=== PATIENT | male | born 1940 | race Caucasian/White ===

== ENCOUNTER 2025-01-20 09:45 | Inpatient (IN) | payer MEDICARE, SELFPAY ==
[2025-01-20] VITALS (8 sets, daily range): BP systolic 101–124; BP diastolic 50–100; PULSE 60–149; RESP 16–25; TEMP 36.6–36.9; O2SAT 93–99; BMI 23.0; BMI 24.7
[2025-01-20] MEDS: 0.9% Normal Saline (1000mL) 1,000 ML 125 ML IV (10:18)
[2025-01-20 10:25] LABS: Hematocrit 42.6 % (40-54); Hemoglobin 14.5 g/dL (13.0-16.5); Immature Granulocytes Count 0.060 X10^3/uL (0.0-0.0); Mean Corp Hgb Conc 34.0 g/dL (32-36); Mean Corpuscular Volume 91.6 fL (80-94); Mean Platelet Vol. 9.4 fl (6.2-12.0); NRBC Flagged by Analyzer 0 % (0-5); POSITIVE DIFFERENTIAL YES; Platelet Count 153 K/mm3 (150-450); RBC Distribution Width CV 14.4 % (11.6-14.6); RBC Distribution Width SD 47.8 fl (35.1-43.9); Red Blood Count 4.65 M/mm3 (4.6-6.2); White Blood Count 13.2 K/mm3 (4.4-11.0)
--- NOTE | 2025-01-20 10:27 | ED.RN ---
THIS RN CALLED PTS TO FIND OUT IF HE WAS ON A BLOOD THINNER AND NORMAL MENTATION. PTS STATES HE IS NORMALLY INTERMITTENTLY CONFUSED AND UNSURE IF HE IS ON A BLOOD THINNER
--- NOTE | 2025-01-20 10:36 | ED.VIS.GI ---
HPI HPI - GI History of Present Illness Chief Complaint: GI Bleed Informant: patient and EMS Limited: dementia Narrative Narrative: Patient is 84-year-old male presenting from [facility] for concern of an episode of hematemesis today. Patient reportedly had 1 episode of vomiting that had coffee-ground substance in it. No caitlin blood reported. Per paperwork patient arrived with he is a full code but we did not get a medication list. Patient is not able to answer questions. SNF says he is ANO x 3 at baseline and EMS states he was ANO x 1 for them. Patient has no complaints. He does not know why he is in the emergency room. Nursing staff able to speak to the patient's who states that he fluctuates in his mentation capabilities. She does not think he is on any blood thinners. Patient tells me that he ate breakfast this morning but does not provide any other history. He states he has no complaints at this time. When asked if he has any chest pain, nausea or abdominal pain he states no and smiles. 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, stage 3b Depression, unspecified Unspecified dementia, unspecified severity, without behavioral disturbance, psychotic disturbance, mood disturbance, and anxiety Wedge compression fracture of t11-T12 vertebra, subsequent encounter for fracture with routine healing Home Medications ?Medication ?Instructions ?Recorded ?Last Taken ?Type clonazepam 0.5 mg tablet 0.5 mg PO Q12H ANXIETY 01/20/25 01/19/25 History divalproex 125 mg tablet,delayed 125 mg PO BID dementia 01/20/25 Unknown History release memantine 5 mg tablet 5 mg PO BID dementia 01/20/25 Unknown History polyethylene glycol 3350 17 17 g PO DAILY constipation 01/20/25 Unknown History gram/dose oral powder (Miralax) sertraline 100 mg tablet (Zoloft) 100 mg PO DAILY depression 01/20/25 Unknown History tamsulosin 0.4 mg capsule 0.4 mg PO QHS BPH 01/20/25 Unknown History Allergy/AdvReac Type Severity Reaction Status Date / Time meperidine Allergy Unknown PT UNSURE Verified 01/20/25 09:47 OF REACTION oxycodone Allergy Unknown PT UNSURE Verified 01/20/25 09:47 OF REACTION Social History Smoking Status: Never smoker ROS ROS ED Review of Systems ROS Unobtainable: due to mental status EXAM Physical Exam Const Vital Signs: 01/20/25 09:48 01/20/25 11:29 01/20/25 11:45 Temperature 97.9 F 98.3 F Temperature Source Oral Oral Pulse Rate 70 66 66 Respiratory Rate 25 H 24 H 21 H Blood Pressure 106/54 L 114/100 H 110/61 Blood Pressure Mean 71 104 77 Pulse Ox 96 98 98 Oxygen Delivery Method Room Air Room Air Room Air 01/20/25 12:51 Temperature 98.3 F Temperature Source Pulse Rate 65 Respiratory Rate 16 Blood Pressure 112/83 H Blood Pressure Mean 92 Pulse Ox 98 Oxygen Delivery Method Positive well nourished and well developed General Appearance ED: well developed, NAD and pallor HEENT Reports dry mucous membranes Mouth ED: Yes dry mucous membranes Mouth: dry mucous membranes Eyes PERRL and EOMs intact bilaterally General Eye ED: Negative for pale conjunctiva Neck supple Resp normal respiratory effort and clear to auscultation bilaterally Cardio regular rate and regular rhythm GI non-tender and non-distended GI Narrative: Chaperoned rectal exam performed. Brown stool noted with no significant fecal impaction in the rectal vault. Stool is Hemoccult positive. Auscultation: normoactive bowel sounds Palpation: soft; Negative for tender or guarding Extremity full ROM General Extremety ED: Negative for edema General Extremity: Negative for edema Neuro moves all extremities Sensorium / Orientation: alert and oriented to person Motor Exam: Negative for general weakness Psych mental status grossly normal Psych Narrative: Pleasantly demented Skin General Skin Exam: pallor; Negative for jaundice MDM MDM MDM Narrative Medical decision making narrative: Patient is evaluated for new report of episode of vomiting with coffee-ground emesis prior to arrival. History is limited from the patient. He has no physical complaints. Differential includes not limited to upper GI bleeding, gastric ulcer, gastritis, aspiration, pancreatitis, cholecystitis, symptomatic anemia, Depakote toxicity (patient is on Depakote at baseline), dehydration and MAYRA. Patient is asymptomatic. Initially given gentle IV fluids in the emergency room however he is found have a leukocytosis of 13.2 and an elevated lactate of 3.1. Unclear if this is infectious versus associated with dehydration versus acute blood loss. He does not have any signs of active hemorrhage in the ER and his hemoglobin is actually normal at 14.5. He does have an elevated BUN as well as creatinine (BUN is at his baseline at 42 and creatinine is at baseline at 1.81). Patient is given IV Protonix in the emergency room. He is Hemoccult positive. Remainder of workup is largely negative. CT of the chest abdomen pelvis is added on looking for source of possible infection as well as further evaluation of the GI tract given report of vomiting and to rule out obstruction. He does have retained stool throughout the colon but no fine emergency room physician assistant with acute diverticulitis. There is questionable stool impaction however this is not consistent with rectal exam. Given patient's leukocytosis and lactic acidosis as well as report of likely hematemesis prior to arrival patient will be admitted for further observation. Is given a bolus of IV fluids in the emergency room. Case discussed with admitting surgeon, Dr. Azul. Lab Data Attestation: I reviewed the patient's lab results. Labs: Laboratory Results - last 24 hr 01/20/25 01/20/25 10:15 10:35 WBC 13.2 H RBC 4.65 Hgb 14.5 Hct 42.6 MCV 91.6 MCH 31.2 MCHC 34.0 RDW Std Deviation 47.8 H RDW Coeff of Eva 14.4 Plt Count 153 MPV 9.4 Immature Gran % (Auto) 0.500 Neut % (Auto) 88.2 H Lymph % (Auto) 3.4 L [place] % (Auto) 7.7 Eos % (Auto) 0.0 Baso % (Auto) 0.2 Absolute Neuts (auto) 11.6 H Absolute Lymphs (auto) 0.45 L Nucleated RBC % 0 PT 14.7 INR 1.1 APTT 24.5 Sodium 137 Potassium 5.6 H Chloride 102 Carbon Dioxide 20.2 L Anion Gap 15 BUN 42 H Creatinine 1.81 H Estim Creat Clear Calc 35.55 L Est GFR (MDRD) Non-Af 36 L BUN/Creatinine Ratio 23.4 H Glucose 161 H Lactic Acid 3.1 H* Calcium 9.7 Phosphorus 3.0 Magnesium 1.9 Total Bilirubin 0.43 AST 26 ALT 22 Alkaline Phosphatase 101 Total Protein 7.5 Albumin 4.0 Globulin 3.5 Albumin/Globulin Ratio 1.2 Lipase 26 Valproic Acid 10 L Blood Type A POSITIVE Antibody Screen NEGATIVE Radiography Diagnostic Testing: Clinical Impression(s) from Imaging Studies Chest/Abdomen/Pelvis CT 01/20/25 11:18 IMPRESSION: No suspicious solid organ abnormality, nonobstructing renal stones. Retained stool throughout the colon with scattered diverticula, no CT evidence of acute diverticulitis, stool may be impacted No free intraperitoneal fluid, air, or suspicious adenopathy Degenerative bony changes Reading Location: [facility] Rhythm Strip Rhythm Strip: Sinus Rhythm Rate: 69 Ectopy: None EKG Initial EKG: Attestation: I personally reviewed and interpreted this EKG as follows: Interpretation: Sinus Rhythm Comments: Normal sinus rhythm rate of 69 bpm Normal axis, normal intervals Normal ST segment Management Discussion w/another healthcare provider: Hospitalist Discharge Plan Dx/Rx/DC Orders Clinical Impression: Vomiting, Upper gastrointestinal bleeding, CKD (chronic kidney disease), Leukocytosis, Elevated lactic acid level Disposition Disposition: Acute Care Hospital [facility] Discharge Date/Time: 01/20/25 13:52
[2025-01-20 10:53] LABS: AST(SGOT) 26 U/L (<=37); Alanine Aminotransfer ALT/SGPT 22 U/L (<=46); Albumin, Serum 4.0 g/dL (3.4-4.8); Alkaline Phosphatase 101 U/L (40-129); Anion Gap 15 (5-15); BUN 42 mg/dL (4-19); BUN/Creat Ratio 23.4 RATIO (10-20); Calcium,Total 9.7 mg/dL (7.6-11.0); Carbon Dioxide 20.2 mmol/L (21.0-32.0); Chloride 102 mmol/L (98-108); Estimated Creatinine Clearance 35.55 ml/min (50-250); Globulin 3.5 g/dL (2.2-4.2); Glucose 161 mg/dL (70-99); Lipase 26 U/L (13-75); Potassium 5.6 mmol/L (3.3-5.1)
[2025-01-20] MEDS: Pantoprazole Sodium 40 MG in 0.9% Normal Saline (100mL MB+) 100 ML 300 MG IV ×2 (11:00→23:07)
[2025-01-20 11:04] LABS: Valproic Acid (Depakene) Level 10 ug/mL (50-100)
[2025-01-20 11:08] LABS: Prothrombin Time (Protime)PT. 14.7 SECONDS (11.7-14.9)
--- NOTE | 2025-01-20 11:08 | EKG12_ITS ---
Test Reason : GI BLEED Blood Pressure : */* mmHG Vent. Rate : 69 BPM Atrial Rate : 69 BPM P-R Int : 200 ms QRS Dur : 86 ms QT Int : 380 ms P-R-T Axes : 2 52 51 degrees QTcB Int : 407 ms Normal sinus rhythm Normal ECG Confirmed by NAZARIO HOLCOMB, EDGAR ([id number]), graphics editor RAH CANTU ([id number]) on 01/24/2025 6:00:12 AM Referred By: Confirmed By: EDGAR LANGE MD
[2025-01-20 11:09] LABS: Partial Thromboplast Time 24.5 Seconds (24.1-36.2)
--- NOTE | 2025-01-20 11:18 | CT_ITS ---
PROCEDURE: CT CHEST, ABD, PELVIS WO CONT 01/20/2025 REASON FOR EXAM: ELEVATED LACTATE, HEMATEMESIS TECHNIQUE: Chest, abdomen and pelvis CT without intravenous contrast. Coronal and Sagittal reconstruction series were provided. One or more dose reduction techniques were used (e.g., Automated exposure control, adjustment of the mA and/or kV according to patient size, use of iterative reconstruction technique. No oral contrast. RADIATION DOSE SUMMARY: CTDlvol: 25.23 mGy DLP: 1154.55 mGycm COMPARISON: None FINDINGS: CT CHEST: Lung windows show scattered patchy airspace opacifications in both lung quinn consistent with multifocal pneumonitis along with small bilateral pleural effusions, and bibasilar atelectasis. There is nonspecific pleural thickening in both hemithoraces. Soft tissue windows show a normal-appearing thyroid gland. No suspicious axillary, mediastinal or perihilar adenopathy. Peripheral calcifications in the thoracic aorta without aneurysm. There are calcified coronary vessels. Bony structures show degenerative change. Pacer leads noted along the base of the heart CT ABDOMEN / PELVIS: Noncontrast technique limits evaluation of the abdominal and pelvic viscera. Liver: Normal size. No mass. Gallbladder: Surgically absent. Spleen: Normal size. Scattered calcified granulomata. Pancreas: Normal size without evidence of mass surrounding inflammation or ductal dilation. Adrenals: Unremarkable Kidneys: No obstructive uropathy or suspicious solid renal lesion, there are punctate nonobstructing renal stones. Bladder: Distends normally Bowel: Small bowel loops are unremarkable, no evidence of obstruction. Retained stool noted throughout the colon with extensive diverticular disease, no CT evidence of acute diverticulitis. Retained stool noted in the distended rectum suggests there may be impaction. Appendix: Not visualized Lymph nodes: No suspicious mesenteric or retroperitoneal lymphadenopathy Vasculature: Peripheral calcifications in the ectatic abdominal aorta without aneurysm Peritoneum / Retroperitoneum: No free air or fluid Bones: Degenerative bony changes, replaced right hip joint free of complication CT/CT Chest, Abd, Pelvis WO Cont IMPRESSION: No suspicious solid organ abnormality, nonobstructing renal stones. Retained stool throughout the colon with scattered diverticula, no CT evidence of acute diverticulitis, stool may be impacted No free intraperitoneal fluid, air, or suspicious adenopathy Degenerative bony changes Reading Location: [id number]
[2025-01-20] MEDS: 0.9% Normal Saline (1000mL) 1,000 ML 999 ML IV (11:35)
--- NOTE | 2025-01-20 13:04 | PCM.HP.STD ---
HPI - General General Date of Admission: 01/20/25 Date of Service: 01/20/25 Chief Complaint: History unclear. 1 episode of coffee-ground vomiting. Altered mental status. Cough unclear duration HPI Narrative SAMIA RIVERA, is a 84 M with history of dementia/anxiety/depression on multiple medications including clonazepam, divalproex and memantine was sent to ED from [facility] for 1 episode of coffee-ground emesis. Patient is also confused and disoriented to time place and person. As per senior living patient is on AO x 3 at baseline but is hard to believe. As per patient's he fluctuates on his mental capacity and cognition. Patient himself states he has cough but does not know duration but seems chronic. Patient did not have fever. In the ED, the ED physician did the rectal exam and the guaiac was positive and the stool looked brown and stool was not impacted. Patient does not any specific question regarding duration of cough, type, shortness of breath chest pain or abdominal pain nausea but he has inattention and taking out pulse oximetry from finger In ED, overall vitals are stable. CT chest and abdomen was done shows sketchy patchy airspace affecting both lower lung quinn/multifocal pneumonitis along with small bilateral pleural effusion and bibasilar atelectasis. CT abdomen shows retained stool throughout the colon with scattered diverticula but no CT evidence of acute diverticulitis. No free intraperitoneal fluid air or suspicious adenopathy. Reported stool may be impacted. I talked to patient's for history she could not give detailed history but agreeable for DNR CC arrest with no intubation [facility] Medical History Other constipation Generalized anxiety disorder Other symbolic dysfunctions Need for assistance with personal care Difficulty in walking, not elsewhere classified Displaced fracture of third metatarsal bone, right foot, subsequent encounter for fracture with routine healing Muscle weakness (generalized) Benign prostatic hyperplasia with lower urinary tract symptoms Presence of cardiac pacemaker Chronic kidney disease, stage 3b Depression, unspecified Unspecified dementia, unspecified severity, without behavioral disturbance, psychotic disturbance, mood disturbance, and anxiety Wedge compression fracture of t11-T12 vertebra, subsequent encounter for fracture with routine healing Home Medications ?Medication ?Instructions ?Recorded ?Last Taken ?Type clonazepam 0.5 mg tablet 0.5 mg PO Q12H ANXIETY 01/20/25 01/19/25 History divalproex 125 mg tablet,delayed 125 mg PO BID dementia 01/20/25 Unknown History release memantine 5 mg tablet 5 mg PO BID dementia 01/20/25 Unknown History polyethylene glycol 3350 17 17 g PO DAILY constipation 01/20/25 Unknown History gram/dose oral powder (Miralax) sertraline 100 mg tablet (Zoloft) 100 mg PO DAILY depression 01/20/25 Unknown History tamsulosin 0.4 mg capsule 0.4 mg PO QHS BPH 01/20/25 Unknown History Allergy/AdvReac Type Severity Reaction Status Date / Time meperidine Allergy Unknown PT UNSURE Verified 01/20/25 09:47 OF REACTION oxycodone Allergy Unknown PT UNSURE Verified 01/20/25 09:47 OF REACTION Social History Smoking Status: Never smoker ROS Review of Systems ROS Unobtainable: due to mental condition and due to mental status Vital Signs Vital Signs Vital Signs: 01/20/25 09:48 01/20/25 11:29 01/20/25 11:45 Temperature 97.9 F 98.3 F Temperature Source Oral Oral Pulse Rate 70 66 66 Respiratory Rate 25 H 24 H 21 H Blood Pressure 106/54 L 114/100 H 110/61 Blood Pressure Mean 71 104 77 Pulse Ox 96 98 98 Oxygen Delivery Method Room Air Room Air Room Air 01/20/25 12:51 Temperature 98.3 F Temperature Source Pulse Rate 65 Respiratory Rate 16 Blood Pressure 112/83 H Blood Pressure Mean 92 Pulse Ox 98 Oxygen Delivery Method Weight Weight: 189 lb 2.506 oz Body Mass Index (BMI) 23.0 Physical Exam Narrative General: Awake, inattention, confused disoriented to time place and person. HEENT: Atraumatic, PERRLA, EOMI, Normocephalic. Oral: Oral mucosa dry no Gingival or Mucosal Lesions/ Ulcerations Neck: Supple, No JVD, Negative Carotid Bruits Chest wall/Lungs: Air entry diminished in bilateral lung bases. Mild bilateral basilar crackle crepitations. No hypoxia or tachypnea Cardiovascular: Regular rate and rhythm, Normal S1,S2, No M/G/R Abdomen: Bowel Sounds Present, Soft, Non Tender, Non-Distended : No dysuria. No renal angle tenderness. No suprapubic tenderness. Extremities: No edema, Capillary Refill Less than 3 Seconds Skin: Small, left suprascapular region scab and cutaneous scratch. No active infected wound. Musculoskeletal: No Tenderness to Palpation of Joints or Extremities. Degenerative bony arthritis of bilateral knees Neurological: Cranial nerves II-XII grossly intact, DTR 2+/4. No acute focal neurological deficit. Psych/Mental Status: Flat affect, dementia Results Lab / Micro Data 01/20/25 10:15 01/20/25 10:15 Labs: Laboratory Results - last 24 hr 01/20/25 10:15: WBC 13.2 H, RBC 4.65, Hgb 14.5, Hct 42.6, MCV 91.6, MCH 31.2, MCHC 34.0, RDW Std Deviation 47.8 H, RDW Coeff of Eva 14.4, Plt Count 153, MPV 9.4, Immature Gran % (Auto) 0.500, Neut % (Auto) 88.2 H, Lymph % (Auto) 3.4 L, [place] % (Auto) 7.7, Eos % (Auto) 0.0, Baso % (Auto) 0.2, Absolute Neuts (auto) 11.6 H, Absolute Lymphs (auto) 0.45 L, Nucleated RBC % 0, Sodium 137, Potassium 5.6 H, Chloride 102, Carbon Dioxide 20.2 L, Anion Gap 15, BUN 42 H, Creatinine 1.81 H, Estim Creat Clear Calc 35.55 L, Est GFR (MDRD) Non-Af 36 L, BUN/Creatinine Ratio 23.4 H, Glucose 161 H, Lactic Acid 3.1 H*, Calcium 9.7, Total Bilirubin 0.43, AST 26, ALT 22, Alkaline Phosphatase 101, Total Protein 7.5, Albumin 4.0, Globulin 3.5, Albumin/Globulin Ratio 1.2, Lipase 26, Blood Type A POSITIVE, Antibody Screen NEGATIVE 01/20/25 10:35: PT 14.7, INR 1.1, APTT 24.5, Valproic Acid 10 L Micro: Microbiology 01/20/25 11:30 Stool Stool Occult Blood (MAG) - Final Occult Blood Positive Imaging Radiology Impression Chest/Abdomen/Pelvis CT 01/20/25 11:18 IMPRESSION: No suspicious solid organ abnormality, nonobstructing renal stones. Retained stool throughout the colon with scattered diverticula, no CT evidence of acute diverticulitis, stool may be impacted No free intraperitoneal fluid, air, or suspicious adenopathy Degenerative bony changes Reading Location: [facility] Assessment & Plan Assessment/Plan (1) Upper gastrointestinal bleeding: (2) Aspiration pneumonia: PLAN: Plan This 34-year-old gentleman with history of dementia was sent from senior living for 1 episode of coffee-ground emesis and possible aspiration 1. Possible aspiration pneumonitis: Patient has cough and cognitive dysfunction. CT chest shows scattered patchy airspace opacification in both lung quinn consistent with multifocal pneumonitis along with small bilateral pleural effusion and bibasilar atelectasis. Empirically patient started on IV Unasyn. Triple PCR. Lactic acid 3.1 but patient does not look septic and does not have SIRS criteria therefore does not qualify for sepsis. Lactic acid elevated probably from decreased perfusion and CKD. Speech therapy evaluation 2. Suspected upper GI bleed: Patient had coffee-ground emesis. BUN/creatinine ratio 23.4. H&H 14.5/42. Monitor H&H every 8 hourly. As per ED physician Coactin stool was positive and was brown in color. No rectal impaction of the stool. CT shows diverticulosis but no evidence of acute diverticulitis. Retained stool throughout the colon. Stool softener and Dulcolax suppository ordered. Home medication does not show antiplatelet or anticoagulant agent. IV PPI 40 mg twice daily ordered 3. CKD stage IIIb: Patient creatinine on baseline. Last BUN/creatinine 42/1.79 October 13 currently 42/1.81. Clinically patient looks dehydrated therefore IV fluid ordered 4. Dementia with history of anxiety and depression: Patient on Depakote, memantine, clonazepam and Zoloft. Twelve-lead EKG shows NSR 69 bpm, normal EKG. Continue hold oral medication as swallow function needs evaluation. 5. Chronic constipation: As mentioned above. On a stool softener and Dulcolax suppository Living will/advanced directive/end of life care: Patient does not have living will or advanced directive. The patient himself has dementia and does not have understanding of complexities of advanced directive. After discussion of benefits/risks procedures involved with full code, DNR CC arrest and DNR CC to patient's , her POA for health , she she understood and said DNR CC arrest with no intubation. She said patient did not want CPR or intubation. DNR CC arrest with no intubation. As per POA, patient does not want artificial life support including intubation, tube feed, ventilator and/chest compression, central venous catheter, vasopressor and DC shock if needed Total time spent in [id number] encounter in discussion of advanced directive 17 minutes. Microbiology Past 72 Hours 01/20/25 12:30 Mucosa - Nose SARS-CoV-2, Influenza & RSV (PCR) - Final 01/20/25 11:30 Stool Stool Occult Blood (MAG) - Final Occult Blood Positive Laboratory Results 01/20/25 10:15: WBC 13.2 H, RBC 4.65, Hgb 14.5, Hct 42.6, MCV 91.6, MCH 31.2, MCHC 34.0, RDW Std Deviation 47.8 H, RDW Coeff of Eva 14.4, Plt Count 153, MPV 9.4, Immature Gran % (Auto) 0.500, Neut % (Auto) 88.2 H, Lymph % (Auto) 3.4 L, [place] % (Auto) 7.7, Eos % (Auto) 0.0, Baso % (Auto) 0.2, Absolute Neuts (auto) 11.6 H, Absolute Lymphs (auto) 0.45 L, Nucleated RBC % 0, Sodium 137, Potassium 5.6 H, Chloride 102, Carbon Dioxide 20.2 L, Anion Gap 15, BUN 42 H, Creatinine 1.81 H, Estim Creat Clear Calc 35.55 L, Est GFR (MDRD) Non-Af 36 L, BUN/Creatinine Ratio 23.4 H, Glucose 161 H, Lactic Acid 3.1 H*, Calcium 9.7, Phosphorus 3.0, Magnesium 1.9, Total Bilirubin 0.43, AST 26, ALT 22, Alkaline Phosphatase 101, Total Protein 7.5, Albumin 4.0, Globulin 3.5, Albumin/Globulin Ratio 1.2, Lipase 26, Blood Type A POSITIVE, Antibody Screen NEGATIVE 01/20/25 10:35: PT 14.7, INR 1.1, APTT 24.5, Valproic Acid 10 L 01/20/25 14:48: Lactic Acid 2.6 H* Clinical Impression(s) from Imaging Studies Chest/Abdomen/Pelvis CT 01/20/25 11:18 IMPRESSION: No suspicious solid organ abnormality, nonobstructing renal stones. Retained stool throughout the colon with scattered diverticula, no CT evidence of acute diverticulitis, stool may be impacted No free intraperitoneal fluid, air, or suspicious adenopathy Degenerative bony changes Charges/Coding Visit Charges Inpatient E&M: 01306 Init Hosp L3 Procedures Hospitalists Procedures: 94032 Advncd Care Plan 30 Min
[2025-01-20] MEDS: Azithromycin 500 MG in 0.9% Normal Saline (250mL Bag) 250 ML 250 MG IV (13:22)
[2025-01-20 13:56] LABS: Magnesium 1.9 mg/dL (1.5-2.2)
[2025-01-20 14:19] LABS: Reflex Lactate? Y
[2025-01-20] MEDS: Ampicillin/Sulbactam 3 GM in 0.9% Normal Saline (100mL MB+) 100 ML IV ×2 (15:50→18:25)
[2025-01-20] MEDS: 0.9% Normal Saline (1000mL) 1,000 ML 100 ML IV (18:25)
--- NOTE | 2025-01-20 23:25 | NURSING ---
during rounds, nurse entered pt room, pt had an skin tear on left shoulder. skin tear cleasned, dressed w/ adaptic, guaze, tape. pt tolerated well
[2025-01-20 23:54] LABS: Mucous, Urine 0 SEEN /hpf (<or=2+); Red Blood Cells-Urine 0 SEEN /hpf (0-5); Squamous Epithelial Cells - UA 0 SEEN /hpf (0-5)
[2025-01-21] VITALS (24 sets, daily range): BP systolic 104–129; BP diastolic 49–78; PULSE 60–105; RESP 18–33; TEMP 36.6–37.1; O2SAT 6–100; BMI 24.6
[2025-01-21] MEDS: Ampicillin/Sulbactam 3 GM in 0.9% Normal Saline (100mL MB+) 100 ML IV ×5 (00:15→23:48)
--- OUTSIDE RECORDS SUMMARY | 2025-01-21 00:24 | XMS RPT_ITS | CCD ---
Author Organization [facility] Care Team Providers Care Manager Construction Name Role Phone KEREN HOLCOMB, DR JENNIFER Song Primary Care Unavailab Shan HOLCOMB, [place]ER[place] Consulting Unavailable MARK TEIXEIRA DO Admitting Unavailable ALIS HOLCOMB, [place] Attending Unavailable TERA HOLCOMB, DR MCINTOSH Attending Un available KEREN HOLCOMB, DR JENNIFER Song Primary Care Unavailab taylor BOWDEN, RICA Attending Un available KEREN HOLCOMB, DR JENNIFER Song Primary Care Unavailab Josiane HOLCOMB, DR JENNIFER Song Attending Unavailab taylor VELIZ MD, DR JENNIFER Song Primary Care Unavailab taylor BOWDEN, RICA Attending Un available KEREN HOLCOMB, DR JENNIFER Song Primary Care Unavailab taylor VELIZ MD, DR JENNIFER Song Attending Unavailab taylor VELIZ MD, DR JENNIFER Song Primary Care Unavailab JENNIFER Joshua Primary Care Unavailable RAYMOND MARTINES Admitting UnavailUMANG Pisano Attending Unavailable NICKO JARRETT III Consulting Unavailable JENNIFER VELIZ Primary Care Unavailable CURTIS ANNA Referring Unavailable JENNIFER VELIZ Primary Care Unavailable JENNIFER VELIZ Primary Care Unavailable CURTIS ANNA Attending Unavailable JENNIFER VELIZ Primary Care Unavailable Jeniffer Gaona Attending Unavailable Allergies Allergy Classification Reported Allergen(s) Allergy Type Date of Onset Reaction(s) Facility (1 source) Meperidine; Translations: [MEPERIDINE] Drug Allergy 04-28-2009 [facility] Repository (1 source) oxyCODONE; Translations: [OXYCODONE] Drug Allergy 03-31-2024 [facility] Repository Problems Active Problems Problem Classification Problem Date Documented Da te Episodic/Chronic Anxiety disorders (4 sources) Anxiety disorder, unspecified; Translations: [Anxiety disorder, unspecified] Onset: 02-26-2023 Chronic Cardiac dysrhythmias (3 sources) Sick sinus syndrome; Translations: [Sick sinus syndrome] Onset: 09-02-2022 Chronic Chronic kidney disease (1 source) Chronic kidney disease, unspecified; Translations: [Anemia of chronic renal failure, unspecified CKD stage] Onset: 03-15-2024 Chronic Chronic kidney disease (3 sources) Chronic kidney disease; Translations: [Chronic kidney disease, stage 3 unspecified] Onset: 02-17-2024 Conduction disorders (1 source) Presence of cardiac pacemaker; Translations: [Pacemaker] Onset: 04-01-2024 Chronic Deficiency and other anemia (1 source) Anemia in chronic kidney disease; Translations: [Anemia of chronic renal failure, unspecified CKD stage] Onset: 03-15-2024 Chronic Esophageal disorders (2 sources) Gastro-esophageal reflux disease without esophagitis; Translations: [Gastro-esophageal reflux disease without esophagitis] Onset: 02-17-2024 Chronic Essential hypertension (2 sources) Essential (primary) hypertension; Translations: [Essential (primary) hypertension] Onset: 02-26-2023 Chronic Malaise and fatigue (1 source) Weakness; Translations: [Generalized weakness] Onset: 08-16-2024 Episodic Other connective tissue disease (1 source) Repeated falls; Translations: [Multiple falls] Onset: 08-16-2024 Episodic Other endocrine disorders (1 source) Secondary hyperparathyroidism , not elsewhere classified; Translations: [Secondary hyperparathyroidism , non-renal (HCC)] Onset: 03-15-2024 Chronic Other nervous system disorders (1 source) Difficulty in walking, not elsewhere classified; Translations: [Impaired ambulation] Onset: 08-16-2024 Chronic Other nutritional; endocrine; and metabolic disorders (2 sources) Abnormal weight loss; Translations: [Abnormal weight loss] Onset: 02-26-2023 Episodic Other screening for suspected conditions (not mental disorders or infectious disease) (2 sources) Encounter for screening for lipoid disorders; Translations: [Encounter for screening for lipoid disorders] Onset: 02-26-2023 Episodic Residual codes; unclassified (2 sources) Other amnesia; Translations: [Other amnesia] Onset: 02-26-2023 Episodic Residual codes; unclassified (1 source) Altered mental status, unspecified; Translations: [Altered mental status, unspecified] Onset: 10-16-2024 Episodic Spondylosis; intervertebral disc disorders; other back problems (4 sources) Dorsalgia, unspecified; Translations: [Dorsalgia, unspecified] Onset: 02-26-2023 Episodic Past or Other Problems Problem Classification Problem Date Documented Da te Episodic/Chronic Fluid and electrolyte disorders (2 sources) Hyperkalemia; Translations: [Hyperkalemia] Onset: 09-06-2022 Episodic Immunizations and screening for infectious disease (2 sources) Encounter for screening for other viral diseases; Translations: [Encounter for screening for other viral diseases] Onset: 09-02-2022 Episodic Other diseases of kidney and ureters (2 sources) Disorder of kidney and ureter, unspecified; Translations: [Disorder of kidney and ureter, unspecified] Onset: 09-06-2022 Episodic Results Test Name Value Interpretation Reference Range Facility CBC panel Auto (Bld)on 08-20 Erythrocyte distribution width (RBC) [Ratio] 13.9 % Normal 11.5-15.0 [facility] Comment on above: Order Comment: Specimen Type: BLOOD SPEC IMEN Ordering Facility: [facility] Address: [address] [place] [address] Performed By: #### 3 084-1, 273-8, 81388-7 #### [facility] CLIA [id number] [address] [place] [address] [place] Hematocrit (Bld) [Volume fraction] 34.2 % Low 39.0-51.0 [facility] Comment on above: Order Comment: Specimen Type: BLOOD SPEC IMEN Ordering Facility: [facility] Address: [address] [place] [address] Performed By: #### 3 084-1, 2735-8, 60548-3 #### [facility] CLIA [id number] [address] [place] [address] [place] Hemoglobin (Bld) [Mass/Vol] 11.7 g/dL Low 13.0-17.0 [facility] Comment on above: Order Comment: Specimen Type: BLOOD SPEC IMEN Ordering Facility: [facility] Address: [address] [place] [address] Performed By: #### 3 084-1, 2730-11, #### [facility] CLIA [id number] [address] [place] [address] [place] MCH (RBC) [Entitic mass] 31.6 pg Normal 26.0-34.0 [facility] Comment on above: Order Comment: Specimen Type: BLOOD SPEC IMEN Ordering Facility: [facility] Address: [address] [place] [address] Performed By: #### 3 084-1, 2730-11, #### [facility] CLIA [id number] [address] [place] [address] [place] MCHC (RBC) [Mass/Vol] 34.2 g/dL Normal 30.5-36.0 [facility] Comment on above: Order Comment: Specimen Type: BLOOD SPEC IMEN Ordering Facility: [facility] Address: [address] [place] [address] Performed By: #### 3 084-1, 2730-11, #### [facility] CLIA [id number] [address] [place] [address] [place] MCV (RBC) [Entitic vol] 92.4 fL Normal 80.0-100.0 [facility] Comment on above: Order Comment: Specimen Type: BLOOD SPEC IMEN Ordering Facility: [facility] Address: [address] [place] [address] Performed By: #### 3 084-1, 2730-11, #### [facility] CLIA [id number] [address] [place] [address] [place] Nucleated RBC (Bld) [#/Vol] 10*3/uL Normal <0.01 [facility] Comment on above: Order Comment: Specimen Type: BLOOD SPEC IMEN Ordering Facility: [facility] Address: [address] [place] [address] Performed By: #### 3 084-1, 2730-11, #### [facility] CLIA [id number] [address] [place] [address] [place] Platelet mean volume (Bld) [Entitic vol] 9.3 fL Normal 9.0-12.7 [facility] Comment on above: Order Comment: Specimen Type: BLOOD SPEC IMEN Ordering Facility: [facility] Address: [address] [place] [address] Performed By: #### 3 084-1, 2730-11, #### [facility] CLIA [id number] [address] [place] [address] [place] Platelets (Bld) [#/Vol] 151 10*3/uL Normal 150-400 [facility] Comment on above: Order Comment: Specimen Type: BLOOD SPEC IMEN Ordering Facility: [facility] Address: [address] [place] [address] Performed By: #### 3 084-1, 2730-11, #### [facility] CLIA [id number] [address] [place] [address] [place] RBC (Bld) [#/Vol] 3.70 10*6/uL Low 4.20-6.00 [facility] Comment on above: Order Comment: Specimen Type: BLOOD SPEC IMEN Ordering Facility: [facility] Address: [address] [place] [address] Performed By: #### 3 084-1, 2730-11, #### [facility] CLIA [id number] [address] [place] [address] [place] WBC (Bld) [#/Vol] 5.70 10*3/uL Normal 3.70-11.00 [facility] Comment on above: Order Comment: Specimen Type: BLOOD SPEC IMEN Ordering Facility: [facility] Address: [address] [place] [address] Performed By: #### 3 084-1, 2730-11, 76549-7 #### [facility] CLIA [id number] [address] [place] [address] OF [facility] CNDSon 08-20-2024 CNDS HNO ID: [id number] Author: UMANG WOOD MD Service: Hospital Medicine Author Type: Physician Type: Discharge Summary Filed: 08/20/2024 11:23 Note Text: P DISCHARGE SUMMARY PATIENT NAME: Samia Rivera ADMISSION DATE: 08/16/2024 DISCHARGE DATE: 08/20/2024 Attending Physician: Umang Wood MD Code Status: Full Code Highest Readmission Risk Score: 20 The 30 day readmissions risk score is derived from an internally validated risk model which evaluates patient level characteristics, utilization history, medication orders and lab results up until the day of discharge. Patients with a score of 39 or above are considered highest risk for readmission. Specific patient level drivers will be listed at the bottom of the summary. Reason for Hospitalization: Recurrent falls 83 years old with past medical history of dementia, sick sinus syndrome status post pacemaker, CKD stage IIIb, hypertension, secondary hyperparathyroidism, BPH and depression presented on account of frequent recurrent falls with generalized weakness over the last few weeks. In the ED, vital signs are unremarkable. CMP showed creatinine 1.75 with a CO2 of 20. CBC showed hemoglobin of 12, D-dimer 69883. Viral panel unremarkable. Imaging showed deformity change. Otherwise unremarkable Hospital Course: Recurrent falls Generalized weakness Moderate T12 compression deformity Moderate to severe degenerative changes of mild and lower spine [] PT and OT recommended SNF, [] Follow-up as an outpatient Right foot pain - X-ray of the foot showed minimally impacted fracture of the 2nd through 4th metatarsal with osteopenia and diffuse soft tissue -Podiatry was consulted can weight-bear as tolerated in a surgical shoe with a walker if tolerable Elevated D-dimer -Reported some chest pain and shortness of breath on admission however patient is demented and poor historian - I did ask him hide reported no chest pain - D-dimer was obtained by admitting provider and came back [id number] - No leg swelling -Ultrasound of legs with no DVT - V/Q with low probability Chronic comorbidities PPI Dementia Depression CKD Anemia [] Continue home medications as deemed appropriate CODE STATUS is full code DVT prophylaxis heparin subcu The need for hospitalization- pending placement Consulting Teams During Hospitalization: Podiatry Treatment Team: Attending Provider: Umang Wood MD Attending: MR CHARLOTTE HAWTHORNE Consulting: Nicko Jarrett III, DPM Patient Condition @ Discharge: Stable Discharge Disposition: Residential Facility Residential Facility Discharge Checklist: Has Food And Nutrition Supervisor been notified of pending discharge today: Yes Medications reconciled: Yes Follow-up appointment orders placed: Yes Does the patient have a PICC line or central line: No Discharge medications reviewed: Yes Meds to Beds used: No General: Alert oriented x 1-2 HEENT: Normal cephalic, atraumatic, PERRLA, TM's normal, Nose clear, Mouth normal Neck: Negative hepatojugular reflux or jugular venous distention, negative carotid bruit. Lungs: Clear to auscultation, no wheezing, rales, or rhonchi. Cardiac: Regular rhythm and rate, S1-S2 within normal limits, no murmurs, gallops were appreciated, no rubs. Abdomen: Soft, nontender, nondistended, no HSM detected, bowel sounds are active. Dry skin Information Provided to Patient: Follow-up with primary care DIET: Resume pre-hospital diet ACTIVITY: Resume pre-hospital activity WOUND/SURGICAL SITE CARE: None ALLERGIES Allergen Reactions Meperidine GI Upset, Unknown Oxycodone Mental Status Change Discharge Medications: Medication List CONTINUE taking these medications sertraline 25 mg tablet Commonly known as: ZOLOFT tamsulosin 0.4 mg Commonly known as: FLOMAX Plan of Care: Plan of care discussed with Provider, RN, Patient Future Appointments: Follow Up with PCP: JENNIFER VELIZ MD Discharge Information Row Name ED to Hosp-Admission (Current) from 08/16/2024 in MR 9M TCU/MED Residential Facility Agency [facility] [address] [facility] [address] The patient's risk for 30-day readmission is determined using the following contributing factors: Predictive Model Details 15% (Low) Factor Value Calculated 08/20/2024 05:19 -20% Admissions (365d) 0 [facility] READMISSION RISK Model 13% Diagnosis Count 37 -12% Admissions (90d) 0 10% Hospital Unit MR 9M TCU/MED -9% [facility] GARNER 8% Observations (365d) 1 -8% Pieter Scale 13 -7% ED visits (365d) 0 6% Length of Stay (d) 0 6% Facility [facility] I have performed the [id number] and relevant services for a total of >30 minutes. SIGNATURE: Umang Wood MD DATE: August 20, 2024 TIME: 11:22 AM Normal [facility] Comprehensive metabolic 2000 panelon 08-20-2024 Albumin [Mass/Vol] 3.2 g/dL Normal 3.2-5.0 [facility] Comment on above: Order Comment: Specimen Type: BLOOD SPEC IMEN Ordering Facility: [facility] Address: [address] [place] [address] Performed By: #### 3 084-1, 2731-8, 79570-9 #### [facility] CLIA [id number] [address] [place] [address] [place] ALP [Catalytic activity/Vol] 83 U/L Normal 45-117 [facility] Comment on above: Order Comment: Specimen Type: BLOOD SPEC IMEN Ordering Facility: [facility] Address: [address] [place] [address] Performed By: #### 3 084-1, 273-8, 12936-7 #### [facility] CLIA [id number] [address] [place] [address] [place] ALT [Catalytic activity/Vol] 22 U/L Normal 13-61 [facility] Comment on above: Order Comment: Specimen Type: BLOOD SPEC IMEN Ordering Facility: [facility] Address: [address] [place] [address] Result Comment: Resu lts may be falsely depressed after the administration of Sulfasalazine and/or Sulfapyridine. Performed By: #### 3 084-1, 2731-8, 64850-0 #### [facility] CLIA [id number] [address] [place] [address] [place] Anion gap [Moles/Vol] 7 mmol/L Normal 5-16 [facility] Comment on above: Order Comment: Specimen Type: BLOOD SPEC IMEN Ordering Facility: [facility] Address: [address] [place] [address] Performed By: #### 3 084-1, 2730-11, #### [facility] CLIA [id number] [address] [place] [address] [place] AST [Catalytic activity/Vol] 30 U/L Normal 8-34 [facility] Comment on above: Order Comment: Specimen Type: BLOOD SPEC IMEN Ordering Facility: [facility] Address: [address] [place] [address] Result Comment: Resu lts may be falsely depressed after the administration of Sulfasalazine and/or Sulfapyridine. Performed By: #### 3 084-1, 2730-11, #### [facility] CLIA [id number] [address] [place] [address] [place] Bilirubin [Mass/Vol] 0.4 mg/dL Normal 0.2-1.0 [facility] Comment on above: Order Comment: Specimen Type: BLOOD SPEC IMEN Ordering Facility: [facility] Address: [address] [place] [address] Performed By: #### 3 084-1, 2730-11, #### [facility] CLIA [id number] [address] [place] [address] [place] Calcium [Mass/Vol] 9.5 mg/dL Normal 8.5-10.5 [facility] Comment on above: Order Comment: Specimen Type: BLOOD SPEC IMEN Ordering Facility: [facility] Address: [address] [place] [address] Performed By: #### 3 084-1, 2730-11, #### [facility] CLIA [id number] [address] [place] [address] [place] Chloride [Moles/Vol] 106 mmol/L Normal 98-107 [facility] Comment on above: Order Comment: Specimen Type: BLOOD SPEC IMEN Ordering Facility: [facility] Address: [address] [place] [address] Performed By: #### 3 084-1, 2730-11, 64537-0 #### [facility] CLIA [id number] [address] [place] [address] [place] CO2 [Moles/Vol] 24 mmol/L Normal 21-32 [facility] Comment on above: Order Comment: Specimen Type: BLOOD SPEC IMEN Ordering Facility: [facility] Address: [address] [place] [address] Performed By: #### 3 084-1, 2730-11, 46823-5 #### [facility] CLIA [id number] [address] [place] [address] [place] Creatinine [Mass/Vol] 1.43 mg/dL High 0.50-1.40 [facility] Comment on above: Order Comment: Specimen Type: BLOOD SPEC IMEN Ordering Facility: [facility] Address: [address] [place] [address] Result Comment: Cecy ents receiving either N-Acetylcysteine (NAC) or Metamizole prior to venipuncture, may have falsely depressed results. Performed By: #### 3 084-1, 2730-11, #### [facility] CLIA [id number] [address] [place] [address] Creatinine and Glomerular filtration rate.predicted panel (S/P/Bld) 48 mL/min/1.73m??? Low >=60 [facility] Comment on above: Order Comment: Specimen Type: BLOOD SPEC IMEN Ordering Facility: [facility] Address: [address] [place] [address] Result Comment: Promise mated Glomerular Filtration Rate (eGFR) is calculated using the 2020 CKD-EPI creatinine equation. This equation utilizes serum creatinine, sex, and age as parameters. The creatinine assay has traceable calibration to isotope dilution-mass spectrometry. Refer to KDIGO guidelines for clinical interpretation. In patients with unstable renal function, e.g. those with acute kidney injury, the eGFR may not accurately reflect actual GFR. Performed By: #### 3 084-1, 2730-11, 55405-1 #### [facility] CLIA [id number] [address] [place] [address] [place] Glucose [Mass/Vol] 95 mg/dL Normal 70-100 [facility] Comment on above: Order Comment: Specimen Type: BLOOD SPEC IMEN Ordering Facility: [facility] Address: [address] [place] [address] Result Comment: The [place] [employer] (ADA) provides guidance for cutoff values for fasting glucose and random glucose. The ADA defines fasting as no caloric intake for at least 8 hours. Fasting plasma glucose results between 100 to 125 mg/dL indicate increased risk for diabetes (prediabetes). Fasting plasma glucose results greater than or equal to 126 mg/dL meet the criteria for diagnosis of diabetes. In the absence of unequivocal hyperglycemia, results should be confirmed by repeat testing. In a patient with classic symptoms of hyperglycemia or hyperglycemic crisis, random plasma glucose results greater than or equal to 200 mg/dL meet the criteria for diagnosis of diabetes. Reference: Standards of Medical Care in Diabetes 2016, [place] [employer]. Diabetes Care. 2016.39(Suppl 1). Results may be falsely elevated after the administration of Sulfapyridine. Results may be falsely depressed after the administration of Sulfasalazine. Performed By: #### 3 084-1, 2731-8, 95094-7 #### [facility] CLIA [id number] [address] [place] [address] [place] Potassium [Moles/Vol] 4.5 mmol/L Normal 3.5-5.1 [facility] Comment on above: Order Comment: Specimen Type: BLOOD SPEC IMEN Ordering Facility: [facility] Address: [address] [place] [address] Performed By: #### 3 084-1, 2731-8, 70561-3 #### [facility] CLIA [id number] [address] [place] [address] [place] Protein [Mass/Vol] 6.5 g/dL Normal 6.0-8.5 [facility] Comment on above: Order Comment: Specimen Type: BLOOD SPEC IMEN Ordering Facility: [facility] Address: [address] [place] [address] Performed By: #### 3 084-1, 2731-8, 84062-1 #### [facility] CLIA [id number] [address] [place], [place] [id number] [place] Sodium [Moles/Vol] 137 mmol/L Normal 136-145 [facility] Comment on above: Order Comment: Specimen Type: BLOOD SPEC IMEN Ordering Facility: [facility] Address: [address] [place] [address] Performed By: #### 3 084-1, 27304-28, 83574-6 #### [facility] CLIA [id number] [address] [place] [address] [place] Urea nitrogen [Mass/Vol] 28 mg/dL High 7-26 [facility] Comment on above: Order Comment: Specimen Type: BLOOD SPEC IMEN Ordering Facility: [facility] Address: [address] [place] [address] Performed By: #### 3 084-1, 27304-28, 90901-8 #### [facility] CLIA [id number] [address] [place] [address] [place] Magnesium SerPl-mCncon 08-20 Magnesium [Mass/Vol] 1.5 mg/dL Low 1.6-2.6 [facility] Comment on above: Order Comment: Specimen Type: BLOOD SPEC IMENOrdering Facility: [facility] Address: [address] [place] [address] Performed By: #### 2 777-1, 32469-5, 92718-3 ####[facility] [id number] [place] [address] [place] Phosphate SerPl-mCncon 08-20 Phosphate [Mass/Vol] 3.1 mg/dL Normal 2.5-4.9 [facility] Comment on above: Order Comment: Specimen Type: BLOOD SPEC IMENOrdering Facility: [facility] Address: [facility] [place] [id number] Result Comment: Elev ated m-protein (paraprotein) levels in the serum may be exhibited in patients with monoclonal gammopathies, causing falsely elevated inorganic phosphorus results. Performed By: #### 2 777-1, 73096-7, 82344-5 ####[facility] [id number] [place] [address] [facility] [place] THERAPY NTon 08-19-2024 THERAPY NT HNO ID: [id number] Author: FEDE STAHL, OTR/L Service: ? Author Type: Occupational Therapist Type: Therapy (PT/OT/Speech/Resp) Filed: 08/19/2024 13:07 Note Text: Occupational Therapy Evaluation Summary SERVICE DATE: 08/19/2024 SERVICE TIME: 0953 to 1035 ROOM: [place] [address] OT 6 Clicks Score: 15 DISCHARGE RECOMMENDATIONS Subacute/SNF Recommended Discharge Disposition Comments: Patient requiring increased assist for ADLs and functional mobility. Pt limited by cognitive deficits, pain and balance impairments Recommended Discharge Disposition Due to: Functional deficits requiring ongoing therapy service prior to discharge home., ADL impairment, Cognitive deficits new/worsened, Functional status decline, Motor planning deficits, Requires multiple therapy disciplines Anticipated Discharge Needs: Physical Assist at Home, Supervision at Home Physical Assist at Home for: Transfers, Finances, Ambulation, Cleaning, Laundry, Meals, Medication Management, Stairs, Safety, Self Care, Shopping, Transportation Supervision at Home due to: Impaired cognition, Decreased safety awareness Recommended Discharge Equipment: To Be Determined ASSESSMENT Response to Therapy Interventions: Cognitive Deficits, Pain, Requires Additional Time to Complete Activities, Needs Frequent Redirection or Reinstruction, Good Participation in Activities Pt tolerated OT session fairly. Limited by R knee and R foot pain, mod to max balance deficits, decreased activity tolerance, poor memory and cognitive deficits. Edu/trained pt in don of R surgical shoe and need to wear when OOB for all activity. Pt requires increased time and repeated cueing to remember and carry over education/trainining. Pt would benefit from continued OT services. PRECAUTIONS Fall Risk, Weight Bearing Restrictions, Bed/Chair Alarm R surgical shoe Right Lower Extremity Weight Bearing Status: WBAT (in surgical shoe) CURRENT HOSPITAL COURSE Admitted with mulitiple falls and general weakness. T12 compression fracture of indeterminate age. Xray R foot 08/17 shows Minimally impacted fractures of the second through the fourth metatarsals. Podiatry recommended WBAT in surgical shoe. Relevant Past Medical History: Chronic anxiety HOME LIVING Patient Lives With: Spouse Assistance Available: 24-Hour, Other: See Comment Comments: reports is also not in good physcial health Entry To Home: Stairs Number Of Stairs Into Home: 2 Number Of Stairs To Bed/Bath: 0 Tub/Shower Type: reports he sponge bathes only Laundry: reports hires help to complete Equipment Owned: Walker- Wheeled PRIOR FUNCTIONAL LEVEL Required Assistance, History of Falls, Poor Historian Assistance Required With: Finances, Cleaning, Laundry, Meals, Medication Management, Shopping, Transportation Patient reports Indep w/ mobility using fww and Indep w/ ADLs, sponge bathes only. Reports multiple recent falls. Reports trouble with his memory. Reports hiring help for groceries, cleaning, laundry and transport. Baseline Cognition: Oriented to self, Oriented to place, Forgetful SUBJECTIVE pt agreeable to OT eval COGNITION Orientation Deficits: Not oriented to Time, Not oriented to Situation Responsiveness: Awake Follows Commands: 2-step Commands, With Increased Time, With Repetition, Cueing Needed Cueing to Follow Commands: Moderate Attention Deficits: Distractible, Redirected with Cues Memory Deficits: Recall of Recent Events, Recall of Precautions, Recall of Medical/Personal History, Short Term Executive Function Deficits: Safety Awareness, Motor Planning, Problem Solving, Insight to Deficits, Judgement, Sequencing THERAPY DIAGNOSIS Decreased activities of daily living (ADL), Reduced mobility-other, Muscle Weakness (generalized) TREATMENT INTERVENTIONS Evaluation, Self Chcf Management (70665), Therapeutic Activity (59052) Timed Code Treatment (minutes): 25 Skilled Treatment Time (minutes): 40 TRAINING AND EDUCATION PROVIDED Activity Adaptation/Compensatory Strategies, Assistive Device Use, Bed Mobility, Benefits of In-Hospital Mobility, Cognitive Skills, Command Following, Discharge Planning, Edema Management, Energy Conservation, Expected Functional Level, Functional Mobility Involving ADLs, Lower Extremity Dressing, Memory/Attention, Insight into Deficits, Pain Management, Positioning, Precautions/Restrictions, Role of Occupational Therapy, Safety/Judgment, Sitting Balance to Improve [place] with ADLs/Self-Care, Standing Balance to Improve [place] with ADLs/Self-Care, Transfer - Bed to Chair, Transfer - Sit to Stand THERAPEUTIC SKILLS USED Activity Dosing, Assessment of Tolerance Including Vitals Response to Activity, Cues for Sequencing/Proper Technique for Activity, Cuing Tactile, Cuing Verbal, Cuing Visual, Mirroring, Movement Facilitation, Physical Assist, Repetitive Task Learning, Task Analysis Learning FUNCTIONAL ST (more content not included)... Normal [facility] THERAPY NT HNO ID: [id number] Author: FEDE STAHL OTR/Ge Service: ? Author Type: Occupational Therapist Type: Therapy (PT/OT/Speech/Resp) Filed: 08/19/2024 09:09 Note Text: OCCUPATIONAL THERAPY MISSED VISIT SERVICE DATE: 08/19/2024 SERVICE TIME: 0859 ROOM: [place] [address] Patient not seen due to (Attempted to see pt, but pt does not yet have R surgical shoe recommended by Podiatry. OT spoke with bricklayer apprentice who plans to call central supply to have ordered and sent up. OT will reattempt as able.). SIGNATURE: AYANA Perez/Ge PATIENT NAME: Samia Rivera DATE: August 19, 2024 TIME: 9:09 AM [facility] CBC panel Auto (Bld)on 08-18 Erythrocyte distribution width (RBC) [Ratio] 13.7 % Normal 11.5-15.0 [facility] Comment on above: Order Comment: Specimen Type: BLOOD SPEC IMEN Ordering Facility: [facility] Address: [address] [place] [address] Performed By: #### 3 084-1, 5218-, 68226-9 #### [facility] CLIA [id number] [address] [place] [address] [place] Hematocrit (Bld) [Volume fraction] 33.8 % Low 39.0-51.0 [facility] Comment on above: Order Comment: Specimen Type: BLOOD SPEC IMEN Ordering Facility: [facility] Address: [address] [place] [address] Performed By: #### 3 084-1, 3125-3, 69175-8 #### [facility] CLIA [id number] [address] [place] [address] [place] Hemoglobin (Bld) [Mass/Vol] 11.3 g/dL Low 13.0-17.0 [facility] Comment on above: Order Comment: Specimen Type: BLOOD SPEC IMEN Ordering Facility: [facility] Address: [address] [place] [address] Performed By: #### 3 084-1, 2730-11, #### [facility] CLIA [id number] [address] [place] [address] [place] MCH (RBC) [Entitic mass] 32.1 pg Normal 26.0-34.0 [facility] Comment on above: Order Comment: Specimen Type: BLOOD SPEC IMEN Ordering Facility: [facility] Address: [address] [place] [address] Performed By: #### 3 084-1, 2730-11, #### [facility] CLIA [id number] [address] [place] [address] [place] MCHC (RBC) [Mass/Vol] 33.4 g/dL Normal 30.5-36.0 [facility] Comment on above: Order Comment: Specimen Type: BLOOD SPEC IMEN Ordering Facility: [facility] Address: [address] [place] [address] Performed By: #### 3 084-1, 2730-11, #### [facility] CLIA [id number] [address] [place] [address] [place] MCV (RBC) [Entitic vol] 96.0 fL Normal 80.0-100.0 [facility] Comment on above: Order Comment: Specimen Type: BLOOD SPEC IMEN Ordering Facility: [facility] Address: [address] [place] [address] Performed By: #### 3 084-1, 2730-11, #### [facility] CLIA [id number] [address] [place] [address] [place] Nucleated RBC (Bld) [#/Vol] 10*3/uL Normal <0.01 [facility] Comment on above: Order Comment: Specimen Type: BLOOD SPEC IMEN Ordering Facility: [facility] Address: [address] [place] [address] Performed By: #### 3 084-1, 27304-28, 03228-7 #### [facility] CLIA [id number] [address] [place] [address] [place] Platelet mean volume (Bld) [Entitic vol] 9.1 fL Normal 9.0-12.7 [facility] Comment on above: Order Comment: Specimen Type: BLOOD SPEC IMEN Ordering Facility: [facility] Address: [address] [place] [address] Performed By: #### 3 084-1, 27304-28, 27579-4 #### [facility] CLIA [id number] [address] [place] [address] [place] Platelets (Bld) [#/Vol] 143 10*3/uL Low 150-400 [facility] Comment on above: Order Comment: Specimen Type: BLOOD SPEC IMEN Ordering Facility: [facility] Address: [address] [place] [address] Performed By: #### 3 084-1, 27304-28, #### [facility] CLIA [id number] [address] [place] [address] [place] RBC (Bld) [#/Vol] 3.52 10*6/uL Low 4.20-6.00 [facility] Comment on above: Order Comment: Specimen Type: BLOOD SPEC IMEN Ordering Facility: [facility] Address: [address] [place] [address] Performed By: #### 3 084-1, 27304-28, #### [facility] CLIA [id number] [address] [place] [address] [place] WBC (Bld) [#/Vol] 5.15 10*3/uL Normal 3.70-11.00 [facility] Comment on above: Order Comment: Specimen Type: BLOOD SPEC IMEN Ordering Facility: [facility] Address: [address] [place] [address] Performed By: #### 3 084-1, 2731-8, 53070-5 #### [facility] CLIA [id number] [address] [place], [place] [address] [facility] [place] CONSULTon 08-18-2024 CONSULT HNO ID: [id number] Author: NICKO JARRETT III, DPM Service: Podiatry Author Type: Physician Type: Consults Filed: 08/18/2024 17:38 Note Text: PODIATRIC INITIAL CONSULT Patient Name: Samia Rivera Account #: Data Unavailable Admission Date: 08/16/2024 Date of Evaluation: 08/18/2024 Time of Evaluation: 5:34 PM HISTORY OF PRESENT ILLNESS: This is a pleasant 83 year old male with past medical history significant for anxiety, back pain, chronic renal insufficiency, GERD, hypertension, sinus sick syndrome, vertigo, pacemaker, dementia, BPH, depression who presented to the hospital 2 days ago secondary to fall and generalized weakness. Patient was found to have a right foot metatarsal fracture for which podiatry is consulted. Patient relates pain as well as localized swelling to the right foot. Denies any open wounds. PAST MEDICAL HISTORY Diagnosis Date Chronic anxiety Chronic back pain Chronic pruritus Chronic renal insufficiency, stage III (moderate) (HCC) Gait instability GERD (gastroesophageal reflux disease) HTN (hypertension) Memory loss Neurodermatitis Presence of cardiac pacemaker 11/06/2020 [place] Situational depression SSS (sick sinus syndrome) (HCC) Vertigo PAST SURGICAL HISTORY Procedure Laterality Date (NEW IMPLANT DUAL CHAMBER PPM) INSERTION OF A NEW PERMANENT PACEMAKER W/ INSERTION OF NEW TRANSVENOUS ELECTRODE(S) ATRIAL AND VENTRICULAR Right 11/06/2020 [facility] ARTHROPLASTY HEMIARTHROPLASTY Right 08/01/2019 CHOLECYSTECTOMY 1983 CYST/MOLE REMOVAL 2018 on tailbone LAPAROSCOPY, ORCHIOPEXY 1966 PERCUTANEOUS LUMBAR DISKECTOMY 1990 SEPTOPLASTY 1985 TONSILLECTOMY AND ADENOIDECTOMY AGE 10/> 1971 Current Facility-Administered Medications Medication Dose Route Frequency heparin 5,000 Units injection 5,000 Units SUBCUTANEOUS q 12 H NaCl 0.9% iv flush bag 20 mL INTRAVENOUS PRN aluminum-magnesium hydroxide-simethicone 200-200-20 mg/5 mL 30 mL 30 mL ORAL DAILY PRN ondansetron 4 mg tab(s) (ZOFRAN) 4 mg ORAL q 6 H PRN Or ondansetron (PF) 4 mg injection (ZOFRAN) 4 mg INTRAVENOUS q 6 H PRN polyethylene glycol 3350 17 g packet 17 g ORAL DAILY PRN acetaminophen 650 mg tab(s) (TYLENOL) 650 mg ORAL q 6 H PRN HYDROcodone 5 mg - acetaminophen 325 mg tablet (NORCO) 1 tablet ORAL q [address] 40 mg tab(s) (PROTONIX) 40 mg ORAL DAILY (6 AM) miconazole 2 % 1 application topical powder 1 application TOPICAL BID Allergies: ALLERGIES Allergen Reactions Meperidine GI Upset, Unknown Oxycodone Mental Status Change FAMILY HISTORY Family history unknown: Yes Social History Tobacco Use Smoking status: Never Passive exposure: Never Smokeless tobacco: Never Vaping Use Vaping status: Never Used Substance Use Topics Alcohol use: Not Currently Drug use: Never REVIEW OF SYSTEMS: Endorses right foot pain. Denies fevers chills nausea vomiting chest pain shortness of breath calf or thigh pain. RADIOGRAPHS: X-rays show isolated metatarsal neck fractures of metatarsals 2 3 and 4. Generalized osteopenia appreciated. Joint spaces are otherwise intact. Osteoarthritic changes noted. OTHER STUDIES: None LABS: CBC: WBC 5.15 08/18/2024 Hemoglobin 11.3 08/18/2024 Hematocrit 33.8 08/18/2024 Platelet Count 143 08/18/2024 CMP: Sodium 135 08/18/2024 Potassium 4.2 08/18/2024 BUN 26 08/18/2024 Creatinine 1.50 08/18/2024 Glucose 101 08/18/2024 COAGS: INR 1.05 08/12/2019 URINALYSIS: Ketones, Urine Trace 08/16/2024 Nitrites Urine Negative 08/16/2024 Specific [place], Ur 1.014 08/16/2024 Protein, Urine Negative 08/16/2024 LEUKOCYTE ESTERASE Trace 08/16/2024 WBC, Urine 6-10 /HPF 08/16/2024 Bacteria None Seen 08/16/2024 SED RATE/CRP: Sed Rate, Westergren 33 08/17/2024 PHYSICAL EXAM: BP 127/67 Pulse 60 Temp (Src) 97.6 (Oral) Resp 22 Ht 6' 4 (1.93m) Wt 186 lb 15.2 oz (84.8kg) SpO2 100% BMI 22.77 kg/(m2). O2 Therapy: Room Air General: Appears stated age, well built, in no apparent distress. Psychiatric: Mood and affect: Appropriate. Alert and oriented x THREE. DP and PT pulses are reduced, CFT within normal limits, skin temperature warm to warm proximal to distal. No dysvascular changes. Mild edema to the right foot. Muscle strength is intact though reduced for dorsiflexion plantarflexion inversion eversion of the foot and ankle. Range of motion is intact from the ankle joint distal without pain. Light touch sensation is intact. No gross motor deficits. Localized swelling noted to the dorsal aspect of the right foot. There are some tenderness with palpation to the metatarsals distally of 2 3 and 4. No fracture blisters. Skin integrity is intact. Compartments are soft and compressible. IMPRESSION: Fall Dementia Metatarsal neck fractures of the 2 3 and 4 right foot PLAN: This is a 83-year-old female who sustained metatarsal neck fractures of metatarsals 2 3 and 4 that are minimally disp (more content not included)... Normal [facility] Comprehensive metabolic 2000 panelon 08-18-2024 Albumin [Mass/Vol] 3.2 g/dL Normal 3.2-5.0 [facility] Comment on above: Order Comment: Specimen Type: BLOOD SPEC IMEN Ordering Facility: [facility] Address: [address] [place] [address] Performed By: #### 3 084-1, 9354-8, 99818-7 #### [facility] CLIA [id number] [address] [place] [address] [place] ALP [Catalytic activity/Vol] 80 U/L Normal 45-117 [facility] Comment on above: Order Comment: Specimen Type: BLOOD SPEC IMEN Ordering Facility: [facility] Address: [address] [place] [address] Performed By: #### 3 084-1, 1814-8, 91236-4 #### [facility] CLIA [id number] [address] [place] [address] [place] ALT [Catalytic activity/Vol] 19 U/L Normal 13-61 [facility] Comment on above: Order Comment: Specimen Type: BLOOD SPEC IMEN Ordering Facility: [facility] Address: [address] [place] [address] Result Comment: Resu lts may be falsely depressed after the administration of Sulfasalazine and/or Sulfapyridine. Performed By: #### 3 084-1, 2730-11, #### [facility] CLIA [id number] [address] [place] [address] [place] Anion gap [Moles/Vol] 9 mmol/L Normal 5-16 [facility] Comment on above: Order Comment: Specimen Type: BLOOD SPEC IMEN Ordering Facility: [facility] Address: [address] [place] [address] Performed By: #### 3 084-1, 2730-11, #### [facility] CLIA [id number] [address] [place] [address] [place] AST [Catalytic activity/Vol] 40 U/L High 8-34 [facility] Comment on above: Order Comment: Specimen Type: BLOOD SPEC IMEN Ordering Facility: [facility] Address: [address] [place] [address] Result Comment: Resu lts may be falsely depressed after the administration of Sulfasalazine and/or Sulfapyridine. Performed By: #### 3 084-1, 2730-11, #### [facility] CLIA [id number] [address] [place] [address] [place] Bilirubin [Mass/Vol] 0.6 mg/dL Normal 0.2-1.0 [facility] Comment on above: Order Comment: Specimen Type: BLOOD SPEC IMEN Ordering Facility: [facility] Address: [address] [place] [address] Performed By: #### 3 084-1, 2730-11, #### [facility] CLIA [id number] [address] [place] [address] [place] Calcium [Mass/Vol] 9.3 mg/dL Normal 8.5-10.5 [facility] Comment on above: Order Comment: Specimen Type: BLOOD SPEC IMEN Ordering Facility: [facility] Address: [address] [place] [address] Performed By: #### 3 084-1, 2730-11, #### [facility] CLIA [id number] [address] [place] [address] [place] Chloride [Moles/Vol] 104 mmol/L Normal 98-107 [facility] Comment on above: Order Comment: Specimen Type: BLOOD SPEC IMEN Ordering Facility: [facility] Address: [address] [place] [address] Performed By: #### 3 084-1, 2730-11, #### [facility] CLIA [id number] [address] [place] [address] [place] CO2 [Moles/Vol] 22 mmol/L Normal 21-32 [facility] Comment on above: Order Comment: Specimen Type: BLOOD SPEC IMEN Ordering Facility: [facility] Address: [address] [place] [address] Performed By: #### 3 084-1, 2730-11, #### [facility] CLIA [id number] [address] [place] [address] [place] Creatinine [Mass/Vol] 1.50 mg/dL High 0.50-1.40 [facility] Comment on above: Order Comment: Specimen Type: BLOOD SPEC IMEN Ordering Facility: [facility] Address: [address] [place] [address] Result Comment: Cecy ents receiving either N-Acetylcysteine (NAC) or Metamizole prior to venipuncture, may have falsely depressed results. Performed By: #### 3 084-1, 27304-28, #### [facility] CLIA [id number] [address] [place] [address] [place] Creatinine and Glomerular filtration rate.predicted panel (S/P/Bld) 45 mL/min/1.73m??? Low >=60 [facility] Comment on above: Order Comment: Specimen Type: BLOOD SPEC IMEN Ordering Facility: [facility] Address: [address] [place] [address] Result Comment: Promise mated Glomerular Filtration Rate (eGFR) is calculated using the 2020 CKD-EPI creatinine equation. This equation utilizes serum creatinine, sex, and age as parameters. The creatinine assay has traceable calibration to isotope dilution-mass spectrometry. Refer to KDIGO guidelines for clinical interpretation. In patients with unstable renal function, e.g. those with acute kidney injury, the eGFR may not accurately reflect actual GFR. Performed By: #### 3 084-1, 2731-8, 20333-5 #### [facility] CLIA [id number] [address] [place] [address] [place] Glucose [Mass/Vol] 101 mg/dL High 70-100 [facility] Comment on above: Order Comment: Specimen Type: BLOOD SPEC IMEN Ordering Facility: [facility] Address: [address] [place] [address] Result Comment: The [place] [employer] (ADA) provides guidance for cutoff values for fasting glucose and random glucose. The ADA defines fasting as no caloric intake for at least 8 hours. Fasting plasma glucose results between 100 to 125 mg/dL indicate increased risk for diabetes (prediabetes). Fasting plasma glucose results greater than or equal to 126 mg/dL meet the criteria for diagnosis of diabetes. In the absence of unequivocal hyperglycemia, results should be confirmed by repeat testing. In a patient with classic symptoms of hyperglycemia or hyperglycemic crisis, random plasma glucose results greater than or equal to 200 mg/dL meet the criteria for diagnosis of diabetes. Reference: Standards of Medical Care in Diabetes 2016, [place] [employer]. Diabetes Care. 2016.39(Suppl 1). Results may be falsely elevated after the administration of Sulfapyridine. Results may be falsely depressed after the administration of Sulfasalazine. Performed By: #### 3 084-1, 2731-8, 36742-3 #### [facility] CLIA [id number] [address] [place], [place] [address] [place] Potassium [Moles/Vol] 4.2 mmol/L Normal 3.5-5.1 [facility] Comment on above: Order Comment: Specimen Type: BLOOD SPEC IMEN Ordering Facility: [facility] Address: [address] [place] [address] Performed By: #### 3 084-1, 2730-11, #### [facility] CLIA [id number] [address] [place] [address] [place] Protein [Mass/Vol] 6.4 g/dL Normal 6.0-8.5 [facility] Comment on above: Order Comment: Specimen Type: BLOOD SPEC IMEN Ordering Facility: [facility] Address: [address] [place] [address] Performed By: #### 3 084-1, 2730-11, #### [facility] CLIA [id number] [address] [place] [address] [place] Sodium [Moles/Vol] 135 mmol/L Low 136-145 [facility] Comment on above: Order Comment: Specimen Type: BLOOD SPEC IMEN Ordering Facility: [facility] Address: [address] [place] [address] Performed By: #### 3 084-1, 2730-11, #### [facility] CLIA [id number] [address] [place] [address] [place] Urea nitrogen [Mass/Vol] 26 mg/dL Normal 7-26 [facility] Comment on above: Order Comment: Specimen Type: BLOOD SPEC IMEN Ordering Facility: [facility] Address: [address] [place] [address] Performed By: #### 3 084-1, 2730-11, #### [facility] CLIA [id number] [address] [place] [address] [place] Magnesium SerPl-mCncon 08-18 Magnesium [Mass/Vol] 1.7 mg/dL Normal 1.6-2.6 [facility] Comment on above: Order Comment: Specimen Type: BLOOD SPEC IMEN Ordering Facility: [facility] Address: [address] [place] [address] Performed By: #### 3 084-1, 2731-8, 76166-8 #### [facility] CLIA [id number] [address] [place], [place] [address] [facility] Phosphate SerPl-mCncon 08-18 Phosphate [Mass/Vol] 2.4 mg/dL Low 2.5-4.9 [facility] Comment on above: Order Comment: Specimen Type: BLOOD SPEC IMEN Ordering Facility: [facility] Address: [address] [place] [address] Result Comment: Elev ated m-protein (paraprotein) levels in the serum may be exhibited in patients with monoclonal gammopathies, causing falsely elevated inorganic phosphorus results. Performed By: #### 3 084-1, 2731-8, 85580-6 #### [facility] CLIA [id number] [address] [place] [address] THERAPY NTon 08-18-2024 THERAPY NT HNO ID: [id number] Author: FEDE STAHL OTR/Ge Service: ? Author Type: Occupational Therapist Type: Therapy (PT/OT/Speech/Resp) Filed: 08/18/2024 09:50 Note Text: OCCUPATIONAL THERAPY MISSED VISIT SERVICE DATE: 08/18/2024 SERVICE TIME: 939 ROOM: [place] [address] Patient not seen due to Clinical Appropriateness (OT will hold and await POC/weight bearing recommendations as new Xray of Right foot showing Minimally impacted fractures of the second through the fourth metatarsals.). SIGNATURE: AYANA Perez/Ge PATIENT NAME: Samia Rivera DATE: August 18, 2024 TIME: 9:49 AM Normal [facility] US LEG VEIN DVT [facility] LABo n 08-18-2024 US LEG VEIN DVT [facility] Non-Invasive Vascular Laboratory [facility] Lower Extremity Venous Duplex Bilateral/Complete Date of service/time: 08/18/2024 7:18:28 AM Name: SAMIA RIVERA Date of : 1940 Age: 83 years Gender: M Clinical Indication Bilateral leg swelling. TECHNIQUE -------- A venous duplex ultrasound examination was performed, including grayscale imaging with compression maneuvers and color Doppler and spectral Doppler examination with augmentation maneuvers and response to respiration of the below mentioned veins. FINDINGS -------- RIGHT SIDE Distal external iliac vein Doppler: normal flow. Compression: normal. Common femoral vein Doppler: normal flow. Compression: normal. Femoral vein Doppler: normal flow. Compression: normal. Popliteal vein Doppler: normal flow. Compression: normal. Posterior tibial veins Compression: normal. Peroneal veins Compression: normal. Great saphenous vein Compression: normal. Small saphenous vein Compression: normal. Soleal vein Compression: normal. Gastrocnemius vein Compression: normal. Profunda vein Doppler: normal flow. Compression: normal. LEFT SIDE Distal external iliac vein Doppler: normal flow. Compression: normal. Common femoral vein Doppler: normal flow. Compression: normal. Femoral vein Doppler: normal flow. Compression: normal. Popliteal vein Doppler: normal flow. Compression: normal. Posterior tibial veins Compression: normal. Peroneal veins Compression: normal. Great saphenous vein Compression: normal. Small saphenous vein Compression: abnormal. Soleal vein Compression: normal. Gastrocnemius vein Compression: normal. Profunda vein Doppler: normal flow. Compression: normal. IMPRESSION RIGHT SIDE - DEEP VEINS Negative for acute deep vein thrombosis. RIGHT SIDE - SUPERFICIAL VEINS Negative for superficial thrombophlebitis in the great saphenous vein and small saphenous vein. LEFT SIDE - DEEP VEINS Negative for acute deep vein thrombosis. LEFT SIDE - SUPERFICIAL VEINS Negative for superficial thrombophlebitis in the great saphenous vein. 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 Technologist: Curtis Salinas Ordering physician: UMANG WOOD Interpreting physician: Mark Jordan MD Final CC [employer] Image : [id number] SUID See Link below for Image Normal [facility] ALLIED HEALTHon 08-17-2024 ALLIED HEALTH HNO ID: [id number] Author: EDILSON OGLESBY RT(R) Service: Radiology Author Type: Technologist Type: Allied Health Filed: 08/17/2024 13:31 Note Text: Radiology Service Progress Note PATIENT NAME: Samia Rivera DATE OF SERVICE: August 17, 2024 TIME: 1:30 PM PATIENT IDENTITY VERIFICATION COMPLETED USING TWO (2) IDENTIFIERS: Name and Date of confirmed by identification band. FALL SCREENING: Has the patient had 2 falls in the last year or 1 fall with injury or currently using an Ambulatory Assistive Device (Walker, Cane, Wheelchair, Crutches, etc.)? Inpatient: Screened on floor PATIENT GENDER DATA: Assigned male at PATIENT RELEVANT IMPLANT DATA REVIEWED: Not Applicable PATIENT PRESENTS WITH AN IMPLANTABLE OR ATTACHED AIRPORT MAINTENANCE LABORER: No RADIOLOGY DEPARTMENT: General X-ray: Exam(s) Completed: Lower Extremity X-Ray(s): Foot, Right PERIPHERAL IV DATA: Not applicable SIGNED BY: RT Adrianne(R) August 17, 2024 1:30 PM Normal [facility] Basic metabolic 2000 panelon 08-17-2024 Anion gap [Moles/Vol] 7 mmol/L Normal 5-16 [facility] Comment on above: Order Comment: Specimen Type: BLOOD SPEC IMEN Ordering Facility: [facility] Address: [address] [place] [address] Performed By: #### 3 084-1, 2167-, 98952-8 #### [facility] CLIA [id number] [address] [place], [place] [address] [address] [place] Calcium [Mass/Vol] 9.5 mg/dL Normal 8.5-10.5 [facility] Comment on above: Order Comment: Specimen Type: BLOOD SPEC IMEN Ordering Facility: [facility] Address: [address] [place] [address] Performed By: #### 3 084-1, 7117-, 47282-1 #### [facility] CLIA [id number] [facility] [place] [address] [place] Chloride [Moles/Vol] 107 mmol/L Normal 98-107 [facility] Comment on above: Order Comment: Specimen Type: BLOOD SPEC IMEN Ordering Facility: [facility] Address: [address] [place] [address] Performed By: #### 3 084-1, 27304-28, 86491-4 #### [facility] CLIA [id number] [address] [place] [address] [place] CO2 [Moles/Vol] 23 mmol/L Normal 21-32 [facility] Comment on above: Order Comment: Specimen Type: BLOOD SPEC IMEN Ordering Facility: [facility] Address: [address] [place] [address] Performed By: #### 3 084-1, 2730-11, #### [facility] CLIA [id number] [address] [place] [address] [place] Creatinine [Mass/Vol] 1.62 mg/dL High 0.50-1.40 [facility] Comment on above: Order Comment: Specimen Type: BLOOD SPEC IMEN Ordering Facility: [facility] Address: [address] [place] [address] Result Comment: Cecy ents receiving either N-Acetylcysteine (NAC) or Metamizole prior to venipuncture, may have falsely depressed results. Performed By: #### 3 084-1, 27304-28, 12293-8 #### [facility] CLIA [id number] [address] [place] [address] [place] Creatinine and Glomerular filtration rate.predicted panel (S/P/Bld) 41 mL/min/1.73m??? Low >=60 [facility] Comment on above: Order Comment: Specimen Type: BLOOD SPEC IMEN Ordering Facility: [facility] Address: [address] [place] [address] Result Comment: Promise mated Glomerular Filtration Rate (eGFR) is calculated using the 2020 CKD-EPI creatinine equation. This equation utilizes serum creatinine, sex, and age as parameters. The creatinine assay has traceable calibration to isotope dilution-mass spectrometry. Refer to KDIGO guidelines for clinical interpretation. In patients with unstable renal function, e.g. those with acute kidney injury, the eGFR may not accurately reflect actual GFR. Performed By: #### 3 084-1, 273-8, 09578-6 #### [facility] CLIA [id number] [address] [place] [address] [place] Glucose [Mass/Vol] 91 mg/dL Normal 70-100 [facility] Comment on above: Order Comment: Specimen Type: BLOOD SPEC IMEN Ordering Facility: [facility] Address: [address] [place] [address] Result Comment: The [place] [employer] (ADA) provides guidance for cutoff values for fasting glucose and random glucose. The ADA defines fasting as no caloric intake for at least 8 hours. Fasting plasma glucose results between 100 to 125 mg/dL indicate increased risk for diabetes (prediabetes). Fasting plasma glucose results greater than or equal to 126 mg/dL meet the criteria for diagnosis of diabetes. In the absence of unequivocal hyperglycemia, results should be confirmed by repeat testing. In a patient with classic symptoms of hyperglycemia or hyperglycemic crisis, random plasma glucose results greater than or equal to 200 mg/dL meet the criteria for diagnosis of diabetes. Reference: Standards of Medical Care in Diabetes 2016, [place] [employer]. Diabetes Care. 2016.39(Suppl 1). Results may be falsely elevated after the administration of Sulfapyridine. Results may be falsely depressed after the administration of Sulfasalazine. Performed By: #### 3 084-1, 2738, 13146-4 #### [facility] CLIA [id number] [address] [place] [address] [place] Potassium [Moles/Vol] 4.3 mmol/L Normal 3.5-5.1 [facility] Comment on above: Order Comment: Specimen Type: BLOOD SPEC IMEN Ordering Facility: [facility] Address: [address] [place] [address] Performed By: #### 3 084-1, 273-8, 66831-0 #### [facility] CLIA [id number] [address] [place] [address] [place] Sodium [Moles/Vol] 137 mmol/L Normal 136-145 [facility] Comment on above: Order Comment: Specimen Type: BLOOD SPEC IMEN Ordering Facility: [facility] Address: [address] [place] [address] Performed By: #### 3 084-1, 2730-11, #### [facility] CLIA [id number] [address] [place] [address] [place] Urea nitrogen [Mass/Vol] 32 mg/dL High 11-13 [facility] Comment on above: Order Comment: Specimen Type: BLOOD SPEC IMEN Ordering Facility: [facility] Address: [address] [place] [address] Performed By: #### 3 084-1, 2730-11, #### [facility] CLIA [id number] [address] [place] [address] [place] CBC panel Auto (Bld)on 08-17 Erythrocyte distribution width (RBC) [Ratio] 13.8 % Normal 11.5-15.0 [facility] Comment on above: Order Comment: Specimen Type: BLOOD SPEC IMEN Ordering Facility: [facility] Address: [address] [place] [address] Performed By: #### 3 084-1, 2730-11, #### [facility] CLIA [id number] [address] [place] [address] [place] Hematocrit (Bld) [Volume fraction] 31.6 % Low 39.0-51.0 [facility] Comment on above: Order Comment: Specimen Type: BLOOD SPEC IMEN Ordering Facility: [facility] Address: [address] [place] [address] Performed By: #### 3 084-1, 2730-11, #### [facility] CLIA [id number] [address] [place], [place] [address] [place] Hemoglobin (Bld) [Mass/Vol] 10.6 g/dL Low 13.0-17.0 [facility] Comment on above: Order Comment: Specimen Type: BLOOD SPEC IMEN Ordering Facility: [facility] Address: [address] [place] [address] Performed By: #### 3 084-1, 2730-11, #### [facility] CLIA [id number] [address] [place] [address] [place] MCH (RBC) [Entitic mass] 32.2 pg Normal 26.0-34.0 [facility] Comment on above: Order Comment: Specimen Type: BLOOD SPEC IMEN Ordering Facility: [facility] Address: [address] [place] [address] Performed By: #### 3 084-1, 2730-11, #### [facility] CLIA [id number] [address] [place] [address] [place] MCHC (RBC) [Mass/Vol] 33.5 g/dL Normal 30.5-36.0 [facility] Comment on above: Order Comment: Specimen Type: BLOOD SPEC IMEN Ordering Facility: [facility] Address: [address] [place] [address] Performed By: #### 3 084-1, 2730-11, #### [facility] CLIA [id number] [address] [place] [address] [place] MCV (RBC) [Entitic vol] 96.0 fL Normal 80.0-100.0 [facility] Comment on above: Order Comment: Specimen Type: BLOOD SPEC IMEN Ordering Facility: [facility] Address: [address] [place] [address] Performed By: #### 3 084-1, 2730-11, #### [facility] CLIA [id number] [address] [place] [address] [place] Nucleated RBC (Bld) [#/Vol] 10*3/uL Normal <0.01 [facility] Comment on above: Order Comment: Specimen Type: BLOOD SPEC IMEN Ordering Facility: [facility] Address: [address] [place], [place] [address] Performed By: #### 3 084-1, 27304-28, 73624-7 #### [facility] CLIA [id number] [address] [place] [address] [place] Platelet mean volume (Bld) [Entitic vol] 9.4 fL Normal 9.0-12.7 [facility] Comment on above: Order Comment: Specimen Type: BLOOD SPEC IMEN Ordering Facility: [facility] Address: [address] [place] [address] Performed By: #### 3 084-1, 27304-28, 55648-1 #### [facility] CLIA [id number] [address] [place] [address] [place] Platelets (Bld) [#/Vol] 126 10*3/uL Low 150-400 [facility] Comment on above: Order Comment: Specimen Type: BLOOD SPEC IMEN Ordering Facility: [facility] Address: [address] [place] [address] Performed By: #### 3 084-1, 2730-11, 14854-8 #### [facility] CLIA [id number] [address] [place] [address] [place] RBC (Bld) [#/Vol] 3.29 10*6/uL Low 4.20-6.00 [facility] Comment on above: Order Comment: Specimen Type: BLOOD SPEC IMEN Ordering Facility: [facility] Address: [address] [place] [address] Performed By: #### 3 084-1, 2730-11, 09564-0 #### [facility] CLIA [id number] [address] [place] [address] [place] WBC (Bld) [#/Vol] 6.32 10*3/uL Normal 3.70-11.00 [facility] Comment on above: Order Comment: Specimen Type: BLOOD SPEC IMEN Ordering Facility: [facility] Address: [address] [place] [address] Performed By: #### 3 084-1, 2730-8, 71114-6 #### [facility] CLIA [id number] [address] [place] [address] [place] D dimer FEU PPP-mCncon 08-17 Fibrin D-dimer FEU (PPP) [Mass/Vol] 23831 ng/mL FEU High <500 [facility] Comment on above: Order Comment: Specimen Type: BLOOD SPEC IMEN Ordering Facility: [facility] Address: [address] [place] [address] Performed By: #### 3 084-1, 2738, #### [facility] CLIA [id number] [address] [place] [address] [place] ESR Westergren method (Bld) [Velocity]on 08-17-2024 ESR (Bld) [Velocity] 33 mm/h High 0-20 [facility] Comment on above: Order Comment: Specimen Type: BLOOD SPEC IMEN Ordering Facility: [facility] Address: [address] [place] [address] Performed By: #### 3 084-1, 2738, #### [facility] CLIA [id number] [address] [place] [address] [place] Fibrin D-dimer FEU (PPP) [Ma ss/Vol]on 08-17-2024 D DIMER AGE-RELATED CUTOFF 850 ng/mL FEU Normal [facility] Comment on above: Order Comment: Specimen Type: BLOOD SPEC IMEN Ordering Facility: [facility] Address: [address] [place] [address] Performed By: #### 3 084-1, 273-8, 34403-5 #### [facility] CLIA [id number] [address] [place] [address] [place] HIGH SENSITIVITY TROPONIN Io n 08-17-2024 Tropinin I.cardiac panel High sensitivity method 17.7 pg/mL Normal 0.0-54.0 [facility] Comment on above: Order Comment: Specimen Type: BLOOD SPEC IMEN Ordering Facility: [facility] Address: [address] [place] [address] Performed By: #### 3 084-1, 2731-8, 80909-1 #### [facility] CLIA [id number] [address] [place] [address] [place] Tropinin I.cardiac panel High sensitivity method 20.9 pg/mL Normal 0.0-54.0 [facility] Comment on above: Order Comment: Specimen Type: BLOOD SPEC IMEN Ordering Facility: [facility] Address: [address] [place] [address] Performed By: #### 3 084-1, 2731-8, 58845-2 #### [facility] CLIA [id number] [address] [place] [address] [place] Tropinin I.cardiac panel High sensitivity method 24.1 pg/mL Normal 0.0-54.0 [facility] Comment on above: Order Comment: Specimen Type: BLOOD SPEC IMEN Ordering Facility: [facility] Address: [address] [place] [address] Performed By: #### 1 989-3 #### [facility] CLIA [id number] [address] [place] [address] [place] NM LUNG VENT / PERF VQon NM LUNG VENT / PERF VQ * * *Final Report* * * DATE OF EXAM: Aug 17 2024 3:13PM RHN [id number] - NM LUNG VENT / PERF VQ / PROCEDURE REASON: Secondary pulmonary hypertension * * * * Physician Interpretation * * * * LUNG SCAN CLINICAL HISTORY: Assess for pulmonary embolism. Pulmonary hypertension. TECHNIQUE: 0.8 mCi Tc 99m DTPA aerosol inhaled 5.9 mCi Tc 99m MAA IV RESULTS: Ventilation Images: Slightly heterogeneous tracer distribution in the bilateral lung, central airway tracer deposition. Perfusion Images: Slightly heterogeneous tracer distribution in the bilateral lung. Mismatched perfusion defects: none. IMPRESSION: THE STUDY IS MOST CONSISTENT WITH A LOW PROBABILITY OF PULMONARY EMBOLISM. Critical Power Technician: RUBIO Transcribe Date/Time: Aug 17 2024 3:20P Dictated by : NAZIA HARRINGTON MD This examination was interpreted and the report reviewed and electronically signed by: NAZIA HARRINGTON MD on Aug 17 2024 3:23PM EST [id number] [facility] THERAPY NTon 08-17-2024 THERAPY NT HNO ID: [id number] Author: FEDE STAHL OTR/L Service: ? Author Type: Occupational Therapist Type: Therapy (PT/OT/Speech/Resp) Filed: 08/17/2024 10:35 Note Text: OCCUPATIONAL THERAPY MISSED VISIT SERVICE DATE: 08/17/2024 SERVICE TIME: 1034 ROOM: [place] [address] Patient not seen due to Clinical Appropriateness (Patient with pain in R foot when working with PT. Dr. Wood ordered foot xray and ultrasound LEs. OT will hold until testing is completed and recommendations are made.). SIGNATURE: AYANA Perez/Ge PATIENT NAME: Samia Rivera DATE: August 17, 2024 TIME: 10:35 AM [facility] THERAPY NT HNO ID: [id number] Author: OPHELIA PERDUE PT Service: Physical Therapy Author Type: Physical Therapist Type: Therapy (PT/OT/Speech/Resp) Filed: 08/17/2024 09:27 Note Text: Physical Therapy Evaluation Summary SERVICE DATE: 08/17/2024 SERVICE TIME: 840 to 904 ROOM: [place] [address] PT 6 Clicks Score: 13 DISCHARGE RECOMMENDATIONS Subacute/SNF Recommended Discharge Disposition Due to: Functional deficits requiring ongoing therapy service prior to discharge home., Functional status decline Anticipated Discharge Needs: Undetermined ASSESSMENT Response to Therapy Interventions: Limited Participation, Low Activity Tolerance, Pain, Requires Encouragement to Complete Activities, Requires Additional Time to Complete Activities Patient is limited by weakness, lack of activity and pain. Recommend continued acute therapy and more therapy at SNF at medical discharge. He is not safe to return home at this time given multiple falls caused this admission. PRECAUTIONS Fall Risk CURRENT HOSPITAL COURSE Admitted with mulitiple falls and general weakness. T12 compression fracture of indeterminate age. Relevant Past Medical History: Chronic anxiety HOME LIVING Patient Lives With: Spouse Assistance Available: 24-Hour Entry To Home: Stairs Number Of Stairs Into Home: 2 Equipment Owned: Walker- Wheeled PRIOR FUNCTIONAL LEVEL Required Assistance Assistance Required With: Finances, Cleaning, Laundry, Meals Per patient he was ambulating with ww and didn't need assistance. He was unable to tell me how he was falling. SUBJECTIVE Patient is a poor historian. Cannot be specific regarding home situation and unsure of the accuracy of his answers. He is complaining of right foot pain - has trouble putting it on the floor. Nurse, Marge, notified of same. THERAPY DIAGNOSIS Reduced mobility-other, Unsteadiness on feet TREATMENT INTERVENTIONS Evaluation, Therapeutic Activity (16833) Timed Code Treatment (minutes): 9 Skilled Treatment Time (minutes): 24 TRAINING AND EDUCATION PROVIDED Bed Mobility, Falls Prevention, Home Safety, Role of Physical Therapy, Standing Balance, Transfers THERAPEUTIC SKILLS USED Activity Dosing, Cues for Sequencing/Proper Technique for Activity, Physical Assist, Cuing Verbal, Cuing Tactile FUNCTIONAL STATUS Bed Mobility Rolling: Minimal Assistance Supine To Sit: Minimal Assistance Sit to Supine: Maximal Assistance, Minimal Assistance Scooting: Moderate Assistance Transfers Sit To Stand: Maximal Assistance (Stood at bedside x 1 minute - wanted to sit immediately but encouraged to stand until nurse aide could straighten bed linens. Stood hyper flexed at the trunk and hips. States he could not straighten up. Max A for standing.) Stand To Sit: Maximal Assistance Bed to Chair Gait (Did not attempt) Stairs Range of Motion: ROM Limitation Comments ROM Limitation Comments: Limited in ROM of bilateral shoulders Strength: Strength Limitation Comments Strength Limitation Comments: grossly 3+/5 bilateral LE GOALS Patient will demonstrate progress with functional mobility to allow safe discharge to home with available support and/or physical assistance. Able to Perform HEP with: Independent Transfer Supine to/from Sit with: Independent Transfer Sit to/from Stand with: Independent Ambulate with: Modified Independent Distance: 50' Device: Wheeled Walker Rehab Potential: Good Progress Toward Goals: Progressing slower than expected PLAN PT Frequency: 3 Times Per Week Treatment Interventions: Education, Strengthening, Functional Mobility Training, Balance Training, Neuromuscular Re-education Plan for Next Visit: Bed Mobility, Gait Training, Sit to Stand Transfers, Standing Balance, Standing Tolerance, Walker Training SIGNATURE: Ophelia Perdue, PT PATIENT NAME: Samia Rivera DATE: August 17, 2024 TIME: 9:26 AM [facility] XR FOOT 3V AP/LAT/OBL RTon 0 08-17-2024 XR FOOT 3V AP/LAT/OBL RT * * *Final Report* * * DATE OF EXAM: Aug 17 2024 1:36PM RHX [id number] - XR FOOT 3V AP/LAT/OBL RT / PROCEDURE REASON: Post-operative / post-procedure assessment * * * * Physician Interpretation * * * * XR FOOT 3V AP/LAT/OBL RT Ordering Physician: UMANG WOOD Clinical Statement: Postoperative/postprocedural assessment. Pain. FINDINGS: The bones are osteopenic. There are minimally impacted fractures involving the neck of the second through the fourth metatarsals with slight lateral angulation. No additional fractures are shown. Diffuse soft tissue swelling. Plantar calcaneal enthesopathy.. IMPRESSION: Minimally impacted fractures of the second through the fourth metatarsals. Osteopenia with diffuse soft tissue swelling/edema. Critical Power Technician: RUBIO Transcribe Date/Time: Aug 18 2024 9:37A Dictated by : KELSIE CARRASCO MD This examination was interpreted and the report reviewed and electronically signed by: KELSIE CARRASCO MD on Aug 18 2024 9:40AM EST [id number] [facility] [facility] ALLIED HEALTHon 08-16-2024 ALLIED HEALTH HNO ID: [id number] Author: GIULIANA SCALES Tech Service: Radiology Author Type: Technologist Type: Allied Health Filed: 08/16/2024 17:28 Note Text: Summary: ct Radiology Service Progress Note PATIENT NAME: Samia Rivera DATE OF SERVICE: August 16, 2024 TIME: 5:28 PM PATIENT IDENTITY VERIFICATION COMPLETED USING TWO (2) IDENTIFIERS: Name and Date of confirmed by patient verbally. FALL SCREENING: Has the patient had 2 falls in the last year or 1 fall with injury or currently using an Ambulatory Assistive Device (Walker, Cane, Wheelchair, Crutches, etc.)? No PATIENT GENDER DATA: Assigned male at PATIENT RELEVANT IMPLANT DATA REVIEWED: Yes PATIENT PRESENTS WITH AN IMPLANTABLE OR ATTACHED AIRPORT MAINTENANCE LABORER: No RADIOLOGY DEPARTMENT: CT; Exam(s) Completed: Brain and Spine PERIPHERAL IV DATA: Not applicable SIGNED BY: Isabella Perez August 16, 2024 5:28 PM Normal [facility] CBC W Auto Differential pane l (Bld)on 08-16-2024 Basophils (Bld) [#/Vol] 0.03 10*3/uL Normal <0.11 [facility] Comment on above: Order Comment: Specimen Type: BLOOD SPEC IMEN Ordering Facility: [facility] Address: [address] [place] [address] Performed By: #### 5 7021-8 #### [facility] CLIA [id number] [address] [facility] [address] [place] [address] [place] Basophils/100 WBC (Bld) 0.5 % Normal [facility] Comment on above: Order Comment: Specimen Type: BLOOD SPEC IMEN Ordering Facility: [facility] Address: [address] [place] [address] Performed By: #### 5 7021-8 #### [facility] CLIA [id number] [address] [facility] [address] [place], [place] [address] [place] Differential cell count method Nom (Bld) Auto Normal [facility] Comment on above: Order Comment: Specimen Type: BLOOD SPEC IMEN Ordering Facility: [facility] Address: [address] [place] [address] Performed By: #### 5 7021-8 #### [facility] CLIA [id number] [address] [facility] [address] [place], [place] [address] [place] Eosinophils (Bld) [#/Vol] 0.09 10*3/uL Normal <0.46 [facility] Comment on above: Order Comment: Specimen Type: BLOOD SPEC IMEN Ordering Facility: [facility] Address: [address] [place] [address] Performed By: #### 5 7021-8 #### [facility] CLIA [id number] [address] [facility] [place] [facility] [address] [place], [place] [address] [place] Eosinophils/10 0 WBC (Bld) 1.4 % Normal [facility] Comment on above: Order Comment: Specimen Type: BLOOD SPEC IMEN Ordering Facility: [facility] Address: [address] [place] [address] Performed By: #### 5 7021-8 #### [facility] [id number] [address] [place] [address] [place] [address] [place] Erythrocyte distribution width (RBC) [Ratio] 13.9 % Normal 11.5-15.0 [facility] Comment on above: Order Comment: Specimen Type: BLOOD SPEC IMEN Ordering Facility: [facility] Address: [address] [place] [address] Performed By: #### 5 7021-8 #### [facility] IA [id number] [address] [place], [place] [address] [place] Hematocrit (Bld) [Volume fraction] 34.2 % Low 39.0-51.0 [facility] Comment on above: Order Comment: Specimen Type: BLOOD SPEC IMEN Ordering Facility: [facility] Address: [address] [place] [address] Performed By: #### 5 7021-8 #### [facility] CLIA [id number] 7337 [facility] [address] [place], [place] [address] [place] Hemoglobin (Bld) [Mass/Vol] 12.0 g/dL Low 13.0-17.0 [facility] Comment on above: Order Comment: Specimen Type: BLOOD SPEC IMEN Ordering Facility: [facility] Address: [address] [place] [address] Performed By: #### 5 7021-8 #### [facility] CLIA [id number] [address] [place] [address] [place] [address] [facility] Immature granulocytes (Bld) [#/Vol] 10*3/uL Normal <0.10 [facility] Comment on above: Order Comment: Specimen Type: BLOOD SPEC IMEN Ordering Facility: [facility] Address: [address] [place] [address] Performed By: #### 5 7021-8 #### [facility] CLIA [id number] [address] [place] [address] [place] [address] Immature granulocytes/1 00 WBC (Bld) 0.2 % Normal [facility] Comment on above: Order Comment: Specimen Type: BLOOD SPEC IMEN Ordering Facility: [facility] Address: [address] [place] [address] Performed By: #### 5 7021-8 #### [facility] [id number] [address] [place] [address] [place], [place] [address] [place] Lymphocytes (Bld) [#/Vol] 1.09 10*3/uL Normal 1.00-4.00 [facility] Comment on above: Order Comment: Specimen Type: BLOOD SPEC IMEN Ordering Facility: [facility] Address: [address] [place] [address] Performed By: #### 5 7021-8 #### [facility] IA [id number] [address] [place] [address] [place] [address] [place] Lymphocytes/10 0 WBC (Bld) 16.5 % Normal [facility] Comment on above: Order Comment: Specimen Type: BLOOD SPEC IMEN Ordering Facility: [facility] Address: [address] [place] [address] Performed By: #### 5 7021-8 #### [facility] CLIA [id number] [address] [place] [address] [address], [place] [address] [place] MCH (RBC) [Entitic mass] 32.6 pg Normal 26.0-34.0 [facility] Comment on above: Order Comment: Specimen Type: BLOOD SPEC IMEN Ordering Facility: [facility] Address: [address] [place] [address] Performed By: #### 5 7021-8 #### [facility] CLIA [id number] [address] [facility] [facility] [address] [place], [place] [address] [place] MCHC (RBC) [Mass/Vol] 35.1 g/dL Normal 30.5-36.0 [facility] Comment on above: Order Comment: Specimen Type: BLOOD SPEC IMEN Ordering Facility: [facility] Address: [address] [place] [address] Performed By: #### 5 7021-8 #### [facility] CLIA [id number] [address] [facility] [address] [place] [address] [place] MCV (RBC) [Entitic vol] 92.9 fL Normal 80.0-100.0 [facility] Comment on above: Order Comment: Specimen Type: BLOOD SPEC IMEN Ordering Facility: [facility] Address: [address] [place] [address] Performed By: #### 5 7021-8 #### [facility] CLIA [id number] [address] [facility] [place] [facility] [address] [place] [address] [place] Monocytes (Bld) [#/Vol] 0.81 10*3/uL Normal <0.87 [facility] Comment on above: Order Comment: Specimen Type: BLOOD SPEC IMEN Ordering Facility: [facility] Address: [address] [place] [address] Performed By: #### 5 7021-8 #### [facility] CLIA [id number] [address] [facility] [place] [facility] [address] [place], [place] [address] [facility] [place] Monocytes/100 WBC (Bld) 12.3 % Normal [facility] Comment on above: Order Comment: Specimen Type: BLOOD SPEC IMEN Ordering Facility: [facility] Address: [address] [place] [address] Performed By: #### 5 7021-8 #### [facility] CLIA [id number] [address] [place] [address] [place] [address] [place] Neutrophils (Bld) [#/Vol] 4.57 10*3/uL Normal 1.45-7.50 [facility] Comment on above: Order Comment: Specimen Type: BLOOD SPEC IMEN Ordering Facility: [facility] Address: [address] [place] [address] Performed By: #### 5 7021-8 #### [facility] CLIA [id number] [address] [place] [address] [place] [address] [place] Neutrophils/10 0 WBC (Bld) 69.1 % Normal [facility] Comment on above: Order Comment: Specimen Type: BLOOD SPEC IMEN Ordering Facility: [facility] Address: [address] [place] [address] Performed By: #### 5 7021-8 #### [facility] CLIA [id number] [address] [place] [address] [place] [address] [place] Nucleated RBC (Bld) [#/Vol] 10*3/uL Normal <0.01 [facility] Comment on above: Order Comment: Specimen Type: BLOOD SPEC IMEN Ordering Facility: [facility] Address: [address] [place] [address] Performed By: #### 5 7021-8 #### [facility] CLIA [id number] [address] [place] [address] [place], [place] [address] [place] Nucleated RBC/100 WBC (Bld) [Ratio] 0.0 /100 WBC Normal [facility] Comment on above: Order Comment: Specimen Type: BLOOD SPEC IMEN Ordering Facility: [facility] Address: [address] [place] [address] Performed By: #### 5 7021-8 #### [facility] CLIA [id number] [address] [place] [address] [place] [address] [place] Platelet mean volume (Bld) [Entitic vol] 9.0 fL Normal 9.0-12.7 [facility] Comment on above: Order Comment: Specimen Type: BLOOD SPEC IMEN Ordering Facility: [facility] Address: [address] [place] [address] Performed By: #### 5 7021-8 #### [facility] CLIA [id number] [address] [place] [address] [place], [place] [address] [place] Platelets (Bld) [#/Vol] 160 10*3/uL Normal 150-400 [facility] Comment on above: Order Comment: Specimen Type: BLOOD SPEC IMEN Ordering Facility: [facility] Address: [address] [place] [address] Performed By: #### 5 7021-8 #### [facility] CLIA [id number] [address] [facility] [address] [place] [address] [place] RBC (Bld) [#/Vol] 3.68 10*6/uL Low 4.20-6.00 [facility] Comment on above: Order Comment: Specimen Type: BLOOD SPEC IMEN Ordering Facility: [facility] Address: [address] [place] [address] Performed By: #### 5 7021-8 #### [facility] [id number] [address] [facility] [address] [place], [place] [address] [place] WBC (Bld) [#/Vol] 6.60 10*3/uL Normal 3.70-11.00 [facility] Comment on above: Order Comment: Specimen Type: BLOOD SPEC IMEN Ordering Facility: [facility] Address: [address] [place] [address] Performed By: #### 5 7021-8 #### [facility] CLIA [id number] [address] [facility] [address] [place] [address] [place] CT BRAIN WO IVCONon 08-17-19 CT BRAIN WO IVCON * * *Final Report* * * DATE OF EXAM: Aug 16 2024 5:47PM [facility] 0504 - CT BRAIN WO IVCON / PROCEDURE REASON: Mental status change, unknown cause * * * * Physician Interpretation * * * * EXAM: CT BRAIN WO IVCON, CT CERVICAL SPINE WO IVCON Exam Date/Time: 08/16/2024 5:47 PM CLINICAL HISTORY: Mental status change, unknown cause Spine fracture. TECHNIQUE: Axial CT images of the head from the skull base to vertex are obtained without IV contrast. Spiral, high resolution axial unenhanced images were obtained from the skull base to the cervicothoracic junction with sagittal and coronal planar reconstructions. CT Radiation dose: Integrated CT Dose-Length Product (DLP) for this visit = 1174.24 mGy*cm CT Dose Reduction Employed: Automated exposure control(AEC) and iterative recon RESULTS: Head CT: No acute intracranial hemorrhage, shift of midline structures or mass effect. No evidence for acute territorial cortical infarct. Patchy periventricular and subcortical white matter hypoattenuation, suggesting chronic microangiopathic ischemic disease. The ventricles and sulci are symmetric with prominence of the CSF spaces, suggesting generalized volume loss. No extra-axial collections. No depressed calvarial fractures. Partial opacification of bilateral maxillary sinuses and right anterior ethmoid air cell. Remaining visualized paranasal sinuses and mastoid air cells are clear. Cervical spine CT: Counting reference: Craniocervical junction. Craniocervical junction: Craniocervical junction is normal. Alignment: Multiple levels of mild degenerative spondylolisthesis. No suspected posttraumatic subluxation. Osseous structures/fracture: No evidence of acute or chronic fracture. Degenerative changes: Multilevel disc space narrowing with endplate remodeling and bilateral uncovertebral and facet joint arthropathy. This results in multiple levels of advanced bilateral neural foraminal narrowing and mild central canal narrowing. No high-grade central canal stenosis. Soft tissues: The paraspinal soft tissues are within normal limits. The visualized lung apices are clear. IMPRESSION: Head CT: No acute intracranial abnormality. Cervical spine CT: No acute fracture or posttraumatic subluxation. Critical Power Technician: RUBIO Transcribe Date/Time: Aug 16 2024 5:59P Dictated by : AGUSTINA GRACIA MD This examination was interpreted and the report reviewed and electronically signed by: AGUSTINA GRACIA MD on Aug 16 2024 6:01PM EST [id number] Normal [facility] CT CERVICAL SPINE WO IVCONon 08-16-2024 CT CERVICAL SPINE WO IVCON * * *Final Report* * * DATE OF EXAM: Aug 16 2024 5:47PM [facility] 0505 - CT CERVICAL SPINE WO IVCON / PROCEDURE REASON: multiple elderly falls * * * * Physician Interpretation * * * * EXAM: CT BRAIN WO IVCON, CT CERVICAL SPINE WO IVCON Exam Date/Time: 08/16/2024 5:47 PM CLINICAL HISTORY: Mental status change, unknown cause Spine fracture. TECHNIQUE: Axial CT images of the head from the skull base to vertex are obtained without IV contrast. Spiral, high resolution axial unenhanced images were obtained from the skull base to the cervicothoracic junction with sagittal and coronal planar reconstructions. CT Radiation dose: Integrated CT Dose-Length Product (DLP) for this visit = 1174.24 mGy*cm CT Dose Reduction Employed: Automated exposure control(AEC) and iterative recon RESULTS: Head CT: No acute intracranial hemorrhage, shift of midline structures or mass effect. No evidence for acute territorial cortical infarct. Patchy periventricular and subcortical white matter hypoattenuation, suggesting chronic microangiopathic ischemic disease. The ventricles and sulci are symmetric with prominence of the CSF spaces, suggesting generalized volume loss. No extra-axial collections. No depressed calvarial fractures. Partial opacification of bilateral maxillary sinuses and right anterior ethmoid air cell. Remaining visualized paranasal sinuses and mastoid air cells are clear. Cervical spine CT: Counting reference: Craniocervical junction. Craniocervical junction: Craniocervical junction is normal. Alignment: Multiple levels of mild degenerative spondylolisthesis. No suspected posttraumatic subluxation. Osseous structures/fracture: No evidence of acute or chronic fracture. Degenerative changes: Multilevel disc space narrowing with endplate remodeling and bilateral uncovertebral and facet joint arthropathy. This results in multiple levels of advanced bilateral neural foraminal narrowing and mild central canal narrowing. No high-grade central canal stenosis. Soft tissues: The paraspinal soft tissues are within normal limits. The visualized lung apices are clear. IMPRESSION: Head CT: No acute intracranial abnormality. Cervical spine CT: No acute fracture or posttraumatic subluxation. Critical Power Technician: RUBIO Transcribe Date/Time: Aug 16 2024 5:59P Dictated by : AGUSTINA GRACIA MD This examination was interpreted and the report reviewed and electronically signed by: AGUSTINA GRACIA MD on Aug 16 2024 6:01PM EST [id number] Normal [facility] Comprehensive metabolic 2000 panelon 08-16-2024 Albumin [Mass/Vol] 3.8 g/dL Normal 3.2-5.0 [facility] Comment on above: Order Comment: Specimen Type: BLOOD SPEC IMEN Ordering Facility: [facility] Address: [address] [place] [address] Performed By: #### 5 7021-8 #### [facility] CLIA [id number] [address] [facility] [place] [facility] [address] [place] [address] [place] ALP [Catalytic activity/Vol] 94 U/L Normal 45-117 [facility] Comment on above: Order Comment: Specimen Type: BLOOD SPEC IMEN Ordering Facility: [facility] Address: [address] [place] [address] Performed By: #### 5 7021-8 #### [facility] CLIA [id number] [address] [facility] [place] [facility] [address] [place] [address] [place] ALT [Catalytic activity/Vol] 17 U/L Normal 13-61 [facility] Comment on above: Order Comment: Specimen Type: BLOOD SPEC IMEN Ordering Facility: [facility] Address: [address] [place] [address] Result Comment: Resu lts may be falsely depressed after the administration of Sulfasalazine and/or Sulfapyridine. Performed By: #### 5 7021-8 #### [facility] CLIA [id number] [address] [facility] [place] [facility] [address] [place] [address] [place] Anion gap [Moles/Vol] 12 mmol/L Normal 5-16 [facility] Comment on above: Order Comment: Specimen Type: BLOOD SPEC IMEN Ordering Facility: [facility] Address: [address] [place] [address] Performed By: #### 5 7021-8 #### [facility] CLIA [id number] [address] [place] [address] [place] AST [Catalytic activity/Vol] 31 U/L Normal 8-34 [facility] Comment on above: Order Comment: Specimen Type: BLOOD SPEC IMEN Ordering Facility: [facility] Address: [address] [place] [address] Result Comment: Resu lts may be falsely depressed after the administration of Sulfasalazine and/or Sulfapyridine. Performed By: #### 5 7021-8 #### [facility] CLIA [id number] [address] [place] [address] [place] Bilirubin [Mass/Vol] 0.7 mg/dL Normal 0.2-1.0 [facility] Comment on above: Order Comment: Specimen Type: BLOOD SPEC IMEN Ordering Facility: [facility] Address: [address] [place] [address] Performed By: #### 5 7021-8 #### [facility] CLIA [id number] [address] [place] [address] [place] Calcium [Mass/Vol] 10.2 mg/dL Normal 8.5-10.5 [facility] Comment on above: Order Comment: Specimen Type: BLOOD SPEC IMEN Ordering Facility: [facility] Address: [address] [place] [address] Performed By: #### 5 7021-8 #### [facility] CLIA [id number] [address] [place] [address] [place] Chloride [Moles/Vol] 104 mmol/L Normal 98-107 [facility] Comment on above: Order Comment: Specimen Type: BLOOD SPEC IMEN Ordering Facility: [facility] Address: [address] [place] [address] Performed By: #### 5 7021-8 #### [facility] CLIA [id number] [address] [place] [address] [place] CO2 [Moles/Vol] 20 mmol/L Low 21-32 [facility] Comment on above: Order Comment: Specimen Type: BLOOD SPEC IMEN Ordering Facility: [facility] Address: [address] [place] [address] Performed By: #### 5 7021-8 #### [facility] CLIA [id number] [address] [place] [address] [place] Creatinine [Mass/Vol] 1.75 mg/dL High 0.50-1.40 [facility] Comment on above: Order Comment: Specimen Type: BLOOD SPEC IMEN Ordering Facility: [facility] Address: [address] [place] [address] Result Comment: Cecy ents receiving either N-Acetylcysteine (NAC) or Metamizole prior to venipuncture, may have falsely depressed results. Performed By: #### 5 7021-8 #### [facility] CLIA [id number] [address] [place] [address] [place] Creatinine and Glomerular filtration rate.predicted panel (S/P/Bld) 38 mL/min/1.73m??? Low >=60 [facility] Comment on above: Order Comment: Specimen Type: BLOOD SPEC IMEN Ordering Facility: [facility] Address: [address] [place] [address] Result Comment: Promise mated Glomerular Filtration Rate (eGFR) is calculated using the 2020 CKD-EPI creatinine equation. This equation utilizes serum creatinine, sex, and age as parameters. The creatinine assay has traceable calibration to isotope dilution-mass spectrometry. Refer to KDIGO guidelines for clinical interpretation. In patients with unstable renal function, e.g. those with acute kidney injury, the eGFR may not accurately reflect actual GFR. Performed By: #### 5 7021-8 #### [facility] CLIA [id number] [address] [place] [address] [place] Glucose [Mass/Vol] 93 mg/dL Normal 70-100 [facility] Comment on above: Order Comment: Specimen Type: BLOOD SPEC IMEN Ordering Facility: [facility] Address: [address] [place], [place] [id number] Result Comment: The [place] [employer] (ADA) provides guidance for cutoff values for fasting glucose and random glucose. The ADA defines fasting as no caloric intake for at least 8 hours. Fasting plasma glucose results between 100 to 125 mg/dL indicate increased risk for diabetes (prediabetes). Fasting plasma glucose results greater than or equal to 126 mg/dL meet the criteria for diagnosis of diabetes. In the absence of unequivocal hyperglycemia, results should be confirmed by repeat testing. In a patient with classic symptoms of hyperglycemia or hyperglycemic crisis, random plasma glucose results greater than or equal to 200 mg/dL meet the criteria for diagnosis of diabetes. Reference: Standards of Medical Care in Diabetes 2016, [place] [employer]. Diabetes Care. 2016.39(Suppl 1). Results may be falsely elevated after the administration of Sulfapyridine. Results may be falsely depressed after the administration of Sulfasalazine. Performed By: #### 5 7021-8 #### [facility] IA [id number] [address] [facility] [address] [place] [address] [place] Potassium [Moles/Vol] 4.5 mmol/L Normal 3.5-5.1 [facility] Comment on above: Order Comment: Specimen Type: BLOOD SPEC IMEN Ordering Facility: [facility] Address: [address] [place] [address] Performed By: #### 5 7021-8 #### [facility] CLIA [id number] [address] [facility] [address] [place] [address] [place] Protein [Mass/Vol] 7.4 g/dL Normal 6.0-8.5 [facility] Comment on above: Order Comment: Specimen Type: BLOOD SPEC IMEN Ordering Facility: [facility] Address: [address] [place] [address] Performed By: #### 5 7021-8 #### [facility] CLIA [id number] [address] [facility] [address] [place] [address] [place] Sodium [Moles/Vol] 136 mmol/L Normal 136-145 [facility] Comment on above: Order Comment: Specimen Type: BLOOD SPEC IMEN Ordering Facility: [facility] Address: [address] [place], [place] [id number] Performed By: #### 5 7021-8 #### [facility] CLIA [id number] [address] [facility] [address] [place] [id number] [place] [address] Urea nitrogen [Mass/Vol] 36 mg/dL High 11-13 [facility] Comment on above: Order Comment: Specimen Type: BLOOD SPEC IMEN Ordering Facility: [facility] Address: [address] [place], [place] [id number] Performed By: #### 5 7021-8 #### [facility] CLIA [id number] [address] [facility] [address] [place] [address] [place] ECG COMPLETEon 08-16-2024 ECG COMPLETE Ventricular Rate : 6 0 BPM Atrial Rate : 60 BPM P-R Interval : 266 ms QRS Duration : 80 ms Q-T Interval : 400 ms QTC Calculation(Bazett) : 400 ms Calculated R Bells : 62 degrees Calculated T Bells : 61 degrees Atrial-paced rhythm with prolonged AV conduction Abnormal ECG Compared to prior tracing Significant changes have occurred Confirmed by PHILLIP DAVIS MD ([id number]) on 08/16/2024 6:40:21 PM NAME : SAMIA RIVERA PID : [id number] : 1940 Gender : Male Race : ORD : [id number] Procedure Date : Aug 16 2024 16:54:35 Edit Date : Aug 16 2024 18:40:22 Diagnosis: Atrial-paced rhythm with prolonged AV conduction Abnormal ECG Compared to prior tracing Significant changes have occurred Confirmed by PHILLIP DAVIS MD ([id number]) on 08/16/2024 6:40:21 PM Test Reason : STAT Location : 0 : ED [id number] Overread By : PHILLIP DAVIS MD Edited By : PHILLIP DAVIS MD Referred By : , Acquired by : ED, [facility] ED NOTEon 08-16-2024 ED NOTE HNO ID: [id number] Author: BETH VEGA RN Service: ? Author Type: Registered Nurse Type: ED Notes Filed: 08/16/2024 20:46 Note Text: Pt. able to sit up at side of bed but unable to stand to ambulate on his own. Normal [facility] ED PROV NOTEon 08-16-2024 ED PROV NOTE HNO ID: [id number] Author: ROEL SOLORIO MD Service: Emergency Medicine Author Type: Physician Type: ED Provider Notes Filed: 08/16/2024 22:55 Note Text: ED Provider Note Patient Name: Samia Rivera : 1940 SERVICE DATE: 08/16/24 History Patient presents with: Fall: Fall, two falls today couldn't get up. Deneis any known injuries. Prior to fall had complaints of back pain . Patient evaluated for his reported falls. Patient is a poor historian unable to provide details. He reportedly lives at home with family. He denies any headache or neck pain. Denies any chest pain or abdominal pain. Patient was brought in by EMS. Reportedly complaining of back pain but currently denying. He reports feeling generally weak. Denies any nasal congestion, sore throat, cough. PAST MEDICAL HISTORY Diagnosis Date Chronic anxiety Chronic back pain Chronic pruritus Chronic renal insufficiency, stage III (moderate) ([facility]) Gait instability GERD (gastroesophageal reflux disease) HTN (hypertension) Memory loss Neurodermatitis Presence of cardiac pacemaker 11/06/2020 [place] Situational depression SSS (sick sinus syndrome) ([facility]) Vertigo PAST SURGICAL HISTORY Procedure Laterality Date (NEW IMPLANT DUAL CHAMBER PPM) INSERTION OF A NEW PERMANENT PACEMAKER W/ INSERTION OF NEW TRANSVENOUS ELECTRODE(S) ATRIAL AND VENTRICULAR Right 11/06/2020 [facility] ARTHROPLASTY HEMIARTHROPLASTY Right 08/01/2019 CHOLECYSTECTOMY 1983 CYST/MOLE REMOVAL 2018 on tailbone LAPAROSCOPY, ORCHIOPEXY 1965 PERCUTANEOUS LUMBAR DISKECTOMY 1990 SEPTOPLASTY 1985 TONSILLECTOMY AND ADENOIDECTOMY AGE 10/> 1971 FAMILY HISTORY Family history unknown: Yes Social History Tobacco Use Smoking status: Never Passive exposure: Never Smokeless tobacco: Never Vaping Use Vaping status: Never Used Substance and Sexual Activity Alcohol use: Not Currently Drug use: Never Sexual activity: Not on file ALLERGIES Allergen Reactions Meperidine GI Upset, Unknown Oxycodone Mental Status Change Review of Systems Constitutional: Negative for fever. HENT: Negative for congestion and sore throat. Respiratory: Negative for shortness of breath. Cardiovascular: Negative for chest pain. Gastrointestinal: Negative for abdominal pain. Genitourinary: Negative for dysuria. Musculoskeletal: Positive for back pain. Negative for neck pain. Neurological: Negative for headaches. Physical Exam Vitals [08/16/24 1624] BP Pulse Temp Temp src Resp SpO2 Weight Height 159/65 60 -- -- 16 100 % 87.5 kg (193 lb) 1.93 m (6' 4) Physical Exam Vitals and nursing note reviewed. Constitutional: General: He is not in acute distress. Appearance: He is well-developed. Comments: 83-year-old elderly male. HENT: Head: Normocephalic and atraumatic. Mouth/Throat: Pharynx: Oropharynx is clear. Eyes: Extraocular Movements: Extraocular movements intact. Pupils: Pupils are equal, round, and reactive to light. Neck: Comments: No focal cervical tenderness. Cardiovascular: Rate and Rhythm: Normal rate and regular rhythm. Comments: Nontender pacemaker device with no overlying skin changes in right upper chest. Pulmonary: Effort: Pulmonary effort is normal. Breath sounds: Normal breath sounds. Chest: Chest wall: No tenderness. Abdominal: General: Bowel sounds are normal. Palpations: Abdomen is soft. Tenderness: There is no abdominal tenderness. Musculoskeletal: General: No tenderness or deformity. Normal range of motion. Cervical back: Normal range of motion. Right lower leg: Edema present. Left lower leg: Edema present. Comments: Symmetric 2+ lower extremity edema. No calf tenderness. No obvious deformity or tenderness to gross palpation of upper and lower extremities. No clavicular tenderness. No focal thoracic or lumbar spinal tenderness. Skin: General: Skin is warm and dry. Comments: Superficial abrasions to the dorsa left wrist and forearm. Patient has scabs to his left shoulder, left upper back healing by secondary approximation. Neurological: Mental Status: He is alert. Comments: Able to lift all 4 extremities against gravity. No aphasia or dysarthria. Bilateral lower extremities are weak and drift. Sensation intact. Vision intact. Patient struggled with orientation questions of age, month, year. Exam concerning for dementia. Diagnostic Testing ED Labs Ordered and Reviewed - No data to display Procedures ED Course / Clinical Impression ED Course as of 08/16/24 5512 Roel Solorio's Documentation FriAug 16, 2024 1657 ECG COMPLETE Atrial paced rhythm with prolonged AV conduction, UT interval. QRS within normal limits. No acute ischemic ST or T wave changes. 1849 CT BRAIN WO IVCON No acute intracranial abnormality. 1849 CT CERVICAL SPINE WO IVCON No acute fracture or posttraumatic subluxation. 1849 XR CHEST 1V FRONTAL PORT No acute cardiopu (more content not included)... Normal [facility] HIGH SENSITIVITY TROPONIN Io n 08-16-2024 Tropinin I.cardiac panel High sensitivity method 13.4 pg/mL Normal 0.0-54.0 [facility] Comment on above: Order Comment: Specimen Type: BLOOD SPEC IMEN Ordering Facility: [facility] Address: [address] [place] [address] Performed By: #### 5 7021-8 #### [facility] CLIA [id number] [address] [facility] [address] [place] [address] [place] HISTORY PHYSICALon HISTORY PHYSICAL HNO ID: [id number] Author: RAYMOND MARTINES MD Service: Hospital Medicine Author Type: Physician Type: H&P Filed: 08/16/2024 21:19 Note Text: HISTORY AND PHYSICAL EXAMINATION PATIENT NAME: Samia Rivera SERVICE DATE AND TIME: 08/16/2024 9:07 PM PRIMARY CARE PHYSICIAN: JENNIFER VELIZ MD CHIEF COMPLAINT: Frequent falls at home with progressing weakness. HPI: This is a 83 year old male with a PMH of dementia, GERD, sick sinus syndrome with pacemaker in place since 2020, CKD stage IIIb, hypertension, secondary hyperparathyroidism, secondary anemia from CKD, BPH, depression , who presents to the ER with frequent falls and generalized weakness over the past few weeks. He has had to call EMS multiple times to help him get up at home he is now so weak he has difficulty just standing at bedside. The patient denies any fever, chills or night sweats. He has had chest pain and shortness of breath with exertion with a little bit of nausea and diaphoresis. No vomiting, diarrhea or constipation. He has urinary urgency and occasionally incontinence but no hematuria or dysuria. Occasionally he has earaches but no hearing loss or sinus congestions. No sore throat or cough. No heart palpitations. His right lower extremity feels tender when moving around in bed but otherwise no symptoms. During the ER evaluation he is afebrile with normal vital signs. Labs show normal white blood cell count, mild anemia with a, globin of 12. Normal troponin I and proBNP. Urinalysis does not appear infected just concentrated. Electrolytes normal with known elevated BUN/creatinine from his CKD. Influenza A/B, RSV and COVID-[address] of the brain and cervical spine without any acute abnormalities. Chest x-ray without any acute abnormalities. Thoracic x-ray with a T12 compression indeterminant age. EKG is a paced atrial rhythm 60 bpm, prolonged AV conduction. While in the ER he did not require any treatment but due to his generalized weakness living at home with his both who require a walker to ambulate and his frequent falls requiring EMS to help him up he will be admitted to the hospital for further assessment, therapy evaluation and possible placement. After discussion with the ED Physician, it was agreed the patient will need placed in OBSERVATION status and placed on a Continuous Motor Vehicles Supervisor. for neurolyse weakness, frequent falls. ASSESSMENT/PLAN: PRINCIPLE PROBLEM: 1. Generalized weakness, frequent falls - Patient complains of chest pain, shortness of breath, diaphoresis and nausea with activity - Will continue to cycle troponin I every 6 hours for 3 values - Will do stress test - Evaluate patient's pacemaker to make sure it is functioning accurately - Patient appears volume depleted, IV fluids overnight - Monitor ins and outs -Sed rate -T12 compression fracture uncertain age, does not seem particularly tender here - PT and OT consults - regional planner for possible placement at discharge - Patient complains of pain around the right knee but during my exam he is moving all extremities equally without any known deformities or significant reproducible pain so hold on further imaging at this time unless patient starts to have notable deficits with his therapy services ADDITIONAL PROBLEMS: 2. BPH - Bladder scan -Looks like patient was recently on Flomax but no prescription seen at this time - May need to restart this admit 3. Dementia/depression - Continue home dose of Zoloft -Closely monitor for any sundowning or hospital psychosis while admitted 4. CKD stage IIIb - BUN and creatinine slightly elevated from baseline - Gently hydrate - Recheck a BMP in a.m. 5. Anemia - Appears chronic and probably due to his CKD - No signs or symptoms of bleeding - Will recheck periodically as appropriate. DVT ASSESSMENT 6. Encourage early and ongoing ambulation/mobility as appropriate and tolerated by patient Heparin 5,000 units SQ q12 hrs FLUIDS/ELECTROLYTES/DIET: Regular diet LR @ 100cc/hr DEVICES PRESENT ON ADMISSION: Peripheral IV Telemetry BMI: Body mass index is 23.49 kg/m?. 18.5-24.9 (Normal weight) ISOLATION OR OTHER SPECIAL CONSIDERATIONS: Does not need Isolation. ACTIVITY AT HOME: Independent Lives with spouse or a significant other Requires an assistive device(s): Walker ACTIVITY ON ADMISSION: Up with assist WOUNDS/PRESSURE INJURIES POA: None DISPOSITION AT DISCHARGE: TBD CODE STATUS: Code status not discussed during this exam and evaluation. Please Note: Additional external medical records were reviewed from the EMR and/or those that accompanied the patient, including labs, imaging and test results. I have also reviewed the patients prescription fill history for the past six months. PAST MEDICAL HISTORY Diagnosis Date Chronic anxiety Chronic back pain Chronic pruritus Chronic renal insuffic (more content not included)... Normal [facility] Magnesium [Mass/Vol] 1.8 mg/dL Normal 1.6-2.6 [facility] Comment on above: Order Comment: Specimen Type: BLOOD SPEC IMEN Ordering Facility: [facility] Address: [address] [place] [address] Performed By: #### 5 7021-8 #### [facility] CLIA [id number] [address] [facility] NT-proBNP [facility] 08[facility]16 Natriuretic peptide.B prohormone N-Terminal [Mass/Vol] 235 pg/mL Normal <450 [facility] Comment on above: Order Comment: Specimen Type: BLOOD SPEC IMEN Ordering Facility: [facility] Address: [address] [place] [address] Result Comment: NT-p roBNP results of less than 300 pg/mL likely rules out acute congestive heart failure with 99% predictive value. NOTE: These cutoff points are suggested for ACUTE CHF DIAGNOSIS only Less than 50 years\X09\ Greater than 450 pg/mL 50 - 75 years\X09\\X09\ Greater than 900 pg/mL Greater than 75 years\X09\ Greater than 1800 pg/mL Performed By: #### 5 7021-8 #### [facility] CLIA [id number] [address] [facility] [address] [place] [address] [place] TSH SerPl-aCncon 08-16-2024 TSH Qn 1.917 m[IU]/L Normal 0.358-3.74 0 [facility] Comment on above: Order Comment: Specimen Type: BLOOD SPEC IMEN Ordering Facility: [facility] Address: [address] [place] [address] Result Comment: 3rd generation ultra sensitive TSH. Performed By: #### 5 7021-8 #### [facility] CLIA [id number] [address] [facility] [address] [place] [address] [place] Urinalysis complete panel (U )on 08-16-2024 Bacteria LM.HPF (Urine sed) [#/Area] None Seen Normal None Seen [facility] Comment on above: Order Comment: Specimen Type: BLOOD SPEC IMEN Ordering Facility: [facility] Address: [address] [place] [address] Performed By: #### 1 989-3 #### [facility] CLIA [id number] [address] [place] [address] [place] Bilirubin Ql (U) Negative Normal Negative [facility] Comment on above: Order Comment: Specimen Type: BLOOD SPEC IMEN Ordering Facility: [facility] Address: [address] [place] [address] Performed By: #### 1 989-3 #### [facility] CLIA [id number] [address] [place] [address] [place] Clarity (Unsp spec) Clear Normal Clear [facility] Comment on above: Order Comment: Specimen Type: BLOOD SPEC IMEN Ordering Facility: [facility] Address: [address] [place] [address] Performed By: #### 1 989-3 #### [facility] CLIA [id number] [address] [place] [address] [place] Color (U) Yellow Normal Yellow [facility] Comment on above: Order Comment: Specimen Type: BLOOD SPEC IMEN Ordering Facility: [facility] Address: [address] [place] [address] Performed By: #### 1 989-3 #### [facility] CLIA [id number] [address] [place] [address] [place] Epithelial cells LM.HPF (Urine sed) [#/Area] Few Normal [facility] Comment on above: Order Comment: Specimen Type: BLOOD SPEC IMEN Ordering Facility: [facility] Address: [address] [place] [address] Performed By: #### 1 989-3 #### [facility] CLIA [id number] [address] [place] [address] [place] Glucose Test strip (U) [Mass/Vol] Negative Normal Negative [facility] Comment on above: Order Comment: Specimen Type: BLOOD SPEC IMEN Ordering Facility: [facility] Address: [address] [place] [address] Performed By: #### 1 989-3 #### [facility] CLIA [id number] [address] [place] [address] [place] Hemoglobin Ql (U) 1+ Abnormal Negative [facility] Comment on above: Order Comment: Specimen Type: BLOOD SPEC IMEN Ordering Facility: [facility] Address: [address] [place] [address] Performed By: #### 1 989-3 #### [facility] CLIA [id number] [address] [place] [address] [place] Hyaline casts (Urine sed) [#/Area] 1-3 /LPF Abnormal 0 /LPF [facility] Comment on above: Order Comment: Specimen Type: BLOOD SPEC IMEN Ordering Facility: [facility] Address: [address] [place] [address] Performed By: #### 1 989-3 #### [facility] CLIA [id number] [address] [place] [address] [place] Ketones Ql (U) Trace Abnormal Negative [facility] Comment on above: Order Comment: Specimen Type: BLOOD SPEC IMEN Ordering Facility: [facility] Address: [address] [place] [address] Performed By: #### 1 989-3 #### [facility] CLIA [id number] [address] [place] [address] [place] Leukocyte esterase Test strip Ql (U) Trace Abnormal Negative [facility] Comment on above: Order Comment: Specimen Type: BLOOD SPEC IMEN Ordering Facility: [facility] Address: [address] [place] [address] Performed By: #### 1 989-3 #### [facility] CLIA [id number] [address] [place] [address] [place] Nitrite Ql (U) Negative Normal Negative [facility] Comment on above: Order Comment: Specimen Type: BLOOD SPEC IMEN Ordering Facility: [facility] Address: [address] [place] [address] Performed By: #### 1 989-3 #### [facility] CLIA [id number] [address] [place] [address] [place] pH (U) 6.0 [pH] Normal 5.0-8.0 [facility] Comment on above: Order Comment: Specimen Type: BLOOD SPEC IMEN Ordering Facility: [facility] Address: [address] [place] [address] Performed By: #### 1 989-3 #### [facility] CLIA [id number] [address] [place] [address] [place] Protein (U) [Mass/Vol] Negative Normal Negative [facility] Comment on above: Order Comment: Specimen Type: BLOOD SPEC IMEN Ordering Facility: [facility] Address: [address] [place] [address] Performed By: #### 1 989-3 #### [facility] CLIA [id number] [address] [place] [address] [place] RBC LM.HPF (Urine sed) [#/Area] 0-3 /HPF Normal 0-3 /HPF [facility] Comment on above: Order Comment: Specimen Type: BLOOD SPEC IMEN Ordering Facility: [facility] Address: [address] [place] [address] Performed By: #### 1 989-3 #### [facility] CLIA [id number] [address] [place] [address] [place] Specific gravity (U) [Rel density] 1.014 Normal 1.005-1.03 0 [facility] Comment on above: Order Comment: Specimen Type: BLOOD SPEC IMEN Ordering Facility: [facility] Address: [address] [place] [address] Performed By: #### 1 989-3 #### [facility] CLIA [id number] [address] [place] [address] [place] Urobilinogen Ql (U) Negative Normal Negative [facility] Comment on above: Order Comment: Specimen Type: BLOOD SPEC IMEN Ordering Facility: [facility] Address: [address] [place] [address] Performed By: #### 1 989-3 #### [facility] CLIA [id number] [address] [place] [address] [place] WBC LM.HPF (Urine sed) [#/Area] 6-10 /HPF Abnormal 0-5 /HPF [facility] Comment on above: Order Comment: Specimen Type: BLOOD SPEC IMEN Ordering Facility: [facility] Address: [address] [place] [address] Performed By: #### 1 989-3 #### [facility] CLIA [id number] [address] [place] [address] [place] XR CHEST 1V FRONTAL PORTon 0 08-16-2024 XR CHEST 1V FRONTAL PORT * * *Final Report* * * DATE OF EXAM: Aug 16 2024 5:17PM [id number] - XR CHEST 1V FRONTAL PORT / PROCEDURE REASON: Fatigue and malaise * * * * Physician Interpretation * * * * EXAM: XR CHEST 1V FRONTAL PORT CLINICAL HISTORY: Fatigue and malaise Fatigue and malaise COMPARISON: 04/01/2024 RESULT: Lines, tubes, and devices: Stable right-sided cardiac stimulating device. Lungs and pleura: Bilateral lung quinn are clear. No pneumothorax or obvious pleural effusion. Cardiomediastinal silhouette: Normal cardiomediastinal silhouette. IMPRESSION: No acute cardiopulmonary process. Critical Power Technician: RUBIO Transcribe Date/Time: Aug 16 2024 5:56P Dictated by : AGUSTINA GRACIA MD This examination was interpreted and the report reviewed and electronically signed by: AGUSTINA GRACIA MD on Aug 16 2024 5:57PM EST [id number] Normal [facility] XR LUMBAR 3V AP/LAT/L5-S1on 08-16-2024 XR LUMBAR 3V AP/LAT/L5-S1 * * *Final Report* * * DATE OF EXAM: Aug 16 2024 5:17PM [id number] - XR LUMBAR 3V AP/LAT/L5-S1 / PROCEDURE REASON: Back pain * * * * Physician Interpretation * * * * HISTORY: Status post fall, back pain TECHNIQUE: Frontal, swimmer's and lateral views of the thoracic spine, frontal, lateral and cone down views of the lumbar spine were obtained. Total 6 images are archived. COMPARISON: Right hip x-rays dated 11/26/2019 RESULT: There is normal thoracic alignment. There is moderate compression deformity of T12, age indeterminate. There is moderate intervertebral disc space loss and endplate sclerosis of the mid and lower thoracic spine. There is right bipolar pacemaker. Counting reference: Lumbosacral junction. For the purposes of this report, L5-S1 is considered the last lumbar type disc space and L4-5 is considered the level of the iliac crest. There is straightening of the lumbar lordosis. There is no acute fracture, dislocation or paraspinous soft tissue swelling. There is moderate to severe intervertebral disc space loss, endplate sclerosis and facet hypertrophy of the mid and lower lumbar spine. The patient is status post right hip replacement, unchanged. IMPRESSION: MODERATE T12 COMPRESSION DEFORMITY, AGE INDETERMINATE. MODERATE TO SEVERE DEGENERATIVE CHANGE OF THE MID AND LOWER LUMBAR SPINE. Critical Power Technician: RUBIO Transcribe Date/Time: Aug 16 2024 7:08P Dictated by : MELITON PEÑA MD This examination was interpreted and the report reviewed and electronically signed by: MELITON PEÑA MD on Aug 16 2024 7:29PM EST [id number] [facility] XR THORACIC 3V AP/LAT/SWIMME RSon 08-16-2024 XR THORACIC 3V AP/LAT/SWIMMER S * * *Final Report* * * DATE OF EXAM: Aug 16 2024 5:17PM RHX [id number] - XR THORACIC 3V AP/LAT/SWIMMERS / PROCEDURE REASON: Back pain * * * * Physician Interpretation * * * * HISTORY: Status post fall, back pain TECHNIQUE: Frontal, swimmer's and lateral views of the thoracic spine, frontal, lateral and cone down views of the lumbar spine were obtained. Total 6 images are archived. COMPARISON: Right hip x-rays dated 11/26/2019 RESULT: There is normal thoracic alignment. There is moderate compression deformity of T12, age indeterminate. There is moderate intervertebral disc space loss and endplate sclerosis of the mid and lower thoracic spine. There is right bipolar pacemaker. Counting reference: Lumbosacral junction. For the purposes of this report, L5-S1 is considered the last lumbar type disc space and L4-5 is considered the level of the iliac crest. There is straightening of the lumbar lordosis. There is no acute fracture, dislocation or paraspinous soft tissue swelling. There is moderate to severe intervertebral disc space loss, endplate sclerosis and facet hypertrophy of the mid and lower lumbar spine. The patient is status post right hip replacement, unchanged. IMPRESSION: MODERATE T12 COMPRESSION DEFORMITY, AGE INDETERMINATE. MODERATE TO SEVERE DEGENERATIVE CHANGE OF THE MID AND LOWER LUMBAR SPINE. Critical Power Technician: PSCB Transcribe Date/Time: Aug 16 2024 7:08P Dictated by : MELITON PEÑA MD This examination was interpreted and the report reviewed and electronically signed by: MELITON PEÑA MD on Aug 16 2024 7:29PM EST [id number] [facility] CNOVon 07-01-2024 CNOV Office Visit (CARMOB ) SAMIA RIVERA ([id number]) 1940 M Date Time Provider Department 07/01/24 7:30 AM REM DEVICE CHECK [facility] MAIN [place] During your visit today, we recorded the following information about you: Allergies As of Date: 07/01/2024 Noted Allergy Reaction MEPERIDINE 04/28/2009 8 - GI Upset 16 - Unknown OXYCODONE 03/31/2024 1 - Mental Status Change Date Reviewed: 04/01/2024 Reviewed by: Roya Brooks MA - Fully Assessed Reason for Visit: Follow Up [171] Primary Visit Diagnosis:SSS (sick sinus syndrome) ([facility]) [I49.5] Prescriptions as of 08/13/2024 - tamsulosin (FLOMAX) 0.4 mg Take 0.4 mg by mouth once daily. - sertraline (ZOLOFT) 25 mg tablet Take 25 mg by mouth once daily. Problem List As Of Date 07/01/2024 Noted Resolved Abnormal gait [R26.9] 03/31/2024 Abscess of forearm [L02.419] 03/31/2024 Altered mental status, unspecified [R41.82] 08/16/2019 Amnesia [R41.3] 03/31/2024 Benign prostatic hyperplasia with lower urinary*08/03/2019 Chronic anxiety [F41.9] 03/31/2024 Chronic back pain greater than 3 months duratio*03/31/2024 Collapsed vertebra, not elsewhere classified, s*09/23/2018 Constipation, unspecified [K59.00] 08/03/2019 Difficulty in walking, not elsewhere classified*08/16/2019 Dysphagia, oropharyngeal phase [R13.12] 08/16/2019 Encounter for other orthopedic aftercare [Z47.8*08/03/2019 Epilepsy, unspecified, not intractable, without*08/03/2019 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/24/2018 Generalized anxiety disorder [F41.1] 09/24/2019 Gastro-esophageal reflux disease without esopha*08/03/2019 Hip pain, right [M25.551] 08/19/2019 History of cardiac pacemaker in situ [Z95.0] 03/31/2024 History of falling [Z91.81] 08/03/2019 History of repair of hip joint [Z98.890] 03/31/2024 Hyperlipidemia, unspecified [E78.5] 08/03/2019 Essential (primary) hypertension [I10] 08/03/2019 Hypertension [I10] 03/31/2024 Impacted cerumen [H61.20] 03/31/2024 Lumbar spondylosis [M47.816] 09/23/2018 Major depressive disorder, recurrent, unspecifi*09/20/2019 Medicare annual wellness visit, subsequent [Z00*03/31/2024 Lipid screening [Z13.220] 03/31/2024 Muscle weakness (generalized) [M62.81] 08/03/2019 Need for assistance with personal care [Z74.1] 08/03/2019 Needs flu shot [Z23] 03/31/2024 Other chronic pain [G89.29] 08/03/2019 Other continuous churn buttermaker (current) drug therapy [Z79.899]08/10/2018 Other symbolic dysfunctions [R48.8] 08/16/2019 Postlaminectomy syndrome, lumbar region [M96.1] 07/28/2018 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] 03/31/2024 Pruritus [L29.9] 03/31/2024 Reactive depression [F32.9] 03/31/2024 Scoliosis [M41.9] 09/23/2018 Rheumatoid arthritis, unspecified (HCC) [M06.9] 08/03/2019 Sick sinus syndrome (HCC) [I49.5] 03/31/2024 Stage 3a chronic kidney disease (HCC) [N18.31] 10/25/2022 Chronic renal insufficiency, stage III (moderat*03/31/2024 Ulcer of lower extremity (HCC) [L97.909] 03/31/2024 Fracture of unspecified part of neck of right f*08/16/2019 Unspecified intracapsular fracture of right fem*08/03/2019 Vertigo [R42] 03/31/2024 Encounter Status:Closed by DEIRDRE IVORY on 08/13/24 [facility] CNOVon 04-01-2024 CNOV Office Visit (CARMOB ) SAMIA RIVERA ([id number]) 1940 M Date Time Provider Department 04/01/24 3:00 PM CURTIS ANNA During your visit today, we recorded the following information about you: Pulse Blood pressure Weight Height 71/minute 119/60 87.1 kg 1.829 m Curtis Anna MD 04/01/2024 3:30 PM Addendum [facility] Department of Cardiovascular Medicine SECTION OF CARDIAC PACING and ELECTROPHYSIOLOGY OUTPATIENT VISIT DATE April 01, 2024 OUTPATIENT VISIT TYPE NEW PRIMARY CARE PHYSICIAN: To use this Smartlink, specify the provider ID whose address you want to display, e.g., .PROVADDR[1 (where 1 is the provider ID). REFERRING PHYSICIAN: Self CHIEF COMPLAINT: Follow up on device, to establish care HISTORY OF PRESENT ILLNESS: Mr. Rivera is a 83 year old male with past medical history of sinus node dysfunction s/p [employer] Joshua dual chamber pacemaker implantation in 2020 OSH, chronic renal insufficiency stage III, gait instability, GERD, HTN, memory loss, neurodermatitis. He is referred to establish care with device management. Patient seen alone, due to some memory impairment, there may be some gaps in the history. Reports no chest pain and no breathing issues Gets lightheadedness if change postural quickly Has had episode of fall recently where lost balance at home, normally uses a walker Reports some memory decline over the years and has become a real problem for him. Lives at home with Gets home help with cleaning No smoking no alcohol. PAST CARDIAC HISTORY: PAST MEDICAL HISTORY Diagnosis Date Chronic anxiety Chronic back pain Chronic pruritus Chronic renal insufficiency, stage III (moderate) (HCC) Gait instability GERD (gastroesophageal reflux disease) HTN (hypertension) Memory loss Neurodermatitis Presence of cardiac pacemaker 11/06/2020 [place] Situational depression SSS (sick sinus syndrome) (HCC) Vertigo PAST SURGICAL HISTORY Procedure Laterality Date (NEW IMPLANT DUAL CHAMBER PPM) INSERTION OF A NEW PERMANENT PACEMAKER W/ INSERTION OF NEW TRANSVENOUS ELECTRODE(S) ATRIAL AND VENTRICULAR Right 11/06/[address] [facility] ARTHROPLASTY HEMIARTHROPLASTY Right 08/01/2019 CHOLECYSTECTOMY 1983 CYST/MOLE REMOVAL 2018 on tailbone LAPAROSCOPY, ORCHIOPEXY 1966 PERCUTANEOUS LUMBAR DISKECTOMY 1990 SEPTOPLASTY 1985 TONSILLECTOMY AND ADENOIDECTOMY AGE 10/> 1971 SOCIAL HISTORY Social History Tobacco Use Smoking status: Never Passive exposure: Never Smokeless tobacco: Never Vaping Use Vaping status: Never Used Substance Use Topics Alcohol use: Not Currently Drug use: Never FAMILY HISTORY Family history unknown: Yes ALLERGIES: ALLERGIES Allergen Reactions Meperidine GI Upset, Unknown Oxycodone Mental Status Change MEDICATIONS: tamsulosin (FLOMAX) 0.4 mg Take 0.4 mg by mouth once daily. sertraline (ZOLOFT) 25 mg tablet Take 25 mg by mouth once daily. PHYSICAL EXAMINATION: BP 119/60 (BP Site: Left Arm, BP Position: Sitting, BP Cuff Size: Regular Adult) Pulse 71 Ht 182.9 cm (6') Wt 87.1 kg (192 lb) SpO2 98% BMI 26.04 kg/m? Alert comfortable Soft distant HS Right sided pacemaker - prominent but site looks good Calves SNT no pitting edema CARDIOVASCULAR MEDICINE TESTING: Device Check 04/01/2024:Patient's device was interrogated for medical necessity in the office today by my staff. There was normal device function. Approximately 7.3 years until [facility]MI[facility]. There were normal/stable sensing/threshold/impedance values. Ap 65 %, Traffic Control Officer 22 %. There was 1 episode of Atrial Fibrillation lasting 4 seconds on 02/24/2024. There were no ventricular arrhythmias detected. OK shaped histograms. No permanent changes were made. Electrocardiogram: SR 69bpm I have personally reviewed the Electrocardiogram. Assessment IMPRESSION: Mr. Rivera is a 83 year old male with history of sinus node dysfunction s/p dual chamber ([employer] Joshua) pacemaker implantation in 2020 OSH. Device check today shows 7.3 years remaining, AP 65% and 3RD GRADE TEACHER 22%with satisfactory pacing parameters. PLAN AND RECOMMENDATIONS: Annual clinic FU Echo and CXR at baseline Recommended patient to establish care with a primary physician Curtis Anna, [facility], FRACP Staff Embedded Software Manager, Cardiac Electrophysiology and Pacing Section Department of Cardiovascular Medicine Heart, Vascular and Thoracic [facility] Allergies As of Date: 04/01/2024 Noted Allergy Reaction MEPERIDINE 04/28/2009 8 - GI Upset 16 - Unknown OXYCODONE 03/31/2024 1 - Mental Status Change Date Reviewed: 04/01/2024 Reviewed by: Roya Brooks MA - Fully Assessed Reason for Visit: New Patient [172] Cmt: Referral to establish care Primary Visit Diagnosis:Pacemaker [Z95.0] Other Visit Diagnoses:Sick sinus syndrome (HCC) [I49 (more content not included)... [facility] CNOV Office Visit (CARMOB ) SAMIA RIVERA ([id number]) 1940 M Date Time Provider Department 04/01/24 3:00 PM DEVICE CLINIC [facility] MAIN [place] During your visit today, we recorded the following information about you: Allergies As of Date: 04/01/2024 Noted Allergy Reaction MEPERIDINE 04/28/2009 8 - GI Upset 16 - Unknown OXYCODONE 03/31/2024 1 - Mental Status Change Date Reviewed: 04/01/2024 Reviewed by: Roya Brooks MA - Fully Assessed Reason for Visit: Follow Up [171] Primary Visit Diagnosis:SSS (sick sinus syndrome) ([facility]) [I49.5] Prescriptions as of 04/02/2024 - tamsulosin (FLOMAX) 0.4 mg Take 0.4 mg by mouth once daily. - sertraline (ZOLOFT) 25 mg tablet Take 25 mg by mouth once daily. Problem List As Of Date 04/01/2024 Noted Resolved Abnormal gait [R26.9] 03/31/2024 Abscess of forearm [L02.419] 03/31/2024 Altered mental status, unspecified [R41.82] 08/16/2019 Amnesia [R41.3] 03/31/2024 Benign prostatic hyperplasia with lower urinary*08/03/2019 Chronic anxiety [F41.9] 03/31/2024 Chronic back pain greater than 3 months duratio*03/31/2024 Collapsed vertebra, not elsewhere classified, s*09/23/2018 Constipation, unspecified [K59.00] 08/03/2019 Difficulty in walking, not elsewhere classified*08/16/2019 Dysphagia, oropharyngeal phase [R13.12] 08/16/2019 Encounter for other orthopedic aftercare [Z47.8*08/03/2019 Epilepsy, unspecified, not intractable, without*08/03/2019 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/24/2018 Generalized anxiety disorder [F41.1] 09/24/2019 Gastro-esophageal reflux disease without esopha*08/03/2019 Hip pain, right [M25.551] 08/19/2019 History of cardiac pacemaker in situ [Z95.0] 03/31/2024 History of falling [Z91.81] 08/03/2019 History of repair of hip joint [Z98.890] 03/31/2024 Hyperlipidemia, unspecified [E78.5] 08/03/2019 Essential (primary) hypertension [I10] 08/03/2019 Hypertension [I10] 03/31/2024 Impacted cerumen [H61.20] 03/31/2024 Lumbar spondylosis [M47.816] 09/23/2018 Major depressive disorder, recurrent, unspecifi*09/20/2019 Medicare annual wellness visit, subsequent [Z00*03/31/2024 Lipid screening [Z13.220] 03/31/2024 Muscle weakness (generalized) [M62.81] 08/03/2019 Need for assistance with personal care [Z74.1] 08/03/2019 Needs flu shot [Z23] 03/31/2024 Other chronic pain [G89.29] 08/03/2019 Other continuous churn buttermaker (current) drug therapy [Z79.899]08/10/2018 Other symbolic dysfunctions [R48.8] 08/16/2019 Postlaminectomy syndrome, lumbar region [M96.1] 07/28/2018 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] 03/31/2024 Pruritus [L29.9] 03/31/2024 Reactive depression [F32.9] 03/31/2024 Scoliosis [M41.9] 09/23/2018 Rheumatoid arthritis, unspecified (HCC) [M06.9] 08/03/2019 Sick sinus syndrome (HCC) [I49.5] 03/31/2024 Stage 3a chronic kidney disease (HCC) [N18.31] 10/25/2022 Chronic renal insufficiency, stage III (moderat*03/31/2024 Ulcer of lower extremity (HCC) [L97.909] 03/31/2024 Fracture of unspecified part of neck of right f*08/16/2019 Unspecified intracapsular fracture of right fem*08/03/2019 Vertigo [R42] 03/31/2024 Encounter Status:Closed by DEIRDRE IVORY on 04/02/24 [facility] XR CHEST 2V FRONTAL/LATon XR CHEST 2V FRONTAL/LAT * * *Final Report* * * DATE OF EXAM: Apr 01 2024 4:21PM RHX [id number] - XR CHEST 2V FRONTAL/LAT / PROCEDURE REASON: Pacemaker * * * * Physician Interpretation * * * * EXAMINATION: CHEST RADIOGRAPH (2 VIEW FRONTAL and LATERAL) CLINICAL HISTORY: Pacemaker MQ: [id number] EXAM DATE/TIME: 04/01/2024 4:21 PM COMPARISON: Portable chest 08/12/2019, 2 view chest 07/08/2019. RESULT: Lines, tubes, and devices: Dual-lead pacemaker on the right with leads projecting over the right atrium and right ventricle. Lungs and pleura: The patient was unable to raise the arms for the lateral view, limiting detail.. Mild scarring in the lingula. No consolidation. No pleural effusion, congestion or pneumothorax. Cardiomediastinal silhouette: Normal cardiomediastinal silhouette. Bones and soft tissues: Stable chronic compression deformity in the lower thoracic spine. IMPRESSION: No acute radiographic abnormality. Critical Power Technician: PSCB Transcribe Date/Time: Apr 01 2024 4:30P Dictated by : CAROLINE VASQUEZ MD This examination was interpreted and the report reviewed and electronically signed by: CAROLINE VASQUEZ MD on Apr 01 2024 4:33PM EST [id number] [facility] 25(OH)D3 [facility]-ncon 2023 25-hydroxyvita min D3 [Mass/Vol] 32.4 ng/mL Normal 30.0-100.0 [facility] Comment on above: Order Comment: Specimen Type: BLOOD SPEC IMEN Ordering Facility: [facility] Address: [address] [place] [address] Result Comment: Defi ciency\X09\Less than 20 ng/mL Insufficiency\X09\20 - Less than 30 ng/mL Sufficiency\X09\30 - 100 ng/mL Performed By: #### 1 989-3 #### [facility] CLIA [id number] [address] [place] [address] [place] Basic metabolic 2000 panelon 03-15-2024 Anion gap [Moles/Vol] 7 mmol/L Normal 5-16 [facility] Comment on above: Order Comment: Specimen Type: BLOOD SPEC IMEN Ordering Facility: [facility] Address: [address] [place] [address] Performed By: #### 3 084-1, 27304-28, 89851-9 #### [facility] CLIA [id number] [address] [place] [address] [place] Calcium [Mass/Vol] 10.2 mg/dL Normal 8.5-10.5 [facility] Comment on above: Order Comment: Specimen Type: BLOOD SPEC IMEN Ordering Facility: [facility] Address: [address] [place] [address] Performed By: #### 3 084-1, 2730-11, 16417-6 #### [facility] CLIA [id number] [address] [place] [address] [place] Chloride [Moles/Vol] 112 mmol/L High 98-107 [facility] Comment on above: Order Comment: Specimen Type: BLOOD SPEC IMEN Ordering Facility: [facility] Address: [address] [place] [address] Performed By: #### 3 084-1, 27304-28, 76870-7 #### [facility] CLIA [id number] [address] [place] [address] [place] CO2 [Moles/Vol] 21 mmol/L Normal 21-32 [facility] Comment on above: Order Comment: Specimen Type: BLOOD SPEC IMEN Ordering Facility: [facility] Address: [address] [place] [address] Performed By: #### 3 084-1, 27304-28, 54642-8 #### [facility] CLIA [id number] [address] [place] [address] [place] Creatinine [Mass/Vol] 1.56 mg/dL High 0.50-1.40 [facility] Comment on above: Order Comment: Specimen Type: BLOOD SPEC IMEN Ordering Facility: [facility] Address: [address] [place] [address] Result Comment: Cecy ents receiving either N-Acetylcysteine (NAC) or Metamizole prior to venipuncture, may have falsely depressed results. Performed By: #### 3 084-1, 2730-11, #### [facility] CLIA [id number] [address] [place] [address] Creatinine and Glomerular filtration rate.predicted panel (S/P/Bld) 43 mL/min/1.73m??? Low >=60 [facility] Comment on above: Order Comment: Specimen Type: BLOOD SPEC IMEN Ordering Facility: [facility] Address: [address] [place] [address] Result Comment: Promise mated Glomerular Filtration Rate (eGFR) is calculated using the 2020 CKD-EPI creatinine equation. This equation utilizes serum creatinine, sex, and age as parameters. The creatinine assay has traceable calibration to isotope dilution-mass spectrometry. Refer to KDIGO guidelines for clinical interpretation. In patients with unstable renal function, e.g. those with acute kidney injury, the eGFR may not accurately reflect actual GFR. Performed By: #### 3 084-1, 2730-11, 03057-9 #### [facility] CLIA [id number] [address] [place], [place] [id number] [place] Glucose [Mass/Vol] 89 mg/dL Normal 70-100 [facility] Comment on above: Order Comment: Specimen Type: BLOOD SPEC IMEN Ordering Facility: [facility] Address: [address] [place] [address] Result Comment: The [place] Diabetes [employer] (ADA) provides guidance for cutoff values for fasting glucose and random glucose. The ADA defines fasting as no caloric intake for at least 8 hours. Fasting plasma glucose results between 100 to 125 mg/dL indicate increased risk for diabetes (prediabetes). Fasting plasma glucose results greater than or equal to 126 mg/dL meet the criteria for diagnosis of diabetes. In the absence of unequivocal hyperglycemia, results should be confirmed by repeat testing. In a patient with classic symptoms of hyperglycemia or hyperglycemic crisis, random plasma glucose results greater than or equal to 200 mg/dL meet the criteria for diagnosis of diabetes. Reference: Standards of Medical Care in Diabetes 2016, [place] [employer]. Diabetes Care. 2016.39(Suppl 1). Results may be falsely elevated after the administration of Sulfapyridine. Results may be falsely depressed after the administration of Sulfasalazine. Performed By: #### 3 084-1, 273-, 05723-7 #### [facility] CLIA [id number] [address] [place] [address] [place] Potassium [Moles/Vol] 5.0 mmol/L Normal 3.5-5.1 [facility] Comment on above: Order Comment: Specimen Type: BLOOD SPEC IMEN Ordering Facility: [facility] Address: [address] [place] [address] Performed By: #### 3 084-1, 2738, 71794-8 #### [facility] CLIA [id number] [address] [place] [address] [place] Sodium [Moles/Vol] 140 mmol/L Normal 136-145 [facility] Comment on above: Order Comment: Specimen Type: BLOOD SPEC IMEN Ordering Facility: [facility] Address: [address] [place] [address] Performed By: #### 3 084-1, 2731-8, 45933-2 #### [facility] CLIA [id number] [address] [place] [address] [place] Urea nitrogen [Mass/Vol] 34 mg/dL High 11-13 [facility] Comment on above: Order Comment: Specimen Type: BLOOD SPEC IMEN Ordering Facility: [facility] Address: [address] [place] [address] Performed By: #### 3 084-1, 2731-8, 01428-6 #### [facility] CLIA [id number] [address] [place] [address] [place] CBC W Auto Differential pane l (Bld)on 03-15-2024 Basophils (Bld) [#/Vol] 0.04 10*3/uL Normal <0.11 [facility] Comment on above: Order Comment: Specimen Type: BLOOD SPEC IMEN Ordering Facility: [facility] Address: [address] [place] [address] Performed By: #### 5 7021-8 #### [facility] CLIA [id number] [facility] [address] [place] [address] [place] Basophils/100 WBC (Bld) 0.7 % Normal [facility] Comment on above: Order Comment: Specimen Type: BLOOD SPEC IMEN Ordering Facility: [facility] Address: [address] [place] [address] Performed By: #### 5 7021-8 #### [facility] CLIA [id number] [address] [facility] [address] [place] [address] [place] Differential cell count method Nom (Bld) Auto Normal [facility] Comment on above: Order Comment: Specimen Type: BLOOD SPEC IMEN Ordering Facility: [facility] Address: [address] [place] [address] Performed By: #### 5 7021-8 #### [facility] CLIA [id number] [address] [facility] [address] [place] [address] [place] Eosinophils (Bld) [#/Vol] 0.13 10*3/uL Normal <0.46 [facility] Comment on above: Order Comment: Specimen Type: BLOOD SPEC IMEN Ordering Facility: [facility] Address: [address] [place] [address] Performed By: #### 5 7021-8 #### [facility] CLIA [id number] [address] [facility] [address] [place] [address] [place] Eosinophils/10 0 WBC (Bld) 2.4 % Normal [facility] Comment on above: Order Comment: Specimen Type: BLOOD SPEC IMEN Ordering Facility: [facility] Address: [address] [place] [address] Performed By: #### 5 7021-8 #### [facility] CLIA [id number] [address] [place] [address] [place] [address] [place] Erythrocyte distribution width (RBC) [Ratio] 13.9 % Normal 11.5-15.0 [facility] Comment on above: Order Comment: Specimen Type: BLOOD SPEC IMEN Ordering Facility: [facility] Address: [address] [place] [address] Performed By: #### 5 7021-8 #### [facility] CLIA [id number] [address] [place] [address] [place] [address] [place] Hematocrit (Bld) [Volume fraction] 36.1 % Low 39.0-51.0 [facility] Comment on above: Order Comment: Specimen Type: BLOOD SPEC IMEN Ordering Facility: [facility] Address: [address] [place] [address] Performed By: #### 5 7021-8 #### [facility] CLIA [id number] [address] [place] [address] [place], [place] [id number] [place] Hemoglobin (Bld) [Mass/Vol] 12.1 g/dL Low 13.0-17.0 [facility] Comment on above: Order Comment: Specimen Type: BLOOD SPEC IMEN Ordering Facility: [facility] Address: [address] [place] [address] Performed By: #### 5 7021-8 #### [facility] CLIA [id number] [address] [place] [address] [place] [address] [place] Immature granulocytes (Bld) [#/Vol] 10*3/uL Normal <0.10 [facility] Comment on above: Order Comment: Specimen Type: BLOOD SPEC IMEN Ordering Facility: [facility] Address: [address] [place] [address] Performed By: #### 5 7021-8 #### [facility] CLIA [id number] [address] [place] [address] [place] [address] [place] Immature granulocytes/1 00 WBC (Bld) 0.2 % Normal [facility] Comment on above: Order Comment: Specimen Type: BLOOD SPEC IMEN Ordering Facility: [facility] Address: [address] [place] [address] Performed By: #### 5 7021-8 #### [facility] CLIA [id number] [address] [place] [address] [place] Lymphocytes (Bld) [#/Vol] 1.56 10*3/uL Normal 1.00-4.00 [facility] Comment on above: Order Comment: Specimen Type: BLOOD SPEC IMEN Ordering Facility: [facility] Address: [address] [place] [address] Performed By: #### 5 7021-8 #### [facility] CLIA [id number] [address] [place] [address] [place] [address] [place] Lymphocytes/10 0 WBC (Bld) 28.2 % Normal [facility] Comment on above: Order Comment: Specimen Type: BLOOD SPEC IMEN Ordering Facility: [facility] Address: [address] [place] [address] Performed By: #### 5 7021-8 #### [facility] IA [id number] [address] [place], [place] [address] [place] MCH (RBC) [Entitic mass] 32.2 pg Normal 26.0-34.0 [facility] Comment on above: Order Comment: Specimen Type: BLOOD SPEC IMEN Ordering Facility: [facility] Address: [address] [place] [address] Performed By: #### 5 7021-8 #### [facility] CLIA [id number] [address] [place], [place] [address] [place] MCHC (RBC) [Mass/Vol] 33.5 g/dL Normal 30.5-36.0 [facility] Comment on above: Order Comment: Specimen Type: BLOOD SPEC IMEN Ordering Facility: [facility] Address: [address] [place] [address] Performed By: #### 5 7021-8 #### [facility] CLIA [id number] [address] [place] [address] [place] MCV (RBC) [Entitic vol] 96.0 fL Normal 80.0-100.0 [facility] Comment on above: Order Comment: Specimen Type: BLOOD SPEC IMEN Ordering Facility: [facility] Address: [address] [place] [address] Performed By: #### 5 7021-8 #### [facility] CLIA [id number] [address] [place] [address] [place] Monocytes (Bld) [#/Vol] 0.63 10*3/uL Normal <0.87 [facility] Comment on above: Order Comment: Specimen Type: BLOOD SPEC IMEN Ordering Facility: [facility] Address: [address] [place] [address] Performed By: #### 5 7021-8 #### [facility] CLIA [id number] [address] [place] [address] [place] [address] [place] Monocytes/100 WBC (Bld) 11.4 % Normal [facility] Comment on above: Order Comment: Specimen Type: BLOOD SPEC IMEN Ordering Facility: [facility] Address: [address] [place] [address] Performed By: #### 5 7021-8 #### [facility] CLIA [id number] [address] [facility] [address] [place] [address] [place] Neutrophils (Bld) [#/Vol] 3.16 10*3/uL Normal 1.45-7.50 [facility] Comment on above: Order Comment: Specimen Type: BLOOD SPEC IMEN Ordering Facility: [facility] Address: [address] [place] [address] Performed By: #### 5 7021-8 #### [facility] CLIA [id number] [address] [facility] [address] [place] [address] [place] Neutrophils/10 0 WBC (Bld) 57.1 % Normal [facility] Comment on above: Order Comment: Specimen Type: BLOOD SPEC IMEN Ordering Facility: [facility] Address: [address] [place] [address] Performed By: #### 5 7021-8 #### [facility] [id number] [address] [place] [address] [place], [place] [address] [place] Platelet mean volume (Bld) [Entitic vol] 8.9 fL Low 9.0-12.7 [facility] Comment on above: Order Comment: Specimen Type: BLOOD SPEC IMEN Ordering Facility: [facility] Address: [address] [place] [address] Performed By: #### 5 7021-8 #### [facility] CLIA [id number] [address] [place] [address] [place] [address] [place] Platelets (Bld) [#/Vol] 135 10*3/uL Low 150-400 [facility] Comment on above: Order Comment: Specimen Type: BLOOD SPEC IMEN Ordering Facility: [facility] Address: [address] [place] [address] Performed By: #### 5 7021-8 #### [facility] CLIA [id number] [address] [place] [address] [place] [address] [place] RBC (Bld) [#/Vol] 3.76 10*6/uL Low 4.20-6.00 [facility] Comment on above: Order Comment: Specimen Type: BLOOD SPEC IMEN Ordering Facility: [facility] Address: [address] [place] [address] Performed By: #### 5 7021-8 #### [facility] CLIA [id number] [address] [facility] [place] [facility] [address] [place] [address] [place] WBC (Bld) [#/Vol] 5.53 10*3/uL Normal 3.70-11.00 [facility] Comment on above: Order Comment: Specimen Type: BLOOD SPEC IMEN Ordering Facility: [facility] Address: [address] [place] [address] Performed By: #### 5 7021-8 #### [facility] CLIA [id number] [address] [facility] [place] [facility] [address] [place] [address] [place] PTH-Intact SerPl-mCncon - Parathyrin.int act [Mass/Vol] 81 pg/mL High 14-72 [facility] Comment on above: Order Comment: Specimen Type: BLOOD SPEC IMEN Ordering Facility: [facility] Address: [address] [place] [address] Performed By: #### 3 084-1, 2730-11, 28838-6 #### [facility] CLIA [id number] [address] [place] [address] [place] Urate SerPl-mCncon 4 Urate [Mass/Vol] 6.1 mg/dL High 2.6-6.0 [facility] Comment on above: Order Comment: Specimen Type: BLOOD SPEC IMEN Ordering Facility: [facility] Address: [address] [place] [address] Result Comment: Cecy ents receiving Metamizole prior to venipuncture, may have falsely depressed results. Performed By: #### 3 084-1, 27304-28, 56154-2 #### [facility] CLIA [id number] [address] [place] [address] [place] .Auto Diffon 02-18-2024 Basophil, Absolute 0.0 10 3/mcL Normal 0.0-0.3 [facility] Comment on above: Performed By: #### ADIFF, CBC, GFR, LIPI D, BMP, HFP, B12, ANEU #### [address] [address] Basophils/100 WBC (Bld) 0.9 % Normal 0.0-2.5 [facility] Comment on above: Performed By: #### ADIFF, CBC, GFR, LIPI D, BMP, HFP, B12, ANEU #### [address] [address] Eosinophil, Absolute 0.1 10 3/mcL Normal 0.0-0.7 [facility] Comment on above: Performed By: #### ADIFF, CBC, GFR, LIPI D, BMP, HFP, B12, ANEU #### [address] [address] Eosinophils/10 0 WBC (Bld) 1.9 % Normal 0.0-6.0 [facility] Comment on above: Performed By: #### ADIFF, CBC, GFR, LIPI D, BMP, HFP, B12, ANEU #### [address] [address] Lymphocyte, Absolute 1.9 10 3/mcL Normal 0.9-4.3 [facility] Comment on above: Performed By: #### ADIFF, CBC, GFR, LIPI D, BMP, HFP, B12, ANEU #### [address] [address] Lymphocytes/10 0 WBC (Bld) 35.5 % Normal 20.0-40.0 [facility] Comment on above: Performed By: #### ADIFF, CBC, GFR, LIPI D, BMP, HFP, B12, ANEU #### [address] [address] Monocyte, Absolute 0.5 10 3/mcL Normal 0.1-1.4 [facility] Comment on above: Performed By: #### ADIFF, CBC, GFR, LIPI D, BMP, HFP, B12, ANEU #### [address] [address] Monocytes/100 WBC (Bld) 9.6 % Normal 2.0-13.0 [facility] Comment on above: Performed By: #### ADIFF, CBC, GFR, LIPI D, BMP, HFP, B12, ANEU #### [place] [address] [place] [address] Neutrophils/10 0 WBC (Bld) 52.1 % Normal 50.0-75.0 [facility] Comment on above: Performed By: #### ADIFF, CBC, GFR, LIPI D, BMP, HFP, B12, ANEU #### [address] [address] .GFRon 02-18-2024 GFR 47 ml/min/1.73sqm [facility] Comment on above: Result Comment: GFR Population mean for , Non- Americans Ages 20-29 = 116 mL/min/1.73 sq.m. Ages 30-39 = 107 mL/min/1.73 sq.m. Ages 40-49 = 99 mL/min/1.73 sq.m. Ages 50-59 = 93 mL/min/1.73 sq.m. Ages 60-69 = 85 mL/min/1.73 sq.m. Ages 70+ = 75 mL/min/1.73 sq.m. Chronic Kidney Disease: Less than 60 mL/min/1.73 square meters End Stage Renal Disease: Less than 15 mL/min/1.73 square meters Performed By: #### A DIFF, CBC, GFR, LIPID, BMP, HFP, B12, ANEU #### [address] [address] GFR Non- 38 ml/min/1.73sqm [facility] Comment on above: Result Comment: GFR Population mean for , Non- Americans Ages 20-29 = 116 mL/min/1.73 sq.m. Ages 30-39 = 107 mL/min/1.73 sq.m. Ages 40-49 = 99 mL/min/1.73 sq.m. Ages 50-59 = 93 mL/min/1.73 sq.m. Ages 60-69 = 85 mL/min/1.73 sq.m. Ages 70+ = 75 mL/min/1.73 sq.m. Chronic Kidney Disease: Less than 60 mL/min/1.73 square meters End Stage Renal Disease: Less than 15 mL/min/1.73 square meters Performed By: #### A DIFF, CBC, GFR, LIPID, BMP, HFP, B12, ANEU #### [place] [id number] .NEUABSon 02-18-2024 Neutrophil, Absolute 2.8 10 3/mcL Normal 2.3-8.1 [facility] Comment on above: Performed By: #### ADIFF, CBC, GFR, LIPI D, BMP, HFP, B12, ANEU #### [place] [address] B12on 02-18-2024 Cobalamin (Vitamin B12) [Mass/Vol] 535 pg/mL Normal 211-911 [facility] Comment on above: Performed By: #### ADIFF, CBC, GFR, LIPI D, BMP, HFP, B12, ANEU #### [place] [address] BMPon 02-18-2024 BUN/Creatinine Ratio 23.5 ratio High 10.0-22.0 [facility] Comment on above: Performed By: #### ADIFF, CBC, GFR, LIPI D, BMP, HFP, B12, ANEU #### [address] [address] Calcium [Mass/Vol] 9.9 mg/dL Normal 8.7-10.4 [facility] Comment on above: Performed By: #### ADIFF, CBC, GFR, LIPI D, BMP, HFP, B12, ANEU #### [address] [address] Chloride [Moles/Vol] 110 mmol/L Normal 98-110 [facility] Comment on above: Performed By: #### ADIFF, CBC, GFR, LIPI D, BMP, HFP, B12, ANEU #### [place] [id number] CO2 [Moles/Vol] 22 mmol/L Normal 22-32 [facility] Comment on above: Performed By: #### ADIFF, CBC, GFR, LIPI D, BMP, HFP, B12, ANEU #### [address] [address] Creatinine [Mass/Vol] 1.70 mg/dL High 0.60-1.40 [facility] Comment on above: Result Comment: Testing performed on Adype CH analyzer using enzymatic creatinine methodology. Performed By: #### A DIFF, CBC, GFR, LIPID, BMP, HFP, B12, ANEU #### [address] [address] Electrolyte Balance 6.0 mEq/L Normal 4.0-15.0 [facility] Comment on above: Performed By: #### ADIFF, CBC, GFR, LIPI D, BMP, HFP, B12, ANEU #### [address] [address] Glucose [Mass/Vol] 96 mg/dL Normal 82-115 [facility] Comment on above: Performed By: #### ADIFF, CBC, GFR, LIPI D, BMP, HFP, B12, ANEU #### [address] [address] Potassium [Moles/Vol] 5.4 mmol/L High 3.5-5.0 [facility] Comment on above: Performed By: #### ADIFF, CBC, GFR, LIPI D, BMP, HFP, B12, ANEU #### [address] [address] Sodium [Moles/Vol] 138 mmol/L Normal 136-145 [facility] Comment on above: Performed By: #### ADIFF, CBC, GFR, LIPI D, BMP, HFP, B12, ANEU #### [address] [address] Urea nitrogen [Mass/Vol] 40.0 mg/dL High 8.0-22.0 [facility] Comment on above: Performed By: #### ADIFF, CBC, GFR, LIPI D, BMP, HFP, B12, ANEU #### [address] [address] CBCon 02-18-2024 Erythrocyte distribution width (RBC) [Ratio] 14.5 % Normal 11.5-15.5 [facility] Comment on above: Performed By: #### ADIFF, CBC, GFR, LIPI D, BMP, HFP, B12, ANEU #### [place] [address] Hematocrit (Bld) [Volume fraction] 34.4 % Low 40.0-52.0 [facility] Comment on above: Performed By: #### ADIFF, CBC, GFR, LIPI D, BMP, HFP, B12, ANEU #### [place] [address] Hgb 11.6 G/dL Low 13.0-17.5 [facility] Comment on above: Performed By: #### ADIFF, CBC, GFR, LIPI D, BMP, HFP, B12, ANEU #### [place] [address] MCH (RBC) [Entitic mass] 32.5 pg Normal 27.0-33.0 [facility] Comment on above: Performed By: #### ADIFF, CBC, GFR, LIPI D, BMP, HFP, B12, ANEU #### [place] [address] MCHC 33.7 G/dL Normal 32.0-36.0 [facility] Comment on above: Performed By: #### ADIFF, CBC, GFR, LIPI D, BMP, HFP, B12, ANEU #### [place] [id number] MCV (RBC) [Entitic vol] 96.6 fL Normal 81.0-100.0 [facility] Comment on above: Performed By: #### ADIFF, CBC, GFR, LIPI D, BMP, HFP, B12, ANEU #### [place] [address] Platelet 166 10 3/mcL Normal 150-450 [facility] Comment on above: Performed By: #### ADIFF, CBC, GFR, LIPI D, BMP, HFP, B12, ANEU #### [place] [address] Platelet mean volume (Bld) [Entitic vol] 7.9 fL Normal 6.4-10.5 [facility] Comment on above: Performed By: #### ADIFF, CBC, GFR, LIPI D, BMP, HFP, B12, ANEU #### [place] [address] RBC 3.56 10 6/mcL Low 4.50-6.00 [facility] Comment on above: Performed By: #### ADIFF, CBC, GFR, LIPI D, BMP, HFP, B12, ANEU #### [place] [address] WBC 5.3 10 3/mcL Normal 4.5-10.8 [facility] Comment on above: Performed By: #### ADIFF, CBC, GFR, LIPI D, BMP, HFP, B12, ANEU #### [place] [address] HFPon 02-18-2024 Bili Indirect 0.3 mg/dL Normal 0.1-10.0 [facility] Comment on above: Performed By: #### ADIFF, CBC, GFR, LIPI D, BMP, HFP, B12, ANEU #### [place] [address] Albumin Level 3.7 G/dL Normal 3.2-4.8 [facility] Comment on above: Performed By: #### ADIFF, CBC, GFR, LIPI D, BMP, HFP, B12, ANEU #### [place] [address] Albumin/Globul in [Mass ratio] 1.1 {ratio} Normal 0.9-1.6 [facility] Comment on above: Performed By: #### ADIFF, CBC, GFR, LIPI D, BMP, HFP, B12, ANEU #### [place] [address] ALP [Catalytic activity/Vol] 85 U/L Normal 38-126 [facility] Comment on above: Performed By: #### ADIFF, CBC, GFR, LIPI D, BMP, HFP, B12, ANEU #### [place] [address] ALT [Catalytic activity/Vol] 14 U/L Normal 12-55 [facility] Comment on above: Performed By: #### ADIFF, CBC, GFR, LIPI D, BMP, HFP, B12, ANEU #### [place] [address] AST [Catalytic activity/Vol] 23 U/L Normal 8-34 [facility] Comment on above: Performed By: #### ADIFF, CBC, GFR, LIPI D, BMP, HFP, B12, ANEU #### [place] [address] Bili Direct 0.1 mg/dL Normal 0.0-0.4 [facility] Comment on above: Result Comment: Use of this assay is not recommended for patients undergoing treatment with eltrombopag due to the potential for falsely elevated results. Performed By: #### A DIFF, CBC, GFR, LIPID, BMP, HFP, B12, ANEU #### [place] [address] Bili Total 0.40 mg/dL Normal 0.20-1.20 [facility] Comment on above: Result Comment: Use of this assay is not recommended for patients undergoing treatment with eltrombopag due to the potential for falsely elevated results. Performed By: #### A DIFF, CBC, GFR, LIPID, BMP, HFP, B12, ANEU #### [place] [address] Globulin 3.3 G/dL Normal 1.5-3.8 [facility] Comment on above: Performed By: #### ADIFF, CBC, GFR, LIPI D, BMP, HFP, B12, ANEU #### [place] [address] Total Protein 7.0 G/dL Normal 5.7-8.2 [facility] Comment on above: Performed By: #### ADIFF, CBC, GFR, LIPI D, BMP, HFP, B12, ANEU #### [place] [address] LIPIDon 02-18-2024 Cholesterol [Mass/Vol] 186 mg/dL Normal 50-199 [facility] Comment on above: Result Comment: Cholesterol Reference In terval: Less than 200 Desirable 200-239 Borderline high risk 240 and above High risk Performed By: #### A DIFF, CBC, GFR, LIPID, BMP, HFP, B12, ANEU #### [address] [address] Cholesterol in HDL [Mass/Vol] 46 mg/dL Normal 40-59 [facility] Comment on above: Performed By: #### ADIFF, CBC, GFR, LIPI D, BMP, HFP, B12, ANEU #### [address] [address] Cholesterol in LDL [Mass/Vol] 121 mg/dL Normal 0-129 [facility] Comment on above: Performed By: #### ADIFF, CBC, GFR, LIPI D, BMP, HFP, B12, ANEU #### [address] [address] Triglyceride [Mass/Vol] 97 mg/dL Normal 3-149 [facility] Comment on above: Performed By: #### ADIFF, CBC, GFR, LIPI D, BMP, HFP, B12, ANEU #### [address] [address] Justine 11-21-2023 CNPN Telephone (CARMOB) SAMIA RIVERA ([id number]) 1940 M Date Time Provider Department 11/21/23 GLADIS GONZALEZ During your visit today, we recorded the following information about you: Stephanie Irvin 11/21/2023 8:48 AM Signed LMOM, for patient to call back, he had left a the day before about needin g a pacer check.Stephanie Iraheta 11/21/2023 10:19 AM Signed 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 Please get his records so he can be scheduled with .Stephanie Irvin ThompsonDanni 11/27/2023 3:47 PM Signed Requested records from [facility]. Arnulfo Thompsonjayden [place] 12/16/2023 8:47 AM Signed Patient left a voicemail to schedule an appointment. Will request records again. JayArnulfojayden [place] 12/16/2023 9:21 AM Signed Faxed 2nd request. Danni Thompson Ge 12/30/2023 1:16 PM Signed Received records from [facility]. Scanned into chart and will place in bin for review. Jt Ardon RN 12/30/2023 3:[address] Pang has reviewed this referral. Would you please offer Mr. Rivera an appointment with Dr. Pang on Friday06/07/2024 at 1030 (double book)? If he accepts this appointment, please add him to the [facility] schedule, as well. Thank you, Jt Ardon RN December 30, 2023 3:54 PM Serena Grullon 12/31/2023 10:09 AM Signed LMOM for the patient to confirm. Serena Coelho 01/01/2024 8:13 AM Signed LMOM X2. Agustina Bonds 01/01/2024 9:59 AM Signed Pt is calling asked the multicraft operator to call back the first of the year they dont have a calendar for May Serena Crockett 01/01/2024 10:17 AM Signed Ok Serena Grullon Allergies As of Date: 11/21/2023 (Not on File) Date Reviewed: Never Reviewed Reason for Visit: Appointment [186] Problem List As Of Date: 11/21/2023 (None) Encounter Status:Closed by STEPHANIE IRVIN on 11/21/23 [facility] .Auto Diffon 03-02-2023 Basophil, Absolute 0.0 10 3/mcL Normal 0.0-0.3 [facility] ([place]) Comment on above: Performed By: #### GFR, BMP #### [address] [address] Basophils/100 WBC (Bld) 0.6 % Normal 0.0-2.5 [facility] ([place]) Comment on above: Performed By: #### GFR, BMP #### [address] [address] Eosinophil, Absolute 0.2 10 3/mcL Normal 0.0-0.7 [facility] [place] Comment on above: Performed By: #### GFR, BMP #### [address] [address] Eosinophils/10 0 WBC (Bld) 3.0 % Normal 0.0-6.0 [facility] ([place]) Comment on above: Performed By: #### GFR, BMP #### [address] [address] Lymphocyte, Absolute 1.4 10 3/mcL Normal 0.9-4.3 [facility] ([place]) Comment on above: Performed By: #### GFR, BMP #### [address] [address] Lymphocytes/10 0 WBC (Bld) 27.4 % Normal 20.0-40.0 [facility] ([place]) Comment on above: Performed By: #### GFR, BMP #### [address] [address] Monocyte, Absolute 0.5 10 3/mcL Normal 0.1-1.4 [facility] ([place]) Comment on above: Performed By: #### GFR, BMP #### [address] [address] Monocytes/100 WBC (Bld) 9.9 % Normal 2.0-13.0 [facility] ([place]) Comment on above: Performed By: #### GFR, BMP #### [address] [address] Neutrophils/10 0 WBC (Bld) 59.1 % Normal 50.0-75.0 [facility] ([place]) Comment on above: Performed By: #### GFR, BMP #### [address] [address] .GFRon 03-02-2023 GFR 48 ml/min/1.73sqm Normal [facility] ([place]) Comment on above: Result Comment: GFR Population mean for , Non- Americans Ages 20-29 = 116 mL/min/1.73 sq.m. Ages 30-39 = 107 mL/min/1.73 sq.m. Ages 40-49 = 99 mL/min/1.73 sq.m. Ages 50-59 = 93 mL/min/1.73 sq.m. Ages 60-69 = 85 mL/min/1.73 sq.m. Ages 70+ = 75 mL/min/1.73 sq.m. Chronic Kidney Disease: Less than 60 mL/min/1.73 square meters End Stage Renal Disease: Less than 15 mL/min/1.73 square meters Performed By: #### G FR, BMP #### [place] [address] GFR Non- 40 ml/min/1.73sqm Normal [facility] ([place]) Comment on above: Result Comment: GFR Population mean for , Non- Americans Ages 20-29 = 116 mL/min/1.73 sq.m. Ages 30-39 = 107 mL/min/1.73 sq.m. Ages 40-49 = 99 mL/min/1.73 sq.m. Ages 50-59 = 93 mL/min/1.73 sq.m. Ages 60-69 = 85 mL/min/1.73 sq.m. Ages 70+ = 75 mL/min/1.73 sq.m. Chronic Kidney Disease: Less than 60 mL/min/1.73 square meters End Stage Renal Disease: Less than 15 mL/min/1.73 square meters Performed By: #### G FR, BMP #### [address] [id number] .NEUABSon 03-02-2023 Neutrophil, Absolute 3.0 10 3/mcL Normal 2.3-8.1 [facility] ([place]) Comment on above: Performed By: #### GFR, BMP #### [address] [address] BMPon 03-02-2023 BUN/Creatinine Ratio 18.7 ratio Normal 10.0-22.0 [facility] ([place]) Comment on above: Performed By: #### GFR, BMP #### [place] [address] Calcium [Mass/Vol] 9.2 mg/dL Normal 8.7-10.4 [facility] ([place]) Comment on above: Performed By: #### GFR, BMP #### [place] [address] Chloride [Moles/Vol] 108 mmol/L Normal 98-110 [facility] ([place]) Comment on above: Performed By: #### GFR, BMP #### [place] [id number] CO2 [Moles/Vol] 23 mmol/L Normal 22-32 [facility] ([place] Comment on above: Performed By: #### GFR, BMP #### [place] [address] Creatinine [Mass/Vol] 1.66 mg/dL High 0.60-1.40 [facility] ([place] Comment on above: Performed By: #### GFR, BMP #### [place] [address] Electrolyte Balance 5.0 mEq/L Normal 4.0-15.0 [facility] ([place] Comment on above: Performed By: #### GFR, BMP #### [place] [id number] Glucose [Mass/Vol] 110 mg/dL Normal 82-115 [facility] [place] Comment on above: Performed By: #### GFR, BMP #### [place] [id number] Potassium [Moles/Vol] 4.9 mmol/L Normal 3.5-5.0 [facility] [place] Comment on above: Performed By: #### GFR, BMP #### [place] [id number] Sodium [Moles/Vol] 136 mmol/L Normal 136-145 [facility] [place] Comment on above: Performed By: #### GFR, BMP #### [place] [address] Urea nitrogen [Mass/Vol] 31.0 mg/dL High 8.0-22.0 [facility] ([place] Comment on above: Performed By: #### GFR, BMP #### [place] [address] CBCon 03-02-2023 Erythrocyte distribution width (RBC) [Ratio] 13.6 % Normal 11.5-15.5 [facility] ([place] Comment on above: Performed By: #### GFR, BMP #### [place] [address] Hematocrit (Bld) [Volume fraction] 31.6 % Low 40.0-52.0 [facility] ([place] Comment on above: Performed By: #### GFR, BMP #### [place] [address] Hgb 10.6 G/dL Low 13.0-17.5 [facility] ([place] Comment on above: Performed By: #### GFR, BMP #### [place] [address] MCH (RBC) [Entitic mass] 33.0 pg Normal 27.0-33.0 [facility] [place] Comment on above: Performed By: #### GFR, BMP #### [place] [address] MCHC 33.6 G/dL Normal 32.0-36.0 [facility] [place] Comment on above: Performed By: #### GFR, BMP #### [place] [address] MCV (RBC) [Entitic vol] 98.2 fL Normal 81.0-100.0 [facility] [place] Comment on above: Performed By: #### GFR, BMP #### [place] [address] Platelet 160 10 3/mcL Normal 150-450 [facility] [place] Comment on above: Performed By: #### GFR, BMP #### [address] [address] Platelet mean volume (Bld) [Entitic vol] 8.1 fL Normal 6.4-10.5 [facility] [place] Comment on above: Performed By: #### GFR, BMP #### [address] [address] RBC 3.22 10 6/mcL Low 4.50-6.00 [facility] [place] Comment on above: Performed By: #### GFR, BMP #### [address] [address] WBC 5.1 10 3/mcL Normal 4.5-10.8 [facility] [place] Comment on above: Performed By: #### GFR, BMP #### [address] [address] MGon 03-02-2023 Magnesium [Mass/Vol] 1.5 mg/dL Low 1.6-2.4 [facility] [place] Comment on above: Performed By: #### MG #### [address] [address] .Auto Diffon 03-01-2023 Basophil, Absolute 0.0 10 3/mcL Normal 0.0-0.3 [facility] [place] Comment on above: Performed By: #### GFR, BMP #### [address] [address] Basophils/100 WBC (Bld) 0.5 % Normal 0.0-2.5 [facility] [place] Comment on above: Performed By: #### GFR, BMP #### [address] [address] Eosinophil, Absolute 0.1 10 3/mcL Normal 0.0-0.7 [facility] [place] Comment on above: Performed By: #### GFR, BMP #### [address] [address] Eosinophils/10 0 WBC (Bld) 2.0 % Normal 0.0-6.0 [facility] [place] Comment on above: Performed By: #### GFR, BMP #### [address] [address] Lymphocyte, Absolute 2.2 10 3/mcL Normal 0.9-4.3 [facility] [place] Comment on above: Performed By: #### GFR, BMP #### [address] [address] Lymphocytes/10 0 WBC (Bld) 35.2 % Normal 20.0-40.0 [facility] [place] Comment on above: Performed By: #### GFR, BMP #### [address] [address] Monocyte, Absolute 0.8 10 3/mcL Normal 0.1-1.4 [facility] [place] Comment on above: Performed By: #### GFR, BMP #### [address] [address] Monocytes/100 WBC (Bld) 12.2 % Normal 2.0-13.0 [facility] [place] Comment on above: Performed By: #### GFR, BMP #### [address] [address] Neutrophils/10 0 WBC (Bld) 50.1 % Normal 50.0-75.0 [facility] [place] Comment on above: Performed By: #### GFR, BMP #### [address] [address] .GFRon 03-01-2023 GFR 44 ml/min/1.73sqm Normal [facility] [place] Comment on above: Result Comment: GFR Population mean for , Non- Americans Ages 20-29 = 116 mL/min/1.73 sq.m. Ages 30-39 = 107 mL/min/1.73 sq.m. Ages 40-49 = 99 mL/min/1.73 sq.m. Ages 50-59 = 93 mL/min/1.73 sq.m. Ages 60-69 = 85 mL/min/1.73 sq.m. Ages 70+ = 75 mL/min/1.73 sq.m. Chronic Kidney Disease: Less than 60 mL/min/1.73 square meters End Stage Renal Disease: Less than 15 mL/min/1.73 square meters Performed By: #### G FR, BMP #### [address] [address] GFR Non- 37 ml/min/1.73sqm Normal [facility] [place] Comment on above: Result Comment: GFR Population mean for , Non- Americans Ages 20-29 = 116 mL/min/1.73 sq.m. Ages 30-39 = 107 mL/min/1.73 sq.m. Ages 40-49 = 99 mL/min/1.73 sq.m. Ages 50-59 = 93 mL/min/1.73 sq.m. Ages 60-69 = 85 mL/min/1.73 sq.m. Ages 70+ = 75 mL/min/1.73 sq.m. Chronic Kidney Disease: Less than 60 mL/min/1.73 square meters End Stage Renal Disease: Less than 15 mL/min/1.73 square meters Performed By: #### G FR, BMP #### [place] [address] .NEUABSon 03-01-2023 Neutrophil, Absolute 3.2 10 3/mcL Normal 2.3-8.1 [facility] [place] Comment on above: Performed By: #### GFR, BMP #### [place] [id number] [facility] BUN/Creatinine Ratio 22.5 ratio High 10.0-22.0 [facility] [place] Comment on above: Performed By: #### GFR, BMP #### [place] [id number] Calcium [Mass/Vol] 8.8 mg/dL Normal 8.7-10.4 [facility] [place] Comment on above: Performed By: #### GFR, BMP #### [address] [address] Chloride [Moles/Vol] 110 mmol/L Normal 98-110 [facility] [place] Comment on above: Performed By: #### GFR, BMP #### [place] [id number] CO2 [Moles/Vol] 19 mmol/L Low 22-32 [facility] [place] Comment on above: Performed By: #### GFR, BMP #### [address] [address] Creatinine [Mass/Vol] 1.78 mg/dL High 0.60-1.40 [facility] [place] Comment on above: Performed By: #### GFR, BMP #### [address] [address] Electrolyte Balance 7.0 mEq/L Normal 4.0-15.0 [facility] [place] Comment on above: Performed By: #### GFR, BMP #### [address] [address] Glucose [Mass/Vol] 99 mg/dL Normal 82-115 [facility] [place] Comment on above: Performed By: #### GFR, BMP #### [place] [address] Potassium [Moles/Vol] 5.0 mmol/L Normal 3.5-5.0 [facility] [place] Comment on above: Performed By: #### GFR, BMP #### [address] [address] Sodium [Moles/Vol] 136 mmol/L Normal 136-145 [facility] [place] Comment on above: Performed By: #### GFR, BMP #### [address] [address] Urea nitrogen [Mass/Vol] 40.0 mg/dL High 8.0-22.0 [facility] [place] Comment on above: Performed By: #### GFR, BMP #### [address] [address] CBCon 03-01-2023 Erythrocyte distribution width (RBC) [Ratio] 13.6 % Normal 11.5-15.5 [facility] [place] Comment on above: Performed By: #### GFR, BMP #### [address] [address] Hematocrit (Bld) [Volume fraction] 27.4 % Low 40.0-52.0 [facility] [place] Comment on above: Performed By: #### GFR, BMP #### [place] [address] Hgb 9.5 G/dL Low 13.0-17.5 [facility] [place] Comment on above: Performed By: #### GFR, BMP #### [place] [address] MCH (RBC) [Entitic mass] 33.6 pg High 27.0-33.0 [facility] [place] Comment on above: Performed By: #### GFR, BMP #### [place] [address] MCHC 34.9 G/dL Normal 32.0-36.0 [facility] [place] Comment on above: Performed By: #### GFR, BMP #### [place] [address] MCV (RBC) [Entitic vol] 96.4 fL Normal 81.0-100.0 [facility] [place] Comment on above: Performed By: #### GFR, BMP #### [place] [address] Platelet 142 10 3/mcL Low 150-450 [facility] [place] Comment on above: Performed By: #### GFR, BMP #### [place] [address] Platelet mean volume (Bld) [Entitic vol] 7.8 fL Normal 6.4-10.5 [facility] [place] Comment on above: Performed By: #### GFR, BMP #### [place] [address] RBC 2.84 10 6/mcL Low 4.50-6.00 [facility] [place] Comment on above: Performed By: #### GFR, BMP #### [place] [id number] WBC 6.3 10 3/mcL Normal 4.5-10.8 [facility] [place] Comment on above: Performed By: #### GFR, BMP #### [place] [id number] MGon 03-01-2023 Magnesium [Mass/Vol] 1.8 mg/dL Normal 1.6-2.4 [facility] [place] Comment on above: Performed By: #### GFR, BMP #### [place] [id number] UAon 03-01-2023 Color (U) Yellow Normal [facility] [place] Comment on above: Performed By: #### UA #### [place] [address] Glucose (U) [Mass/Vol] Negative Normal Negative [facility] [place] Comment on above: Performed By: #### UA #### [place] [address] Ketones Ql (U) Negative Normal Neg-Trace [facility] [place] Comment on above: Performed By: #### UA #### [place] [address] UA Appear Clear Normal Clear [facility] [place] Comment on above: Performed By: #### UA #### [place] [address] UA Blood Trace Normal Neg-Trace [facility] [place] Comment on above: Performed By: #### UA #### [place] [address] UA Leuk Est Trace Normal Negative [facility] [place] Comment on above: Performed By: #### UA #### [place] [address] UA Nitrite Negative Normal Negative [facility] [place] Comment on above: Performed By: #### UA #### [place] [address] UA pH 7.0 Normal 5.0 - 8.0 [facility] [place] Comment on above: Performed By: #### UA #### [place] [address] UA Protein Negative Normal Negative [facility] [place] Comment on above: Performed By: #### UA #### [place] [address] UA Spec Grav 1.010 Normal 1.006-1.02 9 [facility] [place] Comment on above: Performed By: #### UA #### [address] [address] UA Specimen Type Catheter Normal [facility] [place] Comment on above: Performed By: #### UA #### [address] [address] UA Urobilinogen 0.2 E.U./dL Normal 0.2-1.0 [facility] [place] Comment on above: Performed By: #### UA #### [place] [address] Urobilinogen (U) [Mass/Vol] Negative Normal Neg-Trace [facility] [place] Comment on above: Performed By: #### UA #### [place] [address] .Auto Diffon 02-28-2023 Basophil, Absolute 0.0 10 3/mcL Normal 0.0-0.3 [facility]) Comment on above: Performed By: #### GFR, CBC, FES, FERR, ANEU, MG, CK, ADIFF, BMP #### [place] [id number] Basophils/100 WBC (Bld) 0.4 % Normal 0.0-2.5 [facility] [place] Comment on above: Performed By: #### GFR, CBC, FES, FERR, ANEU, MG, CK, ADIFF, BMP #### [place] [id number] Eosinophil, Absolute 0.1 10 3/mcL Normal 0.0-0.7 [facility] [place] Comment on above: Performed By: #### GFR, CBC, FES, FERR, ANEU, MG, CK, ADIFF, BMP #### [address] [address] Eosinophils/10 0 WBC (Bld) 2.0 % Normal 0.0-6.0 [facility] [place] Comment on above: Performed By: #### GFR, CBC, FES, FERR, ANEU, MG, CK, ADIFF, BMP #### [address] [address] Lymphocyte, Absolute 1.9 10 3/mcL Normal 0.9-4.3 [facility] [place] Comment on above: Performed By: #### GFR, CBC, FES, FERR, ANEU, MG, CK, ADIFF, BMP #### [address] [address] Lymphocytes/10 0 WBC (Bld) 35.9 % Normal 20.0-40.0 [facility] [place] Comment on above: Performed By: #### GFR, CBC, FES, FERR, ANEU, MG, CK, ADIFF, BMP #### [address] [address] Monocyte, Absolute 0.7 10 3/mcL Normal 0.1-1.4 [facility] [place] Comment on above: Performed By: #### GFR, CBC, FES, FERR, ANEU, MG, CK, ADIFF, BMP #### [address] [address] Monocytes/100 WBC (Bld) 13.3 % High 2.0-13.0 [facility] [place] Comment on above: Performed By: #### GFR, CBC, FES, FERR, ANEU, MG, CK, ADIFF, BMP #### [address] [address] Neutrophils/10 0 WBC (Bld) 48.4 % Low 50.0-75.0 [facility] [place] Comment on above: Performed By: #### GFR, CBC, FES, FERR, ANEU, MG, CK, ADIFF, BMP #### [address] [address] .GFRon 02-28-2023 GFR Non- 35 ml/min/1.73sqm Normal [facility] ([place]) Comment on above: Result Comment: GFR Population mean for , Non- Americans Ages 20-29 = 116 mL/min/1.73 sq.m. Ages 30-39 = 107 mL/min/1.73 sq.m. Ages 40-49 = 99 mL/min/1.73 sq.m. Ages 50-59 = 93 mL/min/1.73 sq.m. Ages 60-69 = 85 mL/min/1.73 sq.m. Ages 70+ = 75 mL/min/1.73 sq.m. Chronic Kidney Disease: Less than 60 mL/min/1.73 square meters End Stage Renal Disease: Less than 15 mL/min/1.73 square meters Performed By: #### M G #### [address] [address] GFR 42 ml/min/1.73sqm Normal [facility] [place] Comment on above: Result Comment: GFR Population mean for , Non- Americans Ages 20-29 = 116 mL/min/1.73 sq.m. Ages 30-39 = 107 mL/min/1.73 sq.m. Ages 40-49 = 99 mL/min/1.73 sq.m. Ages 50-59 = 93 mL/min/1.73 sq.m. Ages 60-69 = 85 mL/min/1.73 sq.m. Ages 70+ = 75 mL/min/1.73 sq.m. Chronic Kidney Disease: Less than 60 mL/min/1.73 square meters End Stage Renal Disease: Less than 15 mL/min/1.73 square meters Performed By: #### M G #### [address] [address] .NEUABSon 02-28-2023 Neutrophil, Absolute 2.6 10 3/mcL Normal 2.3-8.1 [facility] [place] Comment [place] above: Performed By: #### GFR, CBC, FES, FERR, ANEU, MG, CK, ADIFF, BMP #### [address] [address] BMPon 02-28-2023 BUN/Creatinine Ratio 25.4 ratio High 10.0-22.0 [facility] [place] Comment on above: Performed By: #### GFR, CBC, FES, FERR, ANEU, MG, CK, ADIFF, BMP #### [address] [address] Calcium [Mass/Vol] 9.0 mg/dL Normal 8.7-10.4 [facility] [place] Comment on above: Performed By: #### GFR, CBC, FES, FERR, ANEU, MG, CK, ADIFF, BMP #### [address] [address] Chloride [Moles/Vol] 115 mmol/L High 98-110 [facility] [place] Comment on above: Performed By: #### GFR, CBC, FES, FERR, ANEU, MG, CK, ADIFF, BMP #### [address] [address] CO2 [Moles/Vol] 17 mmol/L Low 22-32 [facility] [place] Comment on above: Performed By: #### GFR, CBC, FES, FERR, ANEU, MG, CK, ADIFF, BMP #### [place] [id number] Creatinine [Mass/Vol] 1.85 mg/dL High 0.60-1.40 [facility] [place] Comment on above: Performed By: #### GFR, CBC, FES, FERR, ANEU, MG, CK, ADIFF, BMP #### [place] [id number] Electrolyte Balance 5.0 mEq/L Normal 4.0-15.0 [facility] [place] Comment on above: Performed By: #### GFR, CBC, FES, FERR, ANEU, MG, CK, ADIFF, BMP #### [place] [id number] Glucose [Mass/Vol] 84 mg/dL Normal 82-115 [facility] [place] Comment on above: Performed By: #### GFR, CBC, FES, FERR, ANEU, MG, CK, ADIFF, BMP #### [place] [id number] Potassium [Moles/Vol] 5.2 mmol/L High 3.5-5.0 [facility] [place] Comment on above: Performed By: #### GFR, CBC, FES, FERR, ANEU, MG, CK, ADIFF, BMP #### [place] [id number] Sodium [Moles/Vol] 137 mmol/L Normal 136-145 [facility] [place] Comment on above: Performed By: #### GFR, CBC, FES, FERR, ANEU, MG, CK, ADIFF, BMP #### [place] [address] Urea nitrogen [Mass/Vol] 47.0 mg/dL High 8.0-22.0 [facility] [place] Comment on above: Performed By: #### GFR, CBC, FES, FERR, ANEU, MG, CK, ADIFF, BMP #### [place] [address] CBCon 02-28-2023 Erythrocyte distribution width (RBC) [Ratio] 13.5 % Normal 11.5-15.5 [facility] [place] Comment on above: Performed By: #### GFR, CBC, FES, FERR, ANEU, MG, CK, ADIFF, BMP #### [place] [address] Hematocrit (Bld) [Volume fraction] 28.5 % Low 40.0-52.0 [facility] [place] Comment on above: Performed By: #### GFR, CBC, FES, FERR, ANEU, MG, CK, ADIFF, BMP #### [place] [address] Hgb 9.8 G/dL Low 13.0-17.5 [facility] [place] Comment on above: Performed By: #### GFR, CBC, FES, FERR, ANEU, MG, CK, ADIFF, BMP #### [place] [id number] MCH (RBC) [Entitic mass] 33.1 pg High 27.0-33.0 [facility] [place] Comment on above: Performed By: #### GFR, CBC, FES, FERR, ANEU, MG, CK, ADIFF, BMP #### [place] [address] MCHC 34.2 G/dL Normal 32.0-36.0 [facility] [place] Comment on above: Performed By: #### GFR, CBC, FES, FERR, ANEU, MG, CK, ADIFF, BMP #### [place] [address] MCV (RBC) [Entitic vol] 96.8 fL Normal 81.0-100.0 [facility] [place] Comment on above: Performed By: #### GFR, CBC, FES, FERR, ANEU, MG, CK, ADIFF, BMP #### [place] [address] Platelet 148 10 3/mcL Low 150-450 [facility] [place] Comment on above: Performed By: #### GFR, CBC, FES, FERR, ANEU, MG, CK, ADIFF, BMP #### [place] [address] Platelet mean volume (Bld) [Entitic vol] 8.0 fL Normal 6.4-10.5 [facility] [place] Comment on above: Performed By: #### GFR, CBC, FES, FERR, ANEU, MG, CK, ADIFF, BMP #### [place] [address] RBC 2.95 10 6/mcL Low 4.50-6.00 [facility] [place] Comment on above: Performed By: #### GFR, CBC, FES, FERR, ANEU, MG, CK, ADIFF, BMP #### [place] [address] WBC 5.4 10 3/mcL Normal 4.5-10.8 [facility] [place] Comment on above: Performed By: #### GFR, CBC, FES, FERR, ANEU, MG, CK, ADIFF, BMP #### [place] [address] CKon 02-28-2023 CK [Catalytic activity/Vol] 135 U/L Normal 7-185 [facility] [place] Comment on above: Performed By: #### MG #### [place] [address] Alee 02-28-2023 Ferritin [Mass/Vol] 307.3 ng/mL Normal 26.0-388.0 [facility] [place] Comment on above: Performed By: #### GFR, CBC, FES, FERR, ANEU, MG, CK, ADIFF, BMP #### [address] [address] FESon 02-28-2023 Iron [Mass/Vol] 74 ug/dL Normal 65-175 [facility] [place] Comment on above: Performed By: #### MG #### [place] [address] Iron Sat 30 % Normal [facility] [place] Comment on above: Performed By: #### MG #### [place] [address] TIBC 250 mcg/dL Normal 250-500 [facility] [place] Comment on above: Performed By: #### MG #### [place] [address] MGon 02-28-2023 Magnesium [Mass/Vol] 1.1 mg/dL Low 1.6-2.4 [facility] [place] Comment on above: Performed By: #### GFR, CBC, FES, FERR, ANEU, MG, CK, ADIFF, BMP #### [address] [address] US RENALon 02-28-2023 US RENAL ORIGINAL EXAMINATION: LIMITED RETROPERITONEAL [id number]/2023 10:53 am Ultrasound retroperitoneum Complete: Attention Urinary tract COMPARISON: None HISTORY: ORDERING SYSTEM PROVIDED HISTORY: Reason for Exam: MAYRA, FINDINGS: There is suboptimal visualization of the kidneys due to artifacts from body habitus and bowel gas. Only gross evaluation is possible. Right kidney: 9.2 x 5.0 x 5.5 cm Left kidney: 8.0 x 4.9 x 4.5 cm Renal echogenicity is normal on both sides and there is no pelvocaliectasis on either side. There is probably mild renal cortical thinning bilaterally which is considered age-appropriate. There may be small parapelvic cyst in the right kidney. No other renal lesions are seen within constraints of this study. There is no free fluid seen in the abdomen. Urinary bladder is completely decompressed by Garza catheter.. IMPRESSION: No obstruction or acute findings in the kidneys. Interpreted by: Arnulfo Martinez MD Preliminary Report By: Arnulfo Martinez MD Electronically signed By Arnulfo Martinez MD Dictated Date: 02/28/2023 12:34:38 PM Prelim Date: 02/28/2023 12:35:57 PM Sign Date: 02/28/2023 12:35:57 PM Ordering Provider: LENY GARDNER [facility] ([place] .GFRon 02-27-2023 GFR Non- 27 ml/min/1.73sqm Normal [facility] ([place] Comment on above: Result Comment: GFR Population mean for , Non- Americans Ages 20-29 = 116 mL/min/1.73 sq.m. Ages 30-39 = 107 mL/min/1.73 sq.m. Ages 40-49 = 99 mL/min/1.73 sq.m. Ages 50-59 = 93 mL/min/1.73 sq.m. Ages 60-69 = 85 mL/min/1.73 sq.m. Ages 70+ = 75 mL/min/1.73 sq.m. Chronic Kidney Disease: Less than 60 mL/min/1.73 square meters End Stage Renal Disease: Less than 15 mL/min/1.73 square meters Performed By: #### M G #### [address] [address] GFR 32 ml/min/1.73sqm Normal [facility] [place] Comment on above: Result Comment: GFR Population mean for , Non- Americans Ages 20-29 = 116 mL/min/1.73 sq.m. Ages 30-39 = 107 mL/min/1.73 sq.m. Ages 40-49 = 99 mL/min/1.73 sq.m. Ages 50-59 = 93 mL/min/1.73 sq.m. Ages 60-69 = 85 mL/min/1.73 sq.m. Ages 70+ = 75 mL/min/1.73 sq.m. Chronic Kidney Disease: Less than 60 mL/min/1.73 square meters End Stage Renal Disease: Less than 15 mL/min/1.73 square meters Performed By: #### M G #### [address] [address] B12on 02-27-2023 Cobalamin (Vitamin B12) [Mass/Vol] 387 pg/mL Normal 211-911 [facility] [place] Comment on above: Performed By: #### GFR, BMP #### [address] [address] BMPon 02-27-2023 BUN/Creatinine Ratio 24.7 ratio High 10.0-22.0 [facility] [place] Comment on above: Performed By: #### MG #### [address] [address] Calcium [Mass/Vol] 9.7 mg/dL Normal 8.7-10.4 [facility] [place] Comment on above: Performed By: #### MG #### [place] [id number] Chloride [Moles/Vol] 111 mmol/L High 98-110 [facility] [place] Comment on above: Performed By: #### MG #### [place] [id number] CO2 [Moles/Vol] 15 mmol/L Low 22-32 [facility] [place] Comment on above: Performed By: #### MG #### [place] [id number] Creatinine [Mass/Vol] 2.35 mg/dL High 0.60-1.40 [facility] [place] Comment on above: Performed By: #### MG #### [place] [address] Electrolyte Balance 13.0 mEq/L Normal 4.0-15.0 [facility] [place] Comment on above: Performed By: #### MG #### [place] [id number] Glucose [Mass/Vol] 103 mg/dL Normal 82-115 [facility] [place] Comment on above: Performed By: #### MG #### [place] [id number] Potassium [Moles/Vol] 6.6 mmol/L Critically abnormal 3.5-5.0 [facility] [place] Comment on above: Performed By: #### MG #### [address] [address] Sodium [Moles/Vol] 139 mmol/L Normal 136-145 [facility] [place] Comment on above: Performed By: #### MG #### [address] [address] Urea nitrogen [Mass/Vol] 58.0 mg/dL High 8.0-22.0 [facility] [place] Comment on above: Performed By: #### MG #### [address] [address] BMP (POC)on 02-27-2023 Perf Loc - POCT Tested at AM Normal [facility] [place] Comment on above: Result Comment: [facility] [address] [place], [place] [address] Calcium Level Ionized (POC) 1.29 mmol/L Normal 1.12-1.32 [facility] [place]) Chloride [Moles/Vol] 109 mmol/L Normal 98-109 [facility] [place] CO2 [Moles/Vol] 18.0 mmol/L Low 24.0-29.0 [facility] [place] Creatinine [Mass/Vol] 2.50 mg/dL High 0.60-1.40 [facility] [place] Electrolyte Balance (POC) 19.0 mEq/L High 4.0-15.0 [facility] [place] Est GFR (POC) 30 ml/min/1.73sqm Normal [facility] [place] Comment on above: Result Comment: Chronic Kidney Disease: Less than 60 mL/min/1.73 square meters End Stage Renal Disease: Less than 15 mL/min/1.73 square meters Est GFR Non- (POC) 25 ml/min/1.73sqm Normal [facility] [place] Comment on above: Result Comment: Chronic Kidney Disease: Less than 60 mL/min/1.73 square meters End Stage Renal Disease: Less than 15 mL/min/1.73 square meters Glucose [Mass/Vol] 120 mg/dL High 82-115 [facility] [place] Performing Instrument - POCT Lab iSTAT Normal [facility] [place] Potassium [Moles/Vol] 5.6 mmol/L High 3.5-4.9 [facility] [place]) Sodium [Moles/Vol] 139 mmol/L Normal 138-146 [facility]) Urea nitrogen [Mass/Vol] 53.0 mg/dL High 8.0-26.0 [facility]) CBC (POC)on 02-27-2023 Perf Loc - POCT Tested at AM Normal [facility]) Comment on above: Result Comment: [facility] [address] [place], [place] [address] Basophil, Absolute (POC) 0.03 10 3/mcL Normal 0.00-0.27 [facility] [place]) Basophils/100 WBC (Bld) 0.7 % Normal 0.0-2.5 [facility]) Eosinophil, Absolute (POC) 0.11 10 3/mcL Normal 0.00-0.65 [facility]) Eosinophils/10 0 WBC (Bld) 2.7 % Normal 0.0-6.0 [facility]) Erythrocyte distribution width (RBC) [Ratio] 13.1 % Normal 11.5-15.5 [facility]) Hematocrit (Bld) [Volume fraction] 30.6 % Low 40.0-52.0 [facility]) Hemoglobin (POC) 10.2 G/dL Low 13.0-17.5 [facility]) Imm Granulocyte, Absolute (POC) 0.01 10 3/mcL Normal [facility]) Immature granulocytes/1 00 WBC (Bld) 0.2 % Normal [facility]) Lymphocyte, Absolute (POC) 1.48 10 3/mcL Normal 0.90-4.32 [facility]) Lymphocytes/10 0 WBC (Bld) 35.8 % Normal 20.0-40.0 [facility]) MCH (RBC) [Entitic mass] 32.6 pg Normal 27.0-33.0 [facility]) MCHC (POC) 33.3 G/dL Normal 32.0-36.0 [facility]) MCV (RBC) [Entitic vol] 97.8 fL Normal [facility]100.0 [facility] Monocyte, Absolute (POC) 0.44 10 3/mcL Normal 0.09-1.40 [facility]) Monocytes/100 WBC (Bld) 10.7 % Normal 2.0-13.0 [facility]) Neutrophil, Absolute (POC) 2.06 10 3/mcL Low 2.25-8.10 [facility] ([place]) Neutrophils/10 0 WBC (Bld) 49.9 % Low 50.0-75.0 [facility] ([place]) Performing Instrument - POCT SYSMEX Normal [facility]) Platelet (POC) 149 10 3/mcL Low 150-450 [facility] ([place]) Platelet mean volume (Bld) [Entitic vol] 9.5 fL Normal 6.4-10.5 [facility]) RBC (POC) 3.13 10 6/mcL Low 4.50-6.00 [facility] ([place]) WBC (POC) 4.13 10 3/mcL Low 4.50-10.80 [facility] ([place]) FOLon 02-27-2023 Folate 13.58 ng/mL Normal 5.38-24.00 [facility]) Comment on above: Performed By: #### MG #### [address] [address] HFPon 02-27-2023 Bili Indirect Unable to Calculate Normal 0.1-10.0 [facility]) Comment on above: Result Comment: Unable to calculate this test result accurately. Results used to calculate this test are outside the reportable range. Performed By: #### M G #### [address] [address] Albumin Level 3.9 G/dL Normal 3.2-4.8 [facility]) Comment on above: Performed By: #### MG #### [address] [address] Albumin/Globul in [Mass ratio] 1.2 {ratio} Normal 0.9-1.6 [facility]) Comment on above: Performed By: #### MG #### [address] [address] ALP [Catalytic activity/Vol] 84 U/L Normal 38-126 [facility] ([place]) Comment on above: Performed By: #### MG #### [place] [id number] ALT [Catalytic activity/Vol] 15 U/L Normal 12-55 [facility] ([place]) Comment on above: Performed By: #### MG #### [place] [id number] AST [Catalytic activity/Vol] 15 U/L Normal 8-34 [facility] ([place]) Comment on above: Performed By: #### MG #### [place] [id number] Bili Direct <0.1 Normal 0.0-0.4 [facility] ([place]) Comment on above: Result Comment: Use of this assay is not recommended for patients undergoing treatment with eltrombopag due to the potential for falsely elevated results. Performed By: #### M G #### [place] [address] Bili Total 0.30 mg/dL Normal 0.20-1.20 [facility] ([place]) Comment on above: Result Comment: Use of this assay is not recommended for patients undergoing treatment with eltrombopag due to the potential for falsely elevated results. Performed By: #### M G #### [place] [id number] Globulin 3.3 G/dL Normal 1.5-3.8 [facility] ([place]) Comment on above: Performed By: #### MG #### [place] [address] Total Protein 7.2 G/dL Normal 5.7-8.2 [facility] ([place]) Comment on above: Result Comment: Note - New Reference Karis duncan in effect 11/09/19 Performed By: #### M G #### [place] [address] LIPIDon 02-27-2023 Cholesterol [Mass/Vol] 189 mg/dL Normal 50-199 [facility] ([place]) Comment on above: Result Comment: Cholesterol Reference In terval: Less than 200 Desirable 200-239 Borderline high risk 240 and above High risk Performed By: #### G FR, BMP #### [address] [address] Cholesterol in HDL [Mass/Vol] 41 mg/dL Normal 40-59 [facility] ([place]) Comment on above: Performed By: #### GFR, BMP #### [address] [address] Cholesterol in LDL [Mass/Vol] 126 mg/dL Normal 0-129 [facility] ([place]) Comment on above: Performed By: #### GFR, BMP #### [address] [address] Triglyceride [Mass/Vol] 110 mg/dL Normal 3-149 [facility] ([place]) Comment on above: Performed By: #### GFR, BMP #### [place] [id number] TSHon 02-27-2023 TSH 3.046 mIU/mL Normal 0.550-4.78 0 [facility] ([place]) Comment on above: Result Comment: Note - New Reference Karis duncan in effect 11/09/19 Performed By: #### G FR, BMP #### [address] [address] UA (POC)on 02-27-2023 Perf Loc - POCT Tested at AM Normal [facility] ([place]) Comment on above: Result Comment: [facility] [address] [place], [place] [address] Appearance (U) Slightly Cloudy Normal [facility] ([place]) Bilirubin Ql (U) Negative Normal Neg-Trace [facility] ([place]) Color (U) Light yellow Normal [facility] ([place]) Glucose Ql (U) Negative Normal Negative [facility] ([place]) Hemoglobin Ql (U) Moderate Abnormal Neg-Trace [facility] ([place]) Ketones Ql (U) Negative Normal [facility] ([place]) Leukocyte esterase Test strip Ql (U) Negative Normal Neg-Trace [facility] ([place]) Nitrite Ql (U) Negative Normal Negative [facility] ([place]) Performing Instrument - POCT CLINITEK Normal [facility] ([place]) pH (U) 6.0 [pH] Normal 5.0 - 8.0 [facility] ([place]) Protein Ql (U) Negative Normal Neg-30 [facility] ([place]) Specific gravity (U) [Rel density] 1.015 Normal 1.006-1.02 9 [facility] ([place]) Urobilinogen Qn (U) 0.2 {Darrel'U}/dL Normal 0.2-1.0 [facility] ([place]) .Auto Diffon 02-26-2023 Basophil, Absolute 0.0 10 3/mcL Normal 0.0-0.3 [facility] ([place]) Comment on above: Performed By: #### MG #### [address] [address] Basophils/100 WBC (Bld) 0.6 % Normal 0.0-2.5 [facility] ([place]) Comment on above: Performed By: #### MG #### [address] [address] Eosinophil, Absolute 0.2 10 3/mcL Normal 0.0-0.7 [facility] ([place]) Comment on above: Performed By: #### MG #### [address] [address] Eosinophils/10 0 WBC (Bld) 2.8 % Normal 0.0-6.0 [facility] ([place]) Comment on above: Performed By: #### MG #### [address] [address] Lymphocyte, Absolute 1.6 10 3/mcL Normal 0.9-4.3 [facility] ([place]) Comment on above: Performed By: #### MG #### [address] [address] Lymphocytes/10 0 WBC (Bld) 30.0 % Normal 20.0-40.0 [facility] ([place]) Comment on above: Performed By: #### MG #### [address] [address] Monocyte, Absolute 0.7 10 3/mcL Normal 0.1-1.4 [facility] ([place]) Comment on above: Performed By: #### MG #### [address] [address] Monocytes/100 WBC (Bld) 13.2 % High 2.0-13.0 [facility] ([place]) Comment on above: Performed By: #### MG #### [address] [address] Neutrophils/10 0 WBC (Bld) 53.4 % Normal 50.0-75.0 [facility] ([place]) Comment on above: Performed By: #### MG #### [address] [address] .NEUABSon 02-26-2023 Neutrophil, Absolute 2.9 10 3/mcL Normal 2.3-8.1 [facility] ([place]) Comment on above: Performed By: #### MG #### [address] [address] CBCon 02-26-2023 Erythrocyte distribution width (RBC) [Ratio] 13.7 % Normal 11.5-15.5 [facility] ([place]) Comment on above: Performed By: #### MG #### [address] [address] Hematocrit (Bld) [Volume fraction] 32.1 % Low 40.0-52.0 [facility] ([place]) Comment on above: Performed By: #### MG #### [address] [address] Hgb 10.9 G/dL Low 13.0-17.5 [facility] ([place]) Comment on above: Performed By: #### MG #### [address] [address] MCH (RBC) [Entitic mass] 33.3 pg High 27.0-33.0 [facility] ([place]) Comment on above: Performed By: #### MG #### [place] [id number] MCHC 33.9 G/dL Normal 32.0-36.0 [facility] ([place]) Comment on above: Performed By: #### MG #### [address] [address] MCV (RBC) [Entitic vol] 98.3 fL Normal 81.0-100.0 [facility] ([place]) Comment on above: Performed By: #### MG #### [place] [address] Platelet 167 10 3/mcL Normal 150-450 [facility] ([place]) Comment on above: Performed By: #### MG #### [place] [id number] Platelet mean volume (Bld) [Entitic vol] 8.8 fL Normal 6.4-10.5 [facility] ([place]) Comment on above: Performed By: #### MG #### [place] [address] RBC 3.27 10 6/mcL Low 4.50-6.00 [facility] ([place]) Comment on above: Performed By: #### MG #### [place] [id number] WBC 5.5 10 3/mcL Normal 4.5-10.8 [facility] ([place]) Comment on above: Performed By: #### MG #### [address] [address] .GFRon 09-06-2022 GFR Non- 45 ml/min/1.73sqm Normal [facility] ([place]) Comment on above: Result Comment: GFR Population mean for , Non- Americans Ages 20-29 = 116 mL/min/1.73 sq.m. Ages 30-39 = 107 mL/min/1.73 sq.m. Ages 40-49 = 99 mL/min/1.73 sq.m. Ages 50-59 = 93 mL/min/1.73 sq.m. Ages 60-69 = 85 mL/min/1.73 sq.m. Ages 70+ = 75 mL/min/1.73 sq.m. Chronic Kidney Disease: Less than 60 mL/min/1.73 square meters End Stage Renal Disease: Less than 15 mL/min/1.73 square meters Performed By: #### G FR, BMP #### [address] [address] GFR 55 ml/min/1.73sqm Normal [facility] ([place]) Comment on above: Result Comment: GFR Population mean for , Non- Americans Ages 20-29 = 116 mL/min/1.73 sq.m. Ages 30-39 = 107 mL/min/1.73 sq.m. Ages 40-49 = 99 mL/min/1.73 sq.m. Ages 50-59 = 93 mL/min/1.73 sq.m. Ages 60-69 = 85 mL/min/1.73 sq.m. Ages 70+ = 75 mL/min/1.73 sq.m. Chronic Kidney Disease: Less than 60 mL/min/1.73 square meters End Stage Renal Disease: Less than 15 mL/min/1.73 square meters Performed By: #### G FR, BMP #### [address] [address] [facility] 09-06-2022 BUN/Creatinine Ratio 31.5 ratio High 10.0-22.0 [facility] ([place]) Comment on above: Performed By: #### GFR, BMP #### [address] [address] Calcium [Mass/Vol] 9.5 mg/dL Normal 8.7-10.4 [facility] ([place]) Comment on above: Performed By: #### GFR, BMP #### [address] [address] Chloride [Moles/Vol] 108 mmol/L Normal 98-110 [facility] ([place]) Comment on above: Performed By: #### GFR, BMP #### [address] [address] CO2 [Moles/Vol] 23 mmol/L Normal 22-32 [facility] ([place]) Comment on above: Performed By: #### GFR, BMP #### [address] [address] Creatinine [Mass/Vol] 1.49 mg/dL High 0.60-1.40 [facility] ([place]) Comment on above: Performed By: #### GFR, BMP #### [address] [address] Electrolyte Balance 9.0 mEq/L Normal 4.0-15.0 [facility] ([place]) Comment on above: Performed By: #### GFR, BMP #### [address] [address] Glucose [Mass/Vol] 91 mg/dL Normal 82-115 [facility] ([place]) Comment on above: Performed By: #### GFR, BMP #### [address] [address] Potassium [Moles/Vol] 5.1 mmol/L High 3.5-5.0 [facility] ([place]) Comment on above: Result Comment: Specimen slightly hemoly zed. Performed By: #### G FR, BMP #### [address] [address] Sodium [Moles/Vol] 140 mmol/L Normal 136-145 [facility] ([place]) Comment on above: Performed By: #### GFR, BMP #### [address] [address] Urea nitrogen [Mass/Vol] 47.0 mg/dL High 8.0-22.0 [facility] ([place]) Comment on above: Performed By: #### GFR, BMP #### [address] [address] HCVon 09-03-2022 Hep C Ab Non-Reactive Normal Non-Reacti ve [facility] ([place]) Comment on above: Performed By: #### GFR, CBC, FES, FERR, ANEU, MG, CK, ADIFF, BMP #### [address] [address] Hep C Ab Int Normal [facility] ([place]) Comment on above: Result Comment: Nonreactive: Samples wit h a value < 0.80 are considered nonreactive (negative) for antibodies to HCV. A negative test result does not exclude the possibility of exposure to or infection with HCV. HCV antibodies may be undetectable in some stages of the infection and in some clinical conditions. See Interp Performed By: #### G FR, CBC, FES, FERR, ANEU, MG, CK, ADIFF, BMP #### [address] [address] .Auto Diffon 09-02-2022 Basophil, Absolute 0.0 10 3/mcL Normal 0.0-0.3 [facility] ([place]) Comment on above: Performed By: #### GFR, BMP #### [address] [address] Basophils/100 WBC (Bld) 0.7 % Normal 0.0-2.5 [facility] [place] Comment on above: Performed By: #### GFR, BMP #### [address] [address] Eosinophil, Absolute 0.1 10 3/mcL Normal 0.0-0.7 [facility] [place] Comment on above: Performed By: #### GFR, BMP #### [address] [address] Eosinophils/10 0 WBC (Bld) 2.0 % Normal 0.0-6.0 [facility] [place] Comment on above: Performed By: #### GFR, BMP #### [address] [address] Lymphocyte, Absolute 1.7 10 3/mcL Normal 0.9-4.3 [facility] [place] Comment on above: Performed By: #### GFR, BMP #### [address] [address] Lymphocytes/10 0 WBC (Bld) 32.4 % Normal 20.0-40.0 [facility] [place] Comment on above: Performed By: #### GFR, BMP #### [address] [address] Monocyte, Absolute 0.6 10 3/mcL Normal 0.1-1.4 [facility] ([place] Comment on above: Performed By: #### GFR, BMP #### [address] [address] Monocytes/100 WBC (Bld) 10.9 % Normal 2.0-13.0 [facility] ([place] Comment on above: Performed By: #### GFR, BMP #### [address] [address] Neutrophils/10 0 WBC (Bld) 54.0 % Normal 50.0-75.0 [facility] ([place]) Comment on above: Performed By: #### GFR, BMP #### [address] [address] .GFRon 09-02-2022 GFR Non- 43 ml/min/1.73sqm Normal [facility] ([place]) Comment on above: Result Comment: GFR Population mean for , Non- Americans Ages 20-29 = 116 mL/min/1.73 sq.m. Ages 30-39 = 107 mL/min/1.73 sq.m. Ages 40-49 = 99 mL/min/1.73 sq.m. Ages 50-59 = 93 mL/min/1.73 sq.m. Ages 60-69 = 85 mL/min/1.73 sq.m. Ages 70+ = 75 mL/min/1.73 sq.m. Chronic Kidney Disease: Less than 60 mL/min/1.73 square meters End Stage Renal Disease: Less than 15 mL/min/1.73 square meters Performed By: #### G FR, CBC, FES, FERR, ANEU, MG, CK, ADIFF, BMP #### [address] [address] GFR 53 ml/min/1.73sqm Normal [facility] ([place]) Comment on above: Result Comment: GFR Population mean for , Non- Americans Ages 20-29 = 116 mL/min/1.73 sq.m. Ages 30-39 = 107 mL/min/1.73 sq.m. Ages 40-49 = 99 mL/min/1.73 sq.m. Ages 50-59 = 93 mL/min/1.73 sq.m. Ages 60-69 = 85 mL/min/1.73 sq.m. Ages 70+ = 75 mL/min/1.73 sq.m. Chronic Kidney Disease: Less than 60 mL/min/1.73 square meters End Stage Renal Disease: Less than 15 mL/min/1.73 square meters Performed By: #### G FR, CBC, FES, FERR, ANEU, MG, CK, ADIFF, BMP #### [place] [address] .NEUABSon 09-02-2022 Neutrophil, Absolute 2.9 10 3/mcL Normal 2.3-8.1 [facility] ([place]) Comment on above: Performed By: #### GFR, BMP #### [place] [address] CBCon 09-02-2022 Erythrocyte distribution width (RBC) [Ratio] 13.0 % Normal 11.5-15.5 [facility] ([place]) Comment on above: Performed By: #### GFR, BMP #### [place] [address] Hematocrit (Bld) [Volume fraction] 36.3 % Low 40.0-52.0 [facility] ([place]) Comment on above: Performed By: #### GFR, BMP #### [place] [address] Hgb 12.3 G/dL Low 13.0-17.5 [facility] ([place]) Comment on above: Performed By: #### GFR, BMP #### [place] [address] MCH (RBC) [Entitic mass] 32.9 pg Normal 27.0-33.0 [facility] ([place]) Comment on above: Performed By: #### GFR, BMP #### [place] [address] MCHC 34.0 G/dL Normal 32.0-36.0 [facility] ([place]) Comment on above: Performed By: #### GFR, BMP #### [place] [address] MCV (RBC) [Entitic vol] 96.8 fL Normal 81.0-100.0 [facility] ([place]) Comment on above: Performed By: #### GFR, BMP #### [place] [address] Platelet 165 10 3/mcL Normal 150-450 [facility] ([place]) Comment on above: Performed By: #### GFR, BMP #### [place] [address] Platelet mean volume (Bld) [Entitic vol] 8.7 fL Normal 6.4-10.5 [facility] ([place]) Comment on above: Performed By: #### GFR, BMP #### [place] [address] RBC 3.75 10 6/mcL Low 4.50-6.00 [facility] ([place]) Comment on above: Performed By: #### GFR, BMP #### [place] [address] WBC 5.4 10 3/mcL Normal 4.5-10.8 [facility] ([place]) Comment on above: Performed By: #### GFR, BMP #### [place] [address] CMPon 09-02-2022 Albumin Level 4.1 G/dL Normal 3.2-4.8 [facility] ([place]) Comment on above: Performed By: #### GFR, CBC, FES, FERR, ANEU, MG, CK, ADIFF, BMP #### [place] [address] Albumin/Globul in [Mass ratio] 1.3 {ratio} Normal 0.9-1.6 [facility] ([place]) Comment on above: Performed By: #### GFR, CBC, FES, FERR, ANEU, MG, CK, ADIFF, BMP #### [place] [address] ALP [Catalytic activity/Vol] 80 U/L Normal 38-126 [facility] ([place]) Comment on above: Performed By: #### GFR, CBC, FES, FERR, ANEU, MG, CK, ADIFF, BMP #### [place] [address] ALT [Catalytic activity/Vol] 20 U/L Normal 12-55 [facility] ([place]) Comment on above: Performed By: #### GFR, CBC, FES, FERR, ANEU, MG, CK, ADIFF, BMP #### [address] [address] AST [Catalytic activity/Vol] 23 U/L Normal 8-34 [facility] ([place]) Comment on above: Performed By: #### GFR, CBC, FES, FERR, ANEU, MG, CK, ADIFF, BMP #### [address] [address] Bili Total 0.40 mg/dL Normal 0.20-1.20 [facility] ([place]) Comment on above: Result Comment: Use of this assay is not recommended for patients undergoing treatment with eltrombopag due to the potential for falsely elevated results. Performed By: #### G FR, CBC, FES, FERR, ANEU, MG, CK, ADIFF, BMP #### [place] [id number] BUN/Creatinine Ratio 25.3 ratio High 10.0-22.0 [facility] ([place]) Comment on above: Performed By: #### GFR, CBC, FES, FERR, ANEU, MG, CK, ADIFF, BMP #### [place] [id number] Calcium [Mass/Vol] 9.5 mg/dL Normal 8.7-10.4 [facility] ([place]) Comment on above: Performed By: #### GFR, CBC, FES, FERR, ANEU, MG, CK, ADIFF, BMP #### [place] [id number] Chloride [Moles/Vol] 109 mmol/L Normal 98-110 [facility] ([place]) Comment on above: Performed By: #### GFR, CBC, FES, FERR, ANEU, MG, CK, ADIFF, BMP #### [address] [address] CO2 [Moles/Vol] 22 mmol/L Normal 22-32 [facility] ([place]) Comment on above: Performed By: #### GFR, CBC, FES, FERR, ANEU, MG, CK, ADIFF, BMP #### [place] [id number] Creatinine [Mass/Vol] 1.54 mg/dL High 0.60-1.40 [facility] ([place]) Comment on above: Performed By: #### GFR, CBC, FES, FERR, ANEU, MG, CK, ADIFF, BMP #### [address] [address] Electrolyte Balance 7.0 mEq/L Normal 4.0-15.0 [facility] ([place]) Comment on above: Performed By: #### GFR, CBC, FES, FERR, ANEU, MG, CK, ADIFF, BMP #### [address] [address] Globulin 3.2 G/dL Normal 1.5-3.8 [facility] ([place]) Comment on above: Performed By: #### GFR, CBC, FES, FERR, ANEU, MG, CK, ADIFF, BMP #### [address] [address] Glucose [Mass/Vol] 98 mg/dL Normal 82-115 [facility] ([place]) Comment on above: Performed By: #### GFR, CBC, FES, FERR, ANEU, MG, CK, ADIFF, BMP #### [address] [address] Potassium [Moles/Vol] 5.6 mmol/L High 3.5-5.0 [facility] ([place]) Comment on above: Result Comment: Specimen slightly hemoly zed. Performed By: #### G FR, CBC, FES, FERR, ANEU, MG, CK, ADIFF, BMP #### [address] [address] Sodium [Moles/Vol] 138 mmol/L Normal 136-145 [facility] ([place]) Comment on above: Performed By: #### GFR, CBC, FES, FERR, ANEU, MG, CK, ADIFF, BMP #### [address] [address] Total Protein 7.3 G/dL Normal 5.7-8.2 [facility] ([place]) Comment on above: Result Comment: Note - New Reference Karis duncan in effect 11/09/19 Performed By: #### G FR, CBC, FES, FERR, ANEU, MG, CK, ADIFF, BMP #### [place] [address] [place] [address] Urea nitrogen [Mass/Vol] 39.0 mg/dL High 8.0-22.0 [facility] ([place]) Comment on above: Performed By: #### GFR, CBC, FES, FERR, ANEU, MG, CK, ADIFF, BMP #### [place] [address] [place] [address] WOUND CULTUREon 09-21-2021 WOUND CULTURE GRAM STAIN RARE WBC'S FEW GRAM POSITIVE COCCI ORGANISM 1: STAPHYLOCOCCUS AUREUS QUANTITATION MANY STAPHYLOCOCCUS AUREUS: REACTION AMPICILLIN >8 AXEL AMP/SULBACTAM (UNASYN) <8/4 S AUGMENTIN (AMOX/K CLAVULANATE) <4/2 S AZITHROMYCIN >4 R CEFAZOLIN <8 S CEFOXITIN SCREEN <4 NEG CLINDAMYCIN <0.5 S ERYTHROMYCIN >4 R GENTAMICIN <4 S INDUCIBLE CLINDAMYCIN TEST <4/0.5 NEG LINEZOLID <2 S OXACILLIN 0.5 S PENICILLIN >8 AXEL PIPERACILLIN/TAZOBACTAM <4 S RIFAMPIN <1 S TETRACYCLINE <4 S TRIMETH/SULFA <0.5/9.5 S MEROPENEM <4 S DAPTOMYCIN <1 S CEFTAROLINE <0.5 S Normal [facility] Comment on above: Order Comment: [place]: [facility] 09-18-2021 [facility] REPORT Normal [facility] DATE OF SERVICE: REASON OF VISIT: Wound of the right arm. HISTORY OF PRESENT ILLNESS: This is an 80-year-old male who presents with wound of the right arm which has been going on for the last 2 weeks. He scraped his arm with a chair. He was doing wound care at home. He can use his arm normally. No other problems at this visit. REVIEW OF SYSTEMS: Normal. ALLERGIES: DEMEROL. MEDICATIONS: List was reviewed. PHYSICAL EXAMINATION: He is awake, alert, not in distress. No dyspnea. Temperature is 97.3, blood pressure 130/62, pulse 61, respirations 17, pulse oximetry 98% on room air. Pain score 0/10. His anterior right forearm revealed an area of swelling, erythema, with induration of the area on the ulnar side of the mid forearm about 2 cm in size. There is open skin with yellowish slough at the center. There is no pus or smelly fluid discharge. No fluctuation. I obtained a culture from that yellow slough. Neurovascular exam was normal. The rest of the exam was normal. He was using his arm normally. [facility] PATIENT NAME: SAMIA RIVERA [address] [facility] [address] [place] MEDICAL REC #: [id number] [place] [address] [facility] REPORT [facility] PHYSICIAN ASSESSMENT: Infected wound right forearm. PLAN: Clinical findings were discussed with the patient in detail. Wound cleaning and dressing were done. They will continue the wound care at home. I prescribed him dicloxacillin 500 mg 3 times a day for 10 days with no refill. I explained to him that it is very important to follow with a doctor for further evaluation and care. Tylenol as needed, and keep the area dry, clean, and continue wound care at home. They understand and agree. Regino Sparks MD [id number] SSI File#: [id number] END OF DOCUMENT / CHANGE LOG FOLLOWS Last Edited By Elec. Signed By Regino Sparks MD #PAWPR Regino Sparks MD #PAWPR on 09/20/2021 13:15 ET on 09/20/2021 13:15 ET Revision Number - 2 [facility] PATIENT NAME: SAMIA RIVERA [address] MEDICAL REC #: [id number] [place] [address] [facility] REPORT [facility] PHYSICIAN Verified/Reviewed by 09/20/21 1315 PAWPR [facility] PATIENT NAME: SAMIA RIVERA [facility] [address] [place] MEDICAL REC #: [id number] [place] [address] [facility] REPORT [facility] PHYSICIAN Normal [facility] MSCon 11-01-2020 [facility] REPORT Normal [facility] DATE OF SERVICE: HISTORY OF PRESENT ILLNESS: This is an 79-year-old male who presents today stating that he has a lump on the left forearm, redness, and some sores on his shoulder from scratching. He got an abrasion on his arm and that is what caused this. He started picking this area on his left arm. ALLERGIES: DEMEROL. PAST MEDICAL HISTORY: Positive for arthritis, high blood pressure, eye disease, seizures, spinal surgery, ear, nose and throat surgery. Nonsmoker, nondrinker. FAMILY HISTORY: Positive for high blood pressure and cancer. SOCIAL HISTORY: Unremarkable. PHYSICAL EXAMINATION: Weight 180 pounds. Blood pressure is 110/60. Pulse 64. Respirations 20. Temperature is 97.5. Pulse oximetry is 99% on room air. This is an 79-year-old male. He has an abscess on the left forearm. It looks like an abrasion that he has picked, and it has gotten infected. It is about 2 cm in diameter, elevated from the normal skin lines by about 5 mm. I do not think it is a good idea to open this. He is picking at everything. I told him to try to leave it [facility] PATIENT NAME: SAMIA RIVERA [address] [facility] [address] [place] MEDICAL REC #: [id number] [place] [address] [facility] REPORT [facility] PHYSICIAN alone and lets just get him on an antibiotic, and I told him to switch soaps to an antibacterial soap like Dial. They wanted their medications sent into [facility], so I did do that. IMPRESSION: Abscess of the left forearm. PLAN: Rest. Use a good soap, such as Dial bar soap. He is given Keflex 500 three times a day; Bactrim DS 1 p.o. b.i.d. with food, dispense 20 and loratadine 10 mg, dispense 30, one a day, and those were all E-scribed. I told him to make sure that they call. They said they wanted their prescriptions delivered to their house. There was nowhere for me to jennifer that on these prescriptions, so I told them to call tomorrow morning to make sure that they do that. He did not know all of his medications; he only knew omeprazole and something for blood pressure. From old charts, we were able to get omeprazole, irbesartan, Tylenol, fish oil, Centrum, so hopefully there will not be any other medications that would be a problem with what we gave him. Oralia Aguirre, DO /[id number] [facility] PATIENT NAME: SAMIA RIVERA Dr. Frye MEDICAL REC #: [id number] [place] [address] [facility] REPORT STATCARE PHYSICIAN SSI File#: [id number] END OF DOCUMENT / CHANGE LOG FOLLOWS Last Edited By Elec. Signed By Oralia Aguirre DO #Oralia Keene DO #JOSE on 11/12/2020 09:53 ET on 11/12/2020 09:53 ET Revision Number - 2 Verified/Reviewed by 11/12/20 0953 JOSE [facility] PATIENT NAME: SAMIA RIVERA Dr. Frye MEDICAL REC #: [id number] [place] [address] [facility] REPORT STATCARE PHYSICIAN Normal [facility] Encounters Encounter Date Encounter Type Care Provider Facility Start: 10-15-2024 ambulatory Jeniffer Loco ty:[facility] Start: 08-16-2024 End: 08-20-2024 ambulatory JENNIFER VELIZ Facility:[id number] Start: 07-01-2024 End: 07-01-2024 ambulatory JENNIFER VELIZ Facility:[id number] Start: 04-01-2024 End: 04-01-2024 ambulatory CURTIS ANNA Facility:[id number] Start: 04-01-2024 End: 04-01-2024 ambulatory CURTIS ANNA Facility:[id number] Start: 03-15-2024 End: 03-15-2024 ambulatory JENNIFER VELIZ Facility:[id number] Start: 02-17-2024 End: 02-21-[address] JENNIFER VELIZ MD Facility:A Start: 02-17-2024 End: 02-21-2024 Encounter for general adult medical examination without abnormal findings DR JENNIFER VELIZ MD Facility:A Start: 02-27-2023 End: 03-03-2023 Evaluation and management of inpatient DR JENNIFER VELIZ MD Facility:A Start: 02-26-2023 End: 03-03-[address] JENNIFER VELIZ MD Facility:A Start: 12-10-[address] ARNALDO HALEY MD Facility:A Start: 09-06-2022 End: 09-11-2022 ambulatory RICA ROMAN NUTRITION ASSOCIATE-SOIL CHECKER Facility:A Start: 09-02-2022 End: 09-07-2022 ambulatory RICA ROMAN NUTRITION ASSOCIATE-SOIL CHECKER Facility:A Start: 09-02-2022 End: 09-07-2022 Encounter for general adult medical examination without abnormal findings RICA ROMAN NUTRITION ASSOCIATE-SOIL CHECKER Facility:A Payers Date Payer Category Payer Self-pay 2024 Unknown [id number] 2023 Medicare [id number] 2018 Private Health Insurance [id number] 1940 Unknown [id number] 2.16.8 [id number] 1938 Unknown [id number] 2.16.8 [id number] 1938 Unknown [id number] 2.16.8 [id number] 1938 Unknown [id number] 2.16.8 [id number] 1938 Unknown [id number] 2.16.8 [id number] 1938 Unknown [id number] 2.16.8 [id number] Clinical Notes 04-01-2024 to 08-20-2024 Note Date & Type Note Facility 08-20-2024 Note HNO ID: [id number] Author: KONSTANTIN ANDERSON, RN Service: Nursing Author Type: Registered Nurse Type: Nursing Progress Note Filed: 08/20/2024 16:13 Note Text: [facility] 08-20-2024 Note HNO ID: [id number] Author: EMELYN FAITH RN Service: Care Management Author Type: Registered Nurse Type: Care Mgt Progress Note Filed: 08/20/2024 11:16 Note Text: CARE MANAGEMENT DISCHARGE NOTE SERVICE DATE: August 20, 2024 SERVICE TIME: 11:14 AM Admission Date: 08/16/2024 LOS: 0 days Discharge Arrangement Discharge Arrangement: Residential Facility Services Arranged Residential Facility Provider Name: [facility] Caregiver Assessment Caregiver is ready, willing and able to meet the patient's needs as recommended by the inter-professional team: Yes Name of Caregiver: facility staff Transportation Arrangements Transportation Arrangements: Ambulance Transportation Agency and Phone #:: Radu Don [phone] Date of Trip: 08/20/24 Time of Trip: 1600 Type of Service: BLS Non-emergency Is Patient Medicaid Pending?: No Research Recruiter Location: [facility] Destination: [id number] [place] [address] Handoff Communication: Handoff to: Specialty Choreography Director Specialty Choreography Director Name/Phone: Jayson BURT [phone] Additional Information: Discharge Information Row Name ED to Hosp-Admission (Current) from 08/16/2024 in MR 9M TCU/MED Residential Facility Agency [facility] [address] [facility] [address] PT/OT recommending SNF. Patient and spouse are agreeable. FOC list provided. [facility] the [facility]. [facility] referral sent and they have accepted. Precert was obtained by the facility and is valid 08/19-08/24. Auth # [id number]. PASRR and all forms completed. Patient will require transport and is agreeable to any potential out of pocket cost associated with transport. All parties aware of and agreeable to discharge plans. All updates sent via careport. Bedside RN to call report to the facility. Case Closed. SIGNATURE: Emelyn Faith RN PATIENT NAME: Samia Rivera DATE: August 20, 2024 TIME: 11:14 AM [facility] 08-19-2024 Note HNO ID: [id number] Author: CAROLINE CAMERON RN Service: Care Management Author Type: Registered Nurse Type: Care Mgt Progress Note Filed: 08/19/2024 14:22 Note Text: CARE MANAGEMENT PROGRESS NOTE SERVICE DATE: 08/19/2024 SERVICE TIME: 2:18 PM LOS: 0 days Post-Acute Discharge Planning Patient Goal(s): General wellness, Increase strength [place]ign[place] of Choice Explained: Discharge Planning Participant(s): Patient/Family Comments: Anticipated # of Days Until Discharge: Transport at Discharge: Needs Prior to Discharge: Post-Acute Discharge Plan: Patient confused, Hx Dementia. Per , plan is for [facility] ([facility]) at d/c, facility accepted. [facility] to assist SNF with Precert. PT/OT notes AND updates uploaded to facility. [facility] to setup transport at d/c. D/C packet and transport form completed. PASRR completed. Observation patient. On room air. SIGNATURE: Caroline Cameron RN PATIENT NAME: Samia Rivera DATE: August 19, 2024 TIME: 2:18 PM [facility] 08-19-2024 Note HNO ID: [id number] Author: UMANG WODO MD Service: Hospital Medicine Author Type: Physician Type: Progress Notes Filed: 08/19/2024 13:05 Note Text: INPATIENT PROGRESS NOTE SERVICE DATE: 08/19/2024 HOSPITAL COURSE: Subjective CHIEF COMPLAINT: Recurrent falls INTERVAL HPI: Seen and examined Reported well-tolerated right foot pain Otherwise unremarkable Current Outpatient Medications Medication Instructions sertraline (ZOLOFT) 25 mg, ORAL, DAILY tamsulosin (FLOMAX) 0.4 mg, ORAL, DAILY Current Facility-Administered Medications Medication Dose Route Frequency heparin 5,000 Units injection 5,000 Units SUBCUTANEOUS q 12 H NaCl 0.9% iv flush bag 20 mL INTRAVENOUS PRN aluminum-magnesium hydroxide-simethicone 200-200-20 mg/5 mL 30 mL 30 mL ORAL DAILY PRN ondansetron 4 mg tab(s) (ZOFRAN) 4 mg ORAL q 6 H PRN Or ondansetron (PF) 4 mg injection (ZOFRAN) 4 mg INTRAVENOUS q 6 H PRN polyethylene glycol 3350 17 g packet 17 g ORAL DAILY PRN acetaminophen 650 mg tab(s) (TYLENOL) 650 mg ORAL q 6 H PRN HYDROcodone 5 mg - acetaminophen 325 mg tablet (NORCO) 1 tablet ORAL q [address] 40 mg tab(s) (PROTONIX) 40 mg ORAL DAILY (6 AM) miconazole 2 % 1 application topical powder 1 application TOPICAL BID Objective PHYSICAL EXAM: General: Alert oriented x 1-2 HEENT: Normal cephalic, atraumatic, PERRLA, TM's normal, Nose clear, Mouth normal Neck: Negative hepatojugular reflux or jugular venous distention, negative carotid bruit. Lungs: Clear to auscultation, no wheezing, rales, or rhonchi. Cardiac: Regular rhythm and rate, S1-S2 within normal limits, no murmurs, gallops were appreciated, no rubs. Abdomen: Soft, nontender, nondistended, no HSM detected, bowel sounds are active. Dry skin Glucose Date Value 08/18/2024 101 mg/dL 08/14/2019 101 MG/DL Potassium Date Value 08/18/2024 4.2 mmol/L 08/14/2019 4.2 MMOL/L Sodium Date Value 08/18/2024 135 mmol/L 08/14/2019 136 MMOL/L Chloride Date Value 08/18/2024 104 mmol/L 08/14/2019 106 MMOL/L CO2 Date Value 08/18/2024 22 mmol/L 08/14/2019 21 MMOL/L Creatinine Date Value 08/18/2024 1.50 mg/dL 08/14/2019 1.060 MG/DL BUN Date Value 08/18/2024 26 mg/dL 08/14/2019 24 MG/DL Anion Gap Date Value 08/18/2024 9 mmol/L 08/14/2019 8 MMOL/L Calcium (MG/DL) Date Value 08/14/2019 7.8 Calcium, Total (mg/dL) Date Value 08/18/2024 9.3 Estimated Creatinine Clearance: 43.2 mL/min (A) (based on SCr of 1.5 mg/dL (H)). CBC with diff: WBC 6.32 08/17/2024 RBC 3.29 08/17/2024 Hemoglobin 10.6 08/17/2024 Hematocrit 31.6 08/17/2024 MCV 96.0 08/17/2024 MCH 32.2 08/17/2024 MCHC 33.5 08/17/2024 RDW-CV 13.8 08/17/2024 Platelet Count 126 08/17/2024 MPV 9.4 08/17/2024 Neutrophils % 69.1 08/16/2024 Lymphocytes % 16.5 08/16/2024 Fulton% 12.3 08/16/2024 Eosinophils % 1.4 08/16/2024 Basophils % 0.5 08/16/2024 Abs Neut 4.57 08/16/2024 Abs Fulton 0.81 08/16/2024 Abs Eosin 0.09 08/16/2024 Abs Baso 0.03 08/16/2024 BP 116/66 Pulse 61 Temp (Src) 97.6 (Oral) Resp 19 Ht 6' 4 (1.93m) Wt 187 lb 2.7 oz (84.9kg) SpO2 100% BMI 22.79 kg/(m2). O2 Therapy: Room Air DATA: Diagnostic tests reviewed for today's visit: Most recent labs and imaging results. Assessment/Plan Principal Problem: 83 years old with past medical history of dementia, sick sinus syndrome status post pacemaker, CKD stage IIIb, hypertension, secondary hyperparathyroidism, BPH and depression presented on account of frequent recurrent falls with generalized weakness over the last few weeks. In the ED, vital signs are unremarkable. CMP showed creatinine 1.75 with a CO2 of 20. CBC showed hemoglobin of 12, D-dimer 63939. Viral panel unremarkable. Imaging showed deformity change. Otherwise unremarkable Recurrent falls Generalized weakness Moderate T12 compression deformity Moderate to severe degenerative changes of mild and lower spine [] PT and OT recommended SNF, pending [] Pain medication [] Follow-up as an outpatient Right foot pain - X-ray of the foot showed minimally impacted fracture of the 2nd through 4th metatarsal with osteopenia and diffuse soft tissue -Podiatry was consulted can weight-bear as tolerated in a surgical shoe with a walker if tolerable Shortness of breath Elevated D-dimer -Reported some chest pain and shortness of breath on admission however patient is demented and poor historian - I did ask him hide reported no chest pain - D-dimer was obtained by admitting provider and came back [id number] - No leg swelling -Ultrasound of legs with no DVT - V/Q with low probability Chronic comorbidities PPI Dementia Depression CKD Anemia [] Continue home medications as deemed appropriate CODE STATUS is full code DVT prophylaxis heparin subcu The need for hospitalization- pending placement Medication and Non-Pharmacologic VTE Prophylaxis/Anticoagulants Anticoagulant AND Antipla (more content not included)... [facility] 08-18-2024 Note HNO ID: [id number] Author: UMANG WOOD MD Service: Hospital Medicine Author Type: Physician Type: Progress Notes Filed: 08/18/2024 13:00 Note Text: INPATIENT PROGRESS NOTE SERVICE DATE: 08/18/2024 HOSPITAL COURSE: Subjective CHIEF COMPLAINT: Recurrent falls INTERVAL HPI: Seen and examined No chest pain or shortness of breath or palpitation or fever or chills or nausea or vomiting Right pain is well-tolerated Current Outpatient Medications Medication Instructions sertraline (ZOLOFT) 25 mg, ORAL, DAILY tamsulosin (FLOMAX) 0.4 mg, ORAL, DAILY Current Facility-Administered Medications Medication Dose Route Frequency heparin 5,000 Units injection 5,000 Units SUBCUTANEOUS q 12 H NaCl 0.9% iv flush bag 20 mL INTRAVENOUS PRN aluminum-magnesium hydroxide-simethicone 200-200-20 mg/5 mL 30 mL 30 mL ORAL DAILY PRN ondansetron 4 mg tab(s) (ZOFRAN) 4 mg ORAL q 6 H PRN Or ondansetron (PF) 4 mg injection (ZOFRAN) 4 mg INTRAVENOUS q 6 H PRN polyethylene glycol 3350 17 g packet 17 g ORAL DAILY PRN acetaminophen 650 mg tab(s) (TYLENOL) 650 mg ORAL q 6 H PRN HYDROcodone 5 mg - acetaminophen 325 mg tablet (NORCO) 1 tablet ORAL q [address] 40 mg tab(s) (PROTONIX) 40 mg ORAL DAILY (6 AM) miconazole 2 % 1 application topical powder 1 application TOPICAL BID Objective PHYSICAL EXAM: General: Alert oriented x 1-2 HEENT: Normal cephalic, atraumatic, PERRLA, TM's normal, Nose clear, Mouth normal Neck: Negative hepatojugular reflux or jugular venous distention, negative carotid bruit. Lungs: Clear to auscultation, no wheezing, rales, or rhonchi. Cardiac: Regular rhythm and rate, S1-S2 within normal limits, no murmurs, gallops were appreciated, no rubs. Abdomen: Soft, nontender, nondistended, no HSM detected, bowel sounds are active. Dry skin Glucose Date Value 08/18/2024 101 mg/dL 08/14/2019 101 MG/DL Potassium Date Value 08/18/2024 4.2 mmol/L 08/14/2019 4.2 MMOL/L Sodium Date Value 08/18/2024 135 mmol/L 08/14/2019 136 MMOL/L Chloride Date Value 08/18/2024 104 mmol/L 08/14/2019 106 MMOL/L CO2 Date Value 08/18/2024 22 mmol/L 08/14/2019 21 MMOL/L Creatinine Date Value 08/18/2024 1.50 mg/dL 08/14/2019 1.060 MG/DL BUN Date Value 08/18/2024 26 mg/dL 08/14/2019 24 MG/DL Anion Gap Date Value 08/18/2024 9 mmol/L 08/14/2019 8 MMOL/L Calcium (MG/DL) Date Value 08/14/2019 7.8 Calcium, Total (mg/dL) Date Value 08/18/2024 9.3 Estimated Creatinine Clearance: 43.2 mL/min (A) (based on SCr of 1.5 mg/dL (H)). CBC with diff: WBC 6.32 08/17/2024 RBC 3.29 08/17/2024 Hemoglobin 10.6 08/17/2024 Hematocrit 31.6 08/17/2024 MCV 96.0 08/17/2024 MCH 32.2 08/17/2024 MCHC 33.5 08/17/2024 RDW-CV 13.8 08/17/2024 Platelet Count 126 08/17/2024 MPV 9.4 08/17/2024 Neutrophils % 69.1 08/16/2024 Lymphocytes % 16.5 08/16/2024 Fulton% 12.3 08/16/2024 Eosinophils % 1.4 08/16/2024 Basophils % 0.5 08/16/2024 Abs Neut 4.57 08/16/2024 Abs Fulton 0.81 08/16/2024 Abs Eosin 0.09 08/16/2024 Abs Baso 0.03 08/16/2024 BP 138/64 Pulse 60 Temp (Src) 97.7 (Oral) Resp 19 Ht 6' 4 (1.93m) Wt 186 lb 15.2 oz (84.8kg) SpO2 100% BMI 22.77 kg/(m2). O2 Therapy: Room Air DATA: Diagnostic tests reviewed for today's visit: Most recent labs and imaging results. Assessment/Plan Principal Problem: 83 years old with past medical history of dementia, sick sinus syndrome status post pacemaker, CKD stage IIIb, hypertension, secondary hyperparathyroidism, BPH and depression presented on account of frequent recurrent falls with generalized weakness over the last few weeks. In the ED, vital signs are unremarkable. CMP showed creatinine 1.75 with a CO2 of 20. CBC showed hemoglobin of 12, D-dimer 75901. Viral panel unremarkable. Imaging showed deformity change. Otherwise unremarkable Recurrent falls Generalized weakness Moderate T12 compression deformity Moderate to severe degenerative changes of mild and lower spine [] PT and OT [] Pain medication [] Follow-up as an outpatient Right foot pain - X-ray of the foot showed minimally impacted fracture of the 2nd through 4th metatarsal with osteopenia and diffuse soft tissue [] Consult podiatry Shortness of breath Elevated D-dimer -Reported some chest pain and shortness of breath on admission however patient is demented and poor historian - I did ask him hide reported no chest pain - D-dimer was obtained by admitting provider and came back [id number] - No leg swelling -Ultrasound of legs with no DVT - V/Q with low probability Chronic comorbidities PPI Dementia Depression CKD Anemia [] Continue home medications as deemed appropriate CODE STATUS is full code DVT prophylaxis heparin subcu The need for hospitalization-pending podiatry consult and placement Medication and Non-Pharmacologic VTE Prophylaxis/Anticoagulants Anticoagulant AND Antiplatelet Medications (From (more content not included)... [facility] 08-18-2024 Note HNO ID: [id number] Author: EMELYN FAITH RN Service: Care Management Author Type: Registered Nurse Type: Care Mgt Progress Note Filed: 08/18/2024 09:09 Note Text: CARE MANAGEMENT PROGRESS NOTE SERVICE DATE: 08/18/2024 SERVICE TIME: 9:07 AM LOS: 0 days Chart reviewed. Patient admitted from home with for falls, generalized weakness, chest pain. Ddimer elevated, pending US leg. Patient complained of right foot pain during therapy so XRAY foot ordered. PT recommending SNF. Patient confused, Hx dementia. CM called and spoke to , bev. Per , patient functionally independent in ADLs baseline, ambulatory with walker. Both patient and do not drive so they pay volunteers or pay for transport privately. Patient mentation baseline is alert to self and place but patient is not a wanderer per . Patient current with PCP listed in chart. Patient has no HCPOA. is legal NOK> CM discussed therapy rec for SNF this date. agreeable. [facility] Referral sent and they have accepted. PASRR and all forms completed. Pending OT note to start precert. Facility to start precert. Cot transport needed on dc and agreeable to potential OOP cost. Transport pended. DC packet on chart. CM will continue to follow. Barriers to discharge: OT eval, Precert Pending. SIGNATURE: Emelyn Faith RN PATIENT NAME: Samia Rivera DATE: August 18, 2024 TIME: 9:07 AM [facility] 08-17-2024 Note HNO ID: [id number] Author: EMELYN FAITH RN Service: Care Management Author Type: Registered Nurse Type: Care Mgt Progress Note Filed: 08/17/2024 15:19 Note Text: CARE MANAGEMENT PROGRESS NOTE SERVICE DATE: 08/17/2024 SERVICE TIME: 3:14 PM LOS: 0 days PT/OT recommending SNF. [facility]. PASRR and all forms completed. Precert has been started by the facility-pending. Patient will need ambulance transport at discharge and is agreeable to any potential out of pocket costs associated with transport. Transport referral pended. DC packet on chart SIGNATURE: Emelyn Faith RN PATIENT NAME: Samia Rivera DATE: August 17, 2024 TIME: 3:14 PM [facility] 08-17-2024 Note HNO ID: [id number] Author: DORIS YI RT(R) Service: ? Author Type: Technologist Type: Progress Notes Filed: 08/17/2024 14:57 Note Text: RADIOLOGY SERVICE PROGRESS NOTE SERVICE DATE: 08/17/2024 SERVICE TIME: 2:56 PM PATIENT IDENTITY VERIFICATION COMPLETED USING TWO (2) STANDARD IDENTIFIERS: Name and Date of confirmed by patient verbally FALL SCREENING: Has the patient had 2 falls in the last year or 1 fall with injury or currently using an Ambulatory Assistive Device (Walker, Cane, Wheelchair, Crutches, etc.)? Inpatient: Screened on floor PATIENT GENDER DATA: .male ALLERGIES: NA MEDICATIONS REVIEWED: Not applicable PATIENT RELEVANT IMPLANT DATA REVIEWED: Not Applicable PATIENT PRESENTS WITH AN IMPLANTABLE OR ATTACHED AIRPORT MAINTENANCE LABORER: NA CREATININE: Creatinine Date Value Ref Range Status 08/17/2024 1.62 (H) 0.50 - 1.40 mg/dL Final Comment: Patients receiving either N-Acetylcysteine (NAC) or Metamizole prior to venipuncture, may have falsely depressed results. 08/16/2024 1.75 (H) 0.50 - 1.40 mg/dL Final Comment: Patients receiving either N-Acetylcysteine (NAC) or Metamizole prior to venipuncture, may have falsely depressed results. 03/15/2024 1.56 (H) 0.50 - 1.40 mg/dL Final Comment: Patients receiving either N-Acetylcysteine (NAC) or Metamizole prior to venipuncture, may have falsely depressed results. Estimated Glomerular Filtration Rate Date Value Ref Range Status 08/17/2024 41 (L) >=60 mL/min/1.73m? Final Comment: Estimated Glomerular Filtration Rate (eGFR) is calculated using the 2020 CKD-EPI creatinine equation. This equation utilizes serum creatinine, sex, and age as parameters. The creatinine assay has traceable calibration to isotope dilution-mass spectrometry. Refer to KDIGO guidelines for clinical interpretation. In patients with unstable renal function, e.g. those with acute kidney injury, the eGFR may not accurately reflect actual GFR. eGFR- Date Value Ref Range Status 08/14/2019 Greater than 60 ML/MIN Final P.O.C.T. RESULTS: N/A August 17, [address] PERFORMED: No IV SITE: Inpatient - refer to LDA documentation POST EXAM PIV STATUS: Inpatient see LDA documentation PROCEDURE TYPE: VQ Scan: 0.8 mCi of Tc99m DTPA was inhaled. 5.9 mCi of Tc99m MAA was administered IV. ADMINISTRATION TIME: 1430/1455 PATIENT DISCHARGED TO: Patient taken to IP transport area for return to RNF/ICU/ED. Is this a therapy: No A Diagnostic radioactive procedure has taken place, with no further precautions necessary other than routine body substance precautions. More information regarding radiation safety can be found using this link: [email or web address] SIGNATURE: RT Nasir(R) PATIENT NAME: Samia Rivera DATE: August 17, 2024 TIME: 2:56 PM PAGER/CONTACT #: [facility] 08-17-2024 Note HNO ID: [id number] Author: KIRA TRUJILLO RN Service: Care Management Author Type: Registered Nurse Type: Care Mgt Initial Assessment Filed: 08/17/2024 13:12 Note Text: CARE MANAGEMENT: ASSESSMENT AND DISCHARGE PLAN SERVICE DATE: August 17, 2024 SERVICE TIME: 1:09 PM PCP: [facility]ENN[facility]EL[facility] MD Primary Contact: Extended Emergency Contact Information Primary Emergency Contact: Bev Reese Relation: Spouse Admission Status: Observation Insurance Provider: [facility] Discharge Planning requested by: Per Department Practice Potential Transition Plans Residential Facility/Intermediate Care Facility Advance Directives Current Advance Directive: None Auto Washer Attempted to Assist with AD Completion: Yes Action: Education Provided Current Living Arrangements and Support Lives with: Spouse/significant other Type of Residence: Private Residence (House) Support: Spouse/significant other How do you manage to accomplish the following: Independent: Ambulation, Bathe/Shower, Dress, Going to the bathroom Needs Assistance: Meals/Meal Prep Dependent: Medication Management, Transportation to appointments/community Current Services/Equipment Current Post-Acute Service(s): DME Current DME Type: Standard walker Discharge Planning Patient Goal(s): General wellness, Increase strength Lign[place] of Choice Explained: Lignite of Choice Given: Yes Level of Care Discussed: Residential Facility Are you interested in bedside delivery of your medications? No Discharge Planning Participant(s): Spouse/significant other Patient/Family Comments: Caregiver Assessment: Caregiver is ready, willing and able to meet the patient's needs as recommended by the inter-professional team: No Transport at Discharge: Transportation Arrangements: Ambulance Was transportation financial coverage discussed with family?: Spouse Financial Care Management Responsibility: None Needs Prior to Discharge: Precert' Intimate Partner Violence We have begun to talk to patients about safe and healthy relationships because it can have a large impact on your health. Do you feel safe around your partner or ex-partner?: Yes Food Insecurity Within the past 12 months, you worried that your food would run out before you got the money to buy more.: Never true Within the past 12 months, the food you bought just didn't last and you didn't have money to get more.: Never true Transportation Needs In the past 12 months, has lack of transportation kept you from medical appointments or from getting medications?: No In the past 12 months, has lack of transportation kept you from meetings, work, or from getting things needed for daily living?: No Housing Stability In the last 12 months, was there a time when you were not able to pay the mortgage or rent on time?: No At any time in the past 12 months, were you homeless or living in a snf (including now)?: No Utilities In the past 12 months has the [employer], [employer], [employer], or [employer] threatened to shut off services in your home?: No Post-Acute Discharge Plan: Chart reviewed. Patient admitted from home with for falls, generalized weakness, chest pain. Ddimer elevated, pending US leg. Patient complained of right foot pain during therapy so XRAY foot ordered. PT recommending SNF. Patient confused, Hx dementia. CM called and spoke to , bev, this date. Per , patient functionally independent in ADLs baseline, ambulatory with walker. Both patient and do not drive so they pay volunteers or pay for transport privately. Cot transport needed on dc and agreeable to potential OOP cost. Patient mentation baseline is alert to self and place but patient is not a wanderer per . Patient current with PCP listed in chart. Patient has no HCPOA. is legal NOK> CM discussed therapy rec for SNF this date. agreeable. FOC is 1. [facility] and 2. [facility]. Referrals sent this date pending acceptance, auth needed. CM following for snf placement, auth needed SIGNATURE: Kira Trujillo RN PATIENT NAME: Samia Rivera DATE: August 17, 2024 TIME: 1:09 PM [facility] 08-17-2024 Note HNO ID: [id number] Author: UMANG WOOD MD Service: Hospital Medicine Author Type: Physician Type: Progress Notes Filed: 08/17/2024 12:10 Note Text: INPATIENT PROGRESS NOTE SERVICE DATE: 08/17/2024 HOSPITAL COURSE: Subjective CHIEF COMPLAINT: Recurrent falls INTERVAL HPI: Seen and examined Reported no chest pain or fever or chills Reported some right foot pain Current Outpatient Medications Medication Instructions sertraline (ZOLOFT) 25 mg, ORAL, DAILY tamsulosin (FLOMAX) 0.4 mg, ORAL, DAILY Current Facility-Administered Medications Medication Dose Route Frequency heparin 5,000 Units injection 5,000 Units SUBCUTANEOUS q 12 H NaCl 0.9% iv flush bag 20 mL INTRAVENOUS PRN aluminum-magnesium hydroxide-simethicone 200-200-20 mg/5 mL 30 mL 30 mL ORAL DAILY PRN ondansetron 4 mg tab(s) (ZOFRAN) 4 mg ORAL q 6 H PRN Or ondansetron (PF) 4 mg injection (ZOFRAN) 4 mg INTRAVENOUS q 6 H PRN polyethylene glycol 3350 17 g packet 17 g ORAL DAILY PRN acetaminophen 650 mg tab(s) (TYLENOL) 650 mg ORAL q 6 H PRN HYDROcodone 5 mg - acetaminophen 325 mg tablet (NORCO) 1 tablet ORAL q [address] 40 mg tab(s) (PROTONIX) 40 mg ORAL DAILY (6 AM) miconazole 2 % 1 application topical powder 1 application TOPICAL BID Objective PHYSICAL EXAM: General: Alert oriented x 1 HEENT: Normal cephalic, atraumatic, PERRLA, TM's normal, Nose clear, Mouth normal Neck: Negative hepatojugular reflux or jugular venous distention, negative carotid bruit. Lungs: Clear to auscultation, no wheezing, rales, or rhonchi. Cardiac: Regular rhythm and rate, S1-S2 within normal limits, no murmurs, gallops were appreciated, no rubs. Abdomen: Soft, nontender, nondistended, no HSM detected, bowel sounds are active. Dry skin Glucose Date Value 08/17/2024 91 mg/dL 08/14/2019 101 MG/DL Potassium Date Value 08/17/2024 4.3 mmol/L 08/14/2019 4.2 MMOL/L Sodium Date Value 08/17/2024 137 mmol/L 08/14/2019 136 MMOL/L Chloride Date Value 08/17/2024 107 mmol/L 08/14/2019 106 MMOL/L CO2 Date Value 08/17/2024 23 mmol/L 08/14/2019 21 MMOL/L Creatinine Date Value 08/17/2024 1.62 mg/dL 08/14/2019 1.060 MG/DL BUN Date Value 08/17/2024 32 mg/dL 08/14/2019 24 MG/DL Anion Gap Date Value 08/17/2024 7 mmol/L 08/14/2019 8 MMOL/L Calcium (MG/DL) Date Value 08/14/2019 7.8 Calcium, Total (mg/dL) Date Value 08/17/2024 9.5 Estimated Creatinine Clearance: 40 mL/min (A) (based on SCr of 1.62 mg/dL (H)). CBC with diff: WBC 6.32 08/17/2024 RBC 3.29 08/17/2024 Hemoglobin 10.6 08/17/2024 Hematocrit 31.6 08/17/2024 MCV 96.0 08/17/2024 MCH 32.2 08/17/2024 MCHC 33.5 08/17/2024 RDW-CV 13.8 08/17/2024 Platelet Count 126 08/17/2024 MPV 9.4 08/17/2024 Neutrophils % 69.1 08/16/2024 Lymphocytes % 16.5 08/16/2024 [place]% 12.3 08/16/2024 Eosinophils % 1.4 08/16/2024 Basophils % 0.5 08/16/2024 Abs Neut 4.57 08/16/2024 Abs [place] 0.81 08/16/2024 Abs Eosin 0.09 08/16/2024 Abs Baso 0.03 08/16/2024 BP 122/52 Pulse 60 Temp (Src) 97.8 (Oral) Resp 18 Ht 6' 4 (1.93m) Wt 186 lb 15.2 oz (84.8kg) SpO2 100% BMI 22.77 kg/(m2). O2 Therapy: Room Air DATA: Diagnostic tests reviewed for today's visit: Most recent labs and imaging results. Assessment/Plan Principal Problem: 83 years old with past medical history of dementia, sick sinus syndrome status post pacemaker, CKD stage IIIb, hypertension, secondary hyperparathyroidism, BPH and depression presented on account of frequent recurrent falls with generalized weakness over the last few weeks. In the ED, vital signs are unremarkable. CMP showed creatinine 1.75 with a CO2 of 20. CBC showed hemoglobin of 12, D-dimer 52330. Viral panel unremarkable. Imaging showed deformity change. Otherwise unremarkable Recurrent falls Generalized weakness Moderate T12 compression deformity Moderate to severe degenerative changes of mild and lower spine [] PT and OT [] Pain medication [] Follow-up as an outpatient Right foot pain -Obtain x-ray Chest pain Shortness of breath Elevated D-dimer -Reported some chest pain and shortness of breath on admission however patient is demented and poor historian - I did ask him hide reported no chest pain - D-dimer was obtained by admitting provider and came back [id number] - No leg swelling [] Giving CKD will obtain V/Q [] Will obtain ultrasound of both legs Chronic comorbidities PPI Dementia Depression CKD Anemia [] Continue home medications as deemed appropriate CODE STATUS is full code DVT prophylaxis heparin subcu Medication and Non-Pharmacologic VTE Prophylaxis/Anticoagulants Anticoagulant AND Antiplatelet Medications (From admission, onward) Start Dose Route Frequency Last Action Ordered Stop 08/16/242129 heparin 5,000 Units injection (Medical Risk Categories) 5,000 Units SUBCUTANEOUS EVERY 12 HOURS Given, 08/17 1013 08/16/242105 -- 08/16/242101 activ (more content not included)... [facility] 08-16-2024 Note SARS-COV-2 (AGENT OF COVID-19) RNA: Not detected INFLUENZA A RNA: Not detected INFLUENZA B RNA: Not detected RESPIRATORY SYNCYTIAL VIRUS (RSV) RNA: Not detected [facility] Comment on above: Performed By: #### 5 [id number] #### [facility] CLIA [id number] [facility] [address] [place] [id number] [place] 04-01-2024 Note HNO ID: [id number] Author: CURTIS ANNA MD Service: ? Author Type: Physician Type: Progress Notes Filed: 04/01/2024 15:45 Note Text: [facility] Department of Cardiovascular Medicine SECTION OF CARDIAC PACING and ELECTROPHYSIOLOGY OUTPATIENT VISIT DATE April 01, 2024 OUTPATIENT VISIT TYPE NEW PRIMARY CARE PHYSICIAN: To use this Smartlink, specify the provider ID whose address you want to display, e.g., .[email or web address][1 (where 1 is the provider ID). REFERRING PHYSICIAN: Self CHIEF COMPLAINT: Follow up on device, to establish care HISTORY OF PRESENT ILLNESS: Mr. Rivera is a 83 year old male with past medical history of sinus node dysfunction s/p [employer] Joshua dual chamber pacemaker implantation in 2020 OSH, chronic renal insufficiency stage III, gait instability, GERD, HTN, memory loss, neurodermatitis. He is referred to establish care with device management. Patient seen alone, due to some memory impairment, there may be some gaps in the history. Reports no chest pain and no breathing issues Gets lightheadedness if change postural quickly Has had episode of fall recently where lost balance at home, normally uses a walker Reports some memory decline over the years and has become a real problem for him. Lives at home with Gets home help with cleaning No smoking no alcohol. PAST CARDIAC HISTORY: PAST MEDICAL HISTORY Diagnosis Date Chronic anxiety Chronic back pain Chronic pruritus Chronic renal insufficiency, stage III (moderate) (HCC) Gait instability GERD (gastroesophageal reflux disease) HTN (hypertension) Memory loss Neurodermatitis Presence of cardiac pacemaker 11/06/2020 [place] Situational depression SSS (sick sinus syndrome) (HCC) Vertigo PAST SURGICAL HISTORY Procedure Laterality Date (NEW IMPLANT DUAL CHAMBER PPM) INSERTION OF A NEW PERMANENT PACEMAKER W/ INSERTION OF NEW TRANSVENOUS ELECTRODE(S) ATRIAL AND VENTRICULAR Right 11/06/2020 [facility] [place] ARTHROPLASTY HEMIARTHROPLASTY Right 08/01/2019 CHOLECYSTECTOMY 1983 CYST/MOLE REMOVAL 2018 on tailbone LAPAROSCOPY, ORCHIOPEXY 1965 PERCUTANEOUS LUMBAR DISKECTOMY 1990 SEPTOPLASTY 1985 TONSILLECTOMY AND ADENOIDECTOMY AGE 10/> 1973 SOCIAL HISTORY Social History Tobacco Use Smoking status: Never Passive exposure: Never Smokeless tobacco: Never Vaping Use Vaping status: Never Used Substance Use Topics Alcohol use: Not Currently Drug use: Never FAMILY HISTORY Family history unknown: Yes ALLERGIES: ALLERGIES Allergen Reactions Meperidine GI Upset, Unknown Oxycodone Mental Status Change MEDICATIONS: tamsulosin (FLOMAX) 0.4 mg Take 0.4 mg by mouth once daily. sertraline (ZOLOFT) 25 mg tablet Take 25 mg by mouth once daily. PHYSICAL EXAMINATION: BP 119/60 (BP Site: Left Arm, BP Position: Sitting, BP Cuff Size: Regular Adult) Pulse 71 Ht 182.9 cm (6') Wt 87.1 kg (192 lb) SpO2 98% BMI 26.04 kg/m? Alert comfortable Soft distant HS Right sided pacemaker - prominent but site looks good Calves SNT no pitting edema CARDIOVASCULAR MEDICINE TESTING: Device Check 04/01/2024:Patient's device was interrogated for medical necessity in the office today by my staff. There was normal device function. Approximately 7.3 years until SMILEY. There were normal/stable sensing/threshold/impedance values. Ap 65 %, Traffic Control Officer 22 %. There was 1 episode of Atrial Fibrillation lasting 4 seconds on 02/24/2024. There were no ventricular arrhythmias detected. OK shaped histograms. No permanent changes were made. Electrocardiogram: SR 69bpm I have personally reviewed the Electrocardiogram. Assessment IMPRESSION: Mr. Rivera is a 83 year old male with history of sinus node dysfunction s/p dual chamber ([employer] Joshua) pacemaker implantation in 2020 OSH. Device check today shows 7.3 years remaining, AP 65% and 3RD GRADE TEACHER 22%with satisfactory pacing parameters. PLAN AND RECOMMENDATIONS: Annual clinic FU Echo and CXR at baseline Recommended patient to establish care with a primary physician Curtis Anna, [facility], FRACP Staff Embedded Software Manager, Cardiac Electrophysiology and Pacing Section Department of Cardiovascular Medicine Heart, Vascular and Thoracic [facility], [facility] Summary Purpose Family History No Family History Records FoundNo Family History Records FoundNo Family History Records FoundNo Family History Records FoundNo Family History Records Found Advance Directives No Advanced Directives Records FoundNo Advanced Directives Records FoundNo Advanced Directives Records FoundNo Advanced Directives Records FoundNo Advanced Directives Records Found Additional Source Comments (unrecognized sect ion and content) No Status Records FoundNo Status Records FoundNo Status Records FoundNo Status Records FoundNo Status Records Found INFORMATION SOURCE (unrecogn ized section and content) DATE CREATED AUTHOR 09/22/2021 [facility] Ofelia romano [place] DATE CREATED AUTHOR AUTHOR'S ORGANIZ ATION 03/08/2023 [facility] ([place]) DATE CREATED AUTHOR AUTHOR'S ORGANIZ ATION 02/23/2024 [facility] DATE CREATED AUTHOR AUTHOR'S ORGANIZ ATION 08/24/2024 [facility] nter DATE CREATED AUTHOR AUTHOR'S ORGANIZ ATION 10/17/2024 [facility] FOR RECORDS PERTAINING TO PATIENTS WHO ARE OR HAVE BEEN ENROLLED IN A CHEMICAL DEPENDENCY/SUBSTANCEABUSE PROGRAM, SOME INFORMATION MAY BE OMITTED. This clinical summary was aggregated from multiple sources. Caution should be exercised in using it in the provision of clinical care. This summary normalizes information from multiple sources, and as a consequence, information in this document may materially change the coding, format and clinical context of patient data. In addition, data may be omitted in some cases. CLINICAL DECISIONS SHOULD BE BASED ON THE PRIMARY CLINICAL RECORDS. [employer] [facility]. provides no warranty or guarantee of the accuracy or completeness of information in this document.
[2025-01-21 00:44] LABS: Glucose, Dipstick Normal (Normal); Ketone-Dipstick Negative (Negative); Leukocyte Esterase-Dipstick Negative /ul (Negative); Nitrite-Dipstick Negative (Negative); Occult Blood-Urine Negative /ul (Negative); Protein-Dipstick 15 mg/dl (Negative); Specific Gravity, Urine 1.015 (1.002-1.030); Urine Bilirubin Dipstick Negative (Negative)
[2025-01-21 01:04] LABS: Color, Urine Yellow (Yellow)
[2025-01-21 03:38] LABS: Hematocrit 33.9 % (40-54); Hemoglobin 11.3 g/dL (13.0-16.5); Immature Granulocytes Count 0.020 X10^3/uL (0.0-0.0); Mean Corp Hgb Conc 33.3 g/dL (32-36); Mean Corpuscular Volume 92.9 fL (80-94); Mean Platelet Vol. 10.0 fl (6.2-12.0); NRBC Flagged by Analyzer 0 % (0-5); Platelet Count 127 K/mm3 (150-450); RBC Distribution Width CV 14.8 % (11.6-14.6); RBC Distribution Width SD 50.0 fl (35.1-43.9); Red Blood Count 3.65 M/mm3 (4.6-6.2); White Blood Count 9.5 K/mm3 (4.4-11.0)
[2025-01-21 04:08] LABS: Anion Gap 11 (5-15); BUN 42 mg/dL (4-19); BUN/Creat Ratio 24.4 RATIO (10-20); Calcium,Total 8.6 mg/dL (7.6-11.0); Carbon Dioxide 18.6 mmol/L (21.0-32.0); Chloride 109 mmol/L (98-108); Estimated Creatinine Clearance 36.26 ml/min (50-250); Glucose 120 mg/dL (70-99); Potassium 4.9 mmol/L (3.3-5.1)
[2025-01-21] MEDS: 0.9% Normal Saline (1000mL) 1,000 ML 100 ML IV (05:39)
--- NOTE | 2025-01-21 08:30 | PCM.PN.HOSP ---
Reason for Visit Chief Complaint: History unclear. 1 episode of coffee-ground vomiting. Altered mental status. Cough unclear duration Objective Data Objective Data Vital Signs: Vital Signs Temp Pulse Resp BP Pulse Ox O2 Del Method O2 Flow Rate 98 F 63 20 H 119/69 92 Nasal Cannula 3 01/21/25 02:20 01/21/25 02:20 01/21/25 02:20 01/21/25 02:20 01/21/25 03:15 01/21/25 03:15 01/21/25 03:15 Oxygen Flow Rate (L/min) 3 Oxygen Delivery Method Nasal Cannula Weight: 192 lb 0.362 oz Body Mass Index (BMI) 24.6 Intake & Output: Intake and Output for Last 24 Hours 01/19/25 01/20/25 01/21/25 23:59 23:59 23:59 Intake Total 2112.5 / 2112.5 1300 / 1300 Output Total 350 / 350 Balance 2112.5 / 1762.5 950 / 950 Lab / Micro Data 01/21/25 09:29 01/21/25 03:09 Labs: Laboratory Results - last 24 hr 01/20/25 10:15: WBC 13.2 H, RBC 4.65, Hgb 14.5, Hct 42.6, MCV 91.6, MCH 31.2, MCHC 34.0, RDW Std Deviation 47.8 H, RDW Coeff of Eva 14.4, Plt Count 153, MPV 9.4, Immature Gran % (Auto) 0.500, Neut % (Auto) 88.2 H, Lymph % (Auto) 3.4 L, [place] % (Auto) 7.7, Eos % (Auto) 0.0, Baso % (Auto) 0.2, Absolute Neuts (auto) 11.6 H, Absolute Lymphs (auto) 0.45 L, Nucleated RBC % 0, Sodium 137, Potassium 5.6 H, Chloride 102, Carbon Dioxide 20.2 L, Anion Gap 15, BUN 42 H, Creatinine 1.81 H, Estim Creat Clear Calc 35.55 L, Est GFR (MDRD) Non-Af 36 L, BUN/Creatinine Ratio 23.4 H, Glucose 161 H, Lactic Acid 3.1 H*, Calcium 9.7, Phosphorus 3.0, Magnesium 1.9, Total Bilirubin 0.43, AST 26, ALT 22, Alkaline Phosphatase 101, Total Protein 7.5, Albumin 4.0, Globulin 3.5, Albumin/Globulin Ratio 1.2, Lipase 26, Blood Type A POSITIVE, Antibody Screen NEGATIVE 01/20/25 10:35: PT 14.7, INR 1.1, APTT 24.5, Valproic Acid 10 L 01/20/25 14:48: Lactic Acid 2.6 H* 01/20/25 23:40: Urine Color Yellow, Urine Clarity Clear, Urine pH 6.0, Ur Specific [place] 1.015, Urine Protein 15 H, Urine Glucose (UA) Normal, Urine Ketones Negative, Urine Occult Blood Negative, Urine Nitrite Negative, Urine Bilirubin Negative, Urine Urobilinogen Normal, Ur Leukocyte Esterase Negative, Urine RBC 0 SEEN, Urine WBC 0 SEEN, Ur Squamous Epith Cells 0 SEEN, Urine Bacteria 0 SEEN, Urine Mucus 0 SEEN 01/21/25 03:09: WBC 9.5, RBC 3.65 L, Hgb 11.3 L, Hct 33.9 L, MCV 92.9, MCH 31.0, MCHC 33.3, RDW Std Deviation 50.0 H, RDW Coeff of Eva 14.8 H, Plt Count 127 L, MPV 10.0, Immature Gran % (Auto) 0.200, Neut % (Auto) 77.3 H, Lymph % (Auto) 9.2 L, [place] % (Auto) 12.9 H, Eos % (Auto) 0.2, Baso % (Auto) 0.2, Absolute Neuts (auto) 7.3, Absolute Lymphs (auto) 0.87, Nucleated RBC % 0, Sodium 139, Potassium 4.9, Chloride 109 H, Carbon Dioxide 18.6 L, Anion Gap 11, BUN 42 H, Creatinine 1.70 H, Estim Creat Clear Calc 36.26 L, Est GFR (MDRD) Non-Af 39 L, BUN/Creatinine Ratio 24.4 H, Glucose 120 H, Calcium 8.6 Micro: Microbiology 01/20/25 23:40 Urine Catheter - Catheter Legionella Antigen - Final 01/20/25 23:40 Urine Catheter - Catheter Streptococcus pneumoniae Antigen (M - Final 01/20/25 18:05 Nasal Secretion MRSA (PCR) - Preliminary 01/20/25 12:30 Mucosa - Nose SARS-CoV-2, Influenza & RSV (PCR) - Final 01/20/25 11:30 Stool Stool Occult Blood (MAG) - Final Occult Blood Positive Radiography Diagnostic Testing: Radiology Impression Chest/Abdomen/Pelvis CT 01/20/25 11:18 IMPRESSION: No suspicious solid organ abnormality, nonobstructing renal stones. Retained stool throughout the colon with scattered diverticula, no CT evidence of acute diverticulitis, stool may be impacted No free intraperitoneal fluid, air, or suspicious adenopathy Degenerative bony changes Reading Location: [id number] Rhythm Strip Rhythm Strip: Sinus Rhythm Rate: 69 Ectopy: None Physical Exam Narrative Nurse called me that patient is not responding, hypoxic. On 100% nonrebreather mask. On exam patient was not responding to verbal or even mild sternal rub but moaning sound. Deep suctioning was done from nasal cavity and pharyngeal cavity. Hypoxia improved. Patient also waking up. ABG, chest x-ray, Lasix and DuoNeb ordered. BP 127/88. Physical exam: General: Initially unresponsive/and concussed but woke up and responded with groaning after deep suctioning.. HEENT: Atraumatic, PERRLA, EOMI, Normocephalic. Oral: Oral/deep failure mucosa secretions Neck: Supple, No JVD, Negative Carotid Bruits Chest wall/Lungs: Air entry diminished. Transmitted sound from pharyngeal secretions. Mild bibasilar coarse crepitations Cardiovascular: Regular rate and rhythm, Normal S1,S2, No M/G/R Abdomen: Bowel Sounds Present, Soft, Non Tender, Non-Distended : No dysuria. No renal angle tenderness. No suprapubic tenderness. Extremities: No edema, Capillary Refill Less than 3 Seconds Skin: Small, left suprascapular region scab and cutaneous scratch. No active infected wound. Musculoskeletal: No Tenderness to Palpation of Joints or Extremities. Degenerative bony arthritis of bilateral knees Neurological: DTR 2+/4. No acute focal neurological deficit. Psych/Mental Status: Flat affect, dementia Assessment & Plan Assessment/Plan (1) Upper gastrointestinal bleeding: (2) Aspiration pneumonia: PLAN: Plan This 34-year-old gentleman with history of dementia was sent from intermediate for 1 episode of coffee-ground emesis and possible aspiration 1. Possible aspiration pneumonitis: Patient has cough and cognitive dysfunction. CT chest shows scattered patchy airspace opacification in both lung quinn consistent with multifocal pneumonitis along with small bilateral pleural effusion and bibasilar atelectasis. Empirically patient started on IV Unasyn. Triple PCR. Lactic acid 3.1 but patient does not look septic and does not have SIRS criteria therefore does not qualify for sepsis. Lactic acid elevated probably from decreased perfusion and CKD. Speech therapy evaluation 01/21, repeat lactic acid better. Patient hypoxic due to deep pharyngeal secretions. Suctioning was done. ABG, chest x-ray ordered. Level of care changed to stepdown ABG 7.42/35/61/calculated bicarb 24 with base excess -1. Overall it shows high AA gradient with hypoxia but pH and pCO2 in normal limit. Advise suctioning every 4 hours and palliative hospice consult was called. Later on palliative hospice [facility] [employer] had discussion with patient's and family member they agreed for DNR CC hospice care. CODE STATUS and paperwork signed. I also talked to patient's and another family member and they are agreeable with DNR CC hospice care. Patient is going to [facility] probably tomorrow. IV fluid ordered for nutritional support. Patient continues to be n.p.o. MRSA nasal screen positive. Stool for occult blood positive. Preliminary sputum culture shows normal respiratory otilio. Continue IV Unasyn. I would not consider restarting any IV vancomycin or oral antibiotic as patient is n.p.o and DNR CC with no significant benefit 2. Suspected upper GI bleed: Patient had coffee-ground emesis. BUN/creatinine ratio 23.4. H&H 14.5/42. Monitor H&H every 8 hourly. As per ED physician guaic stool was positive and was brown in color. No rectal impaction of the stool. CT shows diverticulosis but no evidence of acute diverticulitis. Retained stool throughout the colon. Stool softener and Dulcolax suppository ordered. Home medication does not show antiplatelet or anticoagulant agent. IV PPI 40 mg twice daily ordered 01/21: H&H 11.3/33.9%.. Will stop the lab. 3. CKD stage IIIb: Patient creatinine on baseline. Last BUN/creatinine 42/1.79 October 13 currently 42/1.81. Clinically patient looks dehydrated therefore IV fluid ordered 4. Acute encephalopathy probably metabolic from hypoxia and secretions with history of dementia with history of anxiety and depression: Patient on Depakote, memantine, clonazepam and Zoloft. Twelve-lead EKG shows NSR 69 bpm, normal EKG. Continue hold oral medication as swallow function needs evaluation. Depakote level done in ED was low in p.m. patient on divalproex 1 Floriva twice daily, increased to Depakote 125 mg IV every 8 hourly. Neurologist consulted for acute encephalopathy. There is no documented past medical history of seizure. Rarely patient on Depakote for depression 5. Chronic constipation: As mentioned above. On a stool softener and Dulcolax suppository Living will/advanced directive/end of life care: Patient does not have living will or advanced directive. The patient himself has dementia and does not have understanding of complexities of advanced directive. After discussion of benefits/risks procedures involved with full code, DNR CC arrest and DNR CC to patient's , her POA for health , she she understood and said DNR CC arrest with no intubation. She said patient did not want CPR or intubation. DNR CC arrest with no intubation. As per POA, patient does not want artificial life support including intubation, tube feed, ventilator and/chest compression, central venous catheter, vasopressor and DC shock if needed As mentioned above, CODE STATUS changed to DNR CC hospice care, IPU unit tomorrow Microbiology Past 72 Hours 01/20/25 23:40 Urine Catheter - Catheter Legionella Antigen - Final 01/20/25 23:40 Urine Catheter - Catheter Streptococcus pneumoniae Antigen (M - Final 01/20/25 18:05 Nasal Secretion MRSA (PCR) - Preliminary 01/20/25 12:30 Mucosa - Nose SARS-CoV-2, Influenza & RSV (PCR) - Final 01/20/25 11:30 Stool Stool Occult Blood (MAG) - Final Occult Blood Positive Laboratory Results 01/20/25 10:15: WBC 13.2 H, RBC 4.65, Hgb 14.5, Hct 42.6, MCV 91.6, MCH 31.2, MCHC 34.0, RDW Std Deviation 47.8 H, RDW Coeff of Eva 14.4, Plt Count 153, MPV 9.4, Immature Gran % (Auto) 0.500, Neut % (Auto) 88.2 H, Lymph % (Auto) 3.4 L, [place] % (Auto) 7.7, Eos % (Auto) 0.0, Baso % (Auto) 0.2, Absolute Neuts (auto) 11.6 H, Absolute Lymphs (auto) 0.45 L, Nucleated RBC % 0, Sodium 137, Potassium 5.6 H, Chloride 102, Carbon Dioxide 20.2 L, Anion Gap 15, BUN 42 H, Creatinine 1.81 H, Estim Creat Clear Calc 35.55 L, Est GFR (MDRD) Non-Af 36 L, BUN/Creatinine Ratio 23.4 H, Glucose 161 H, Lactic Acid 3.1 H*, Calcium 9.7, Phosphorus 3.0, Magnesium 1.9, Total Bilirubin 0.43, AST 26, ALT 22, Alkaline Phosphatase 101, Total Protein 7.5, Albumin 4.0, Globulin 3.5, Albumin/Globulin Ratio 1.2, Lipase 26, Blood Type A POSITIVE, Antibody Screen NEGATIVE 01/20/25 10:35: PT 14.7, INR 1.1, APTT 24.5, Valproic Acid 10 L 01/20/25 14:48: Lactic Acid 2.6 H* 01/20/25 23:40: Urine Color Yellow, Urine Clarity Clear, Urine pH 6.0, Ur Specific [place] 1.015, Urine Protein 15 H, Urine Glucose (UA) Normal, Urine Ketones Negative, Urine Occult Blood Negative, Urine Nitrite Negative, Urine Bilirubin Negative, Urine Urobilinogen Normal, Ur Leukocyte Esterase Negative, Urine RBC 0 SEEN, Urine WBC 0 SEEN, Ur Squamous Epith Cells 0 SEEN, Urine Bacteria 0 SEEN, Urine Mucus 0 SEEN 01/21/25 03:09: WBC 9.5, RBC 3.65 L, Hgb 11.3 L, Hct 33.9 L, MCV 92.9, MCH 31.0, MCHC 33.3, RDW Std Deviation 50.0 H, RDW Coeff of Eva 14.8 H, Plt Count 127 L, MPV 10.0, Immature Gran % (Auto) 0.200, Neut % (Auto) 77.3 H, Lymph % (Auto) 9.2 L, [place] % (Auto) 12.9 H, Eos % (Auto) 0.2, Baso % (Auto) 0.2, Absolute Neuts (auto) 7.3, Absolute Lymphs (auto) 0.87, Nucleated RBC % 0, Sodium 139, Potassium 4.9, Chloride 109 H, Carbon Dioxide 18.6 L, Anion Gap 11, BUN 42 H, Creatinine 1.70 H, Estim Creat Clear Calc 36.26 L, Est GFR (MDRD) Non-Af 39 L, BUN/Creatinine Ratio 24.4 H, Glucose 120 H, Calcium 8.6 Clinical Impression(s) from Imaging Studies Chest/Abdomen/Pelvis CT 01/20/25 11:18 IMPRESSION: No suspicious solid organ abnormality, nonobstructing renal stones. Retained stool throughout the colon with scattered diverticula, no CT evidence of acute diverticulitis, stool may be impacted No free intraperitoneal fluid, air, or suspicious adenopathy Degenerative bony changes Charges/Coding Visit Charges Inpatient E&M: 62134 Subs Hosp L3
--- NOTE | 2025-01-21 08:31 | RAD_ITS ---
PROCEDURE: CHEST 1 VIEW (PORTABLE) 01/21/2025 REASON FOR EXAM: SOB, HYPOXIA TECHNIQUE: Frontal view of the chest. COMPARISON: CT dated January 20, 2025 FINDINGS: Hardware: Dual-chamber right-sided pacemaker in place. Heart: Cardiac and mediastinal contours are stable. Lungs: Subtle ground-glass opacification demonstrated in the lung bases bilaterally worse on the left. There may be a small left-sided pleural effusion. Bones: unremarkable. RAD/Chest 1 View (Portable) IMPRESSION: Subtle bibasilar atelectasis versus consolidation worse on the left. There may be a small left-sided pleural effusion. Reading Location: [place] [address]
[2025-01-21 08:51] LABS: Allen Test Positive; Base Excess -1 mmol/L (-2 to +2); FI02 10.0; PO2 61 mmHG (75-100); SITE R Radial; SO2 92 % (95-99)
--- NOTE | 2025-01-21 09:16 | CASEMGMT ---
Social Work SW called the . The reported the plan would be for the patient to return to [facility]. The reported the patient has a POA and that [facility] should have it. MICHELET Garza
--- NOTE | 2025-01-21 09:25 | CASEMGMT ---
Addendum entered by Loan Cabral 01/21/25 12:03: Pt is private pay and does not require precert unless skilled services are recommended. There are no advanced directives in pts e-chart at . Admissions has requested that pts paper chart be checked. Loan Cabral DC Planning Asst. Original Note: Discharge Planning Updates sent to [facility] with note asking for copies of advanced directives, per SW request, and if precert is needed. Awaiting response. Loan Cabral DC Planning Asst.
[2025-01-21] MEDS: Furosemide 20 MG/2 ML VIAL IV (09:29)
[2025-01-21] MEDS: 0.9% Saline Lock 10 ML Syringe IV ×2 (09:29→21:07)
--- NOTE | 2025-01-21 09:29 | NURSING ---
called patient gave update on change of condition
[2025-01-21 09:38] LABS: Hematocrit 34.8 % (40-54); Hemoglobin 11.5 g/dL (13.0-16.5)
[2025-01-21] MEDS: Pantoprazole Sodium 40 MG in 0.9% Normal Saline (100mL MB+) 100 ML 300 MG IV ×2 (09:40→21:01)
--- NOTE | 2025-01-21 10:10 | CON.PCM.PA_ITS ---
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 Chronic kidney disease, stage 3b Depression, unspecified Unspecified dementia, unspecified severity, without behavioral disturbance, psychotic disturbance, mood disturbance, and anxiety Wedge compression fracture of t11-T12 vertebra, subsequent encounter for fracture with routine healing Home Medications ?Medication ?Instructions ?Recorded ?Last Taken ?Type clonazepam 0.5 mg tablet 0.5 mg PO Q12H ANXIETY 01/2001/19/25 History divalproex 125 mg tablet,delayed 125 mg PO BID dementi a 01/20/25 Unknown History release memantine 5 mg tablet 5 mg PO BID dementia 5 Unknown History polyethylene glycol 3350 17 17 g PO DAILY constipation 01/20/25 Unknown History gram/dose oral powder (Miralax) sertraline 100 mg tablet (Zoloft) 100 mg PO DAILY depr ession 01/20/25 Unknown History sertraline 25 mg tablet 25 mg PO DAILY depresion 06/15 Unknown History Held on 01/20/25. Instructions: Order Completed tamsulosin 0.4 mg capsule 0.4 mg PO QHS BPH 01/20/25 U nknown History Allergy/AdvReac Type Severity Reaction Status Date / Time meperidine Allergy Unknown PT UNSURE Verified 01/20/25 09:47 OF REACTION oxycodone Allergy Unknown PT UNSURE Verified 01/20/25 09:47 OF REACTION Family History unable to obtain Surgical History unable to obtain Social History Smoking Status: Never smoker ROS Review of Systems ROS Unobtainable: due to mental condition and due to mental status Constitutional Constitutional: Reports fatigue Respiratory/Chest Respiratory/Chest: Reports cough Physical Exam Const alert Constitutional Narrative: oriented x 2 Orientation / Consciousness: confused HEENT normocephalic Eyes PERRL Lymph Lymphatic: no lymphadenopathy noted Resp Auscultation: crackles, rhonchi and wheezes Cardio regular rate and regular rhythm GI normal to inspection, nondistended, normoactive bowel sounds Skin Wounds: wounds noted other Left infraspinatus. Neuro Gait (Neuro): unable to assess gait Psych Psych Narrative: Difficulty in assessing this patient is only oriented x 2 and has advanced dementia. He is currently short of breath but has a flat affect. Charges/Coding Palliative Care Palliative Care: 18865 New Pt Consult 80+ min HPI Current admission Current Code Status: DNRCC-A no intubation Associated Diagnosis: Severe dementia, aspiration pneumonia, NPO. Consult Data Date of Consult: 01/21/25 Location of consult: PCU Reason for referral: Goals of care Referral source: Dr. Azul Palliative care diagnosis (Summary list): Advanced dementia, aspiration, FTT Palliative care services/treatment (Accepted, as consult): Accepted Case discussed with referring provider: Goals of care HPI Narrative HPI Narrative: PAIN ASSESSMENT patient currently denies pain. Location: [ ] Quality: [ ] Severity/Quantity: [ ] Timing/Frequency: [ ] Context: [ ] Factors that make it better/worse: [ ] Associated signs & symptoms: [ ] I was called to a stat consult for this patient. Per report, pt is obtunded and not able to clear his own secretions. I then met with the pt at bedside. I introduced myself and the concept of palliative care in which he stated okay. Patient is currently on 8 L nasal cannula and alert. He was able to answer orientation questions of his name and he reported that he was in the hospital. He was unable to tell me the year or the month. Upon assessment the patient has coarse crackles bilaterally with bilateral lower extremity edema. He is currently n.p.o. as he is not safe to intake oral nutrition or hydration. He does have a pressure ulcer to the left shoulder on the posterior aspect. Per report, patient did have coffee-ground emesis previously. He is not eating or drinking and is on aspiration precautions. He does have a history of advanced dementia, depression and anxiety. He is currently on Depakote to manage his behaviors of aggression with his dementia. and [id number] have arrived to the hospital and introduced myself and the concept of palliative care which they voluntarily excepted my services. After an extensive discussion with the patient's and family, it was decided that they would like the patient to go hospice and be comfort care. I did update social work and case management as well as Dr. Azul. Family is requesting the inpatient unit. I do feel that the patient is appropriate for the inpatient unit based on his current presentation and that he is n.p.o. and unable to eat without aspirating. He is requiring deep suction for secretions. All questions answered. CODE STATUS changed to DNR CC. Comfort care orders also placed. per hospitalist: SAMIA RIVERA, is a 84 M with history of dementia/anxiety/depression on multiple medications including clonazepam, divalproex and memantine was sent to ED from [facility] for 1 episode of coffee- ground emesis. Patient is also confused and disoriented to time place and person. As per halfway patient is on AO x 3 at baseline but is hard to believe. As per patient's he fluctuates on his mental capacity and cognition. Patient himself states he has cough but does not know duration but seems chronic. Patient did not have fever. In the ED, the ED physician did the rectal exam and the guaiac was positive and the stool looked brown and stool was not impacted. Patient does not any specific question regarding duration of cough, type, shortness of breath chest pain or abdominal pain nausea but he has inattention and taking out pulse oximetry from finger In ED, overall vitals are stable. CT chest and abdomen was done shows sketchy patchy airspace affecting both lower lung quinn/multifocal pneumonitis along with small bilateral pleural effusion and bibasilar atelectasis. CT abdomen shows retained stool throughout the colon with scattered diverticula but no CT evidence of acute diverticulitis. No free intraperitoneal fluid air or suspicious adenopathy. Reported stool may be impacted. 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 Is a Healthcare Living Will No, requested patient bring 01/20/25 17:49 present in the medical record? copy into [facility] Do you have a Healthcare Power No 01/20/25 17:49 of Director [employer]? Do You Want Additional Declined 01/20/25 17:49 Information on Advanced Directives or Healthcare Proxy/DPOA comments: Bev Psychosocial/Spiritual Information Living situation/Marital status: lives at [facility] Geographic location: [place], [place] Supports: family Denominational/Charlee or spiritual preference: could not tell me Prior functional status: SD mostly in bed Assistive devices at home: uable to tell me Information about the patient as a person: difficulty discussing Symptoms Palliative performance scale: 20% Palliative prognostic index: 15 Dyspnea symptoms: Severe Weakness symptoms: Severe Confusion symptoms: Severe Objective Data Objective Data Vital Signs: Vital Signs Temp Pulse Resp BP Pulse Ox O2 Del Method O2 Flow Rate 98.6 F 83 33 H 112/78 93 Nasal Cannula 8 01/21/25 09:15 01/21/25 09:16 01/21/25 09:16 01/21/25 09:00 01/21/25 09:15 01/21/25 10:04 01/21/25 10:04 Oxygen Flow Rate (L/min) 8 Oxygen Delivery Method Nasal Cannula Weight: 192 lb 0.362 oz Body Mass Index (BMI) 24.6 Intake & Output: Intake and Output for Last 24 Hours 01/19/25 01/20/25 01/21/25 23:59 23:59 23:59 Intake Total 2112.5 / 2112.5 1685 / 1685 Output Total 350 / 350 Balance 2112.5 / 1762.5 1335 / 1335 Lab / Micro Data Attestation: I reviewed the patient's lab results. Lab results narrative: Patient appears to have an MAYRA with a BUN of 42, creatinine 1.7 and a GFR of 39. 01/21/25 09:29 01/21/25 03:09 Labs: Laboratory Results - last 24 hr 01/20/25 10:15: WBC 13.2 H, RBC 4.65, Hgb 14.5, Hct 42.6, MCV 91.6, MCH 31.2, MCHC 34.0, RDW Std Deviation 47.8 H, RDW Coeff of Eva 14.4, Plt Count 153, MPV 9.4, Immature Gran % (Auto) 0.500, Neut % (Auto) 88.2 H, Lymph % (Auto) 3.4 L, Whiteside % (Auto) 7.7, Eos % (Auto) 0.0, Baso % (Auto) 0.2, Absolute Neuts (auto) 11.6 H, Absolute Lymphs (auto) 0.45 L, Nucleated RBC % 0, Sodium 137, Potassium 5.6 H, Chloride 102, Carbon Dioxide 20.2 L, Anion Gap 15, BUN 42 H, Creatinine 1.81 H, Estim Creat Clear Calc 35.55 L, Est GFR (MDRD) Non-Af 36 L, B UN/Creatinine Ratio 23.4 H, Glucose 161 H, Lactic Acid 3.1 H*, Calcium 9.7, Phosphorus 3.0, Magnesium 1.9, Total Bilirubin 0.43, AST 26, ALT 22, Alkaline Phosphatase 101, Total Protein 7.5, Albumin 4.0, Globulin 3.5, Albumin/Globulin Ratio 1.2, Lipase 26, Blood Type A POSITIVE, Antibody Screen NEGATIVE 01/20/25 10:35: PT 14.7, INR 1.1, APTT 24.5, Valproic Acid 10 L 01/20/25 14:48: Lactic Acid 2.6 H* 01/20/25 23:40: Urine Color Yellow, Urine Clarity Clear, Urine pH 6.0, Ur Specific [place] 1.015, Urine Protein 15 H, Urine Glucose (UA) Normal, Urine Ketones Negative, Urine Occult Blood Negative, Urine Nitrite Negative, Urine Bilirubin Negative, Urine Urobilinogen Normal, Ur Leukocyte Esterase Negative, Urine RBC 0 SEEN, Urine WBC 0 SEEN, Ur Squamous Epith Cells 0 SEEN, Urine Bacteria 0 SEEN, Urine Mucus 0 SEEN 01/21/25 03:09: WBC 9.5, RBC 3.65 L, Hgb 11.3 L, Hct 33.9 L, MCV 92.9, MCH 31.0, MCHC 33.3, RDW Std Deviation 50.0 H, RDW Coeff of Eva 14.8 H, Plt Count 127 L, MPV 10.0, Immature Gran % (Auto) 0.200, Neut % (Auto) 77.3 H, Lymph % (Auto) 9.2 L, Whiteside % (Auto) 12.9 H, Eos % (Auto) 0.2, Baso % (Auto) 0.2, Absolute Neuts (auto) 7.3, Absolute Lymphs (auto) 0.87, Nucleated RBC % 0, Sodium 139, Potassium 4.9, Chloride 109 H, Carbon Dioxide 18.6 L, Anion Gap 11, BUN 42 H, C reatinine 1.70 H, Estim Creat Clear Calc 36.26 L, Est GFR (MDRD) Non-Af 39 L, B UN/Creatinine Ratio 24.4 H, Glucose 120 H, Calcium 8.6 01/21/25 09:29: Hgb 11.5 L, Hct 34.8 L Micro: Microbiology 01/20/25 23:40 Urine Catheter - Catheter Legionella Antigen - Final 01/20/25 23:40 Urine Catheter - Catheter Streptococcus pneumoniae Antigen (M - Final 01/20/25 18:05 Nasal Secretion MRSA (PCR) - Preliminary 01/20/25 12:30 Mucosa - Nose SARS-CoV-2, Influenza & RSV (PCR) - Final 01/20/25 11:30 Stool Stool Occult Blood (MAG) - Final Occult Blood Positive ABG Data ABG results: ABG 01/21/25 08:43 Specimen Type ART Sample Site R Radial pH 7.42 Bicarbonate Actual 23.1 Total CO2 24 Base Excess -1 O2 Saturation 92 L O2 % 10.0 ABG pCO2 35.3 ABG pO2 61 L Cade Test Positive O2 Delivery Device HFNC Vent Mode Not entered Attestation: I personally reviewed and interpreted this ABG as follows: Radiography Diagnostic Testing: Radiology Impression Chest/Abdomen/Pelvis CT 01/20/25 11:18 IMPRESSION: No suspicious solid organ abnormality, nonobstructing renal stones. Retained stool throughout the colon with scattered diverticula, no CT evidence of acute diverticulitis, stool may be impacted No free intraperitoneal fluid, air, or suspicious adenopathy Degenerative bony changes Reading Location: [id number] Chest X-Ray 01/21/25 08:31 IMPRESSION: Subtle bibasilar atelectasis versus consolidation worse on the left. There may be a small left-sided pleural effusion. Reading Location: [place] [address] Rhythm Strip Rhythm Strip: Sinus Rhythm Rate: 69 Ectopy: None Impressions & Recommendations Patient & Family Issues discussed with the patient and family: Goals of care going forward Patient goal: Patient is unable to participate in goalsetting at this time. Family goal: transition to hospice IPU. Ethical & Legal Ethical and legal: Patient is unable to make his own decisions will rely on POA Recommentation Palliative recommendations: Based on the patient's advanced dementia and inability to take in oral hydration or nutrition, this patient would be a good candidate for hospice. Encouter Achieved as a result of this Palliative Care Encounter: [[id number], [id number]] minutes were spent in total for this visit which consisted, primarily of counseling and education dealing with the complex and emotionally intense issues of symptom management and palliative care in the setting of serious and potentially life-threatening illness. Review of documentation, labs and radiological studies. ?Patient/family had the opportunity to ask questions Plan (1) Aspiration pneumonia: PLAN: Medical management per primary team (2) CKD (chronic kidney disease): PLAN: Medical management per primary team (3) Upper gastrointestinal bleeding: PLAN: Medical management per primary team (4) Counseling regarding goals of care: PLAN: *awaiting arrival of family to have a GOC conversation (5) Palliative care encounter: PLAN: *recommend comfort measures and hospcie. Pt would qualify for IPU PLAN: Plan *Discharged to IPU, life care. *CODE STATUS changed to DNR CC *Comfort care orders placed.
[2025-01-21] MEDS: WATER IV ×2 (12:06→22:21)
[2025-01-21] MEDS: VALPROATE SODIUM IV ×2 (12:06→22:21)
[2025-01-21] MEDS: DEXTROSE 5% IV ×2 (12:06→22:21)
--- NOTE | 2025-01-21 12:34 | CASEMGMT ---
Addendum entered by Ilene Bahena 01/21/25 13:05: [facility] received the referral. It has been entered and it is on its way to scheduling. Addendum entered by Ilene Bahena 01/21/25 12:39: The physician and the nurse were notified. Original Note: Social Work SW sent a referral to [facility] for IPU services. MICHELET Garza
--- NOTE | 2025-01-21 14:12 | CHAPLAIN ---
Type of Pastoral Visit _x__ Initial Visit ___ Follow-up Visit ___ On-call Visit ___ General Patient Visit ___ Spiritual Assessment ___ Family Conference ___ Bereavement ___ Rapid Response ___ Code Blue ___ Other (describe below) Pastoral Care Referral From ___ Patient _x__ Family ___ Nurse ___ Physician ___ Ferryboat Helper ___ Drying Equipment Operator ___ Other (describe below) Sacrament/Intervention _x__ Active listening ___ Anointing ___ Judaism ___ Bereavement ___ Communion ___ Charlee exploration ___ _x__ Life review _x__ Prayer ___ Reconciliation ___ Sacrament of Sick _x__ Supportive presence ___ Wedding ___ Other (describe below) Pastoral Comments patient is sleeping and not responding to verbal communication; spouse, [id number], and friend are in the room at bedside; family says that pt is from [facility] and it has been decided to enroll in hospice which is prepared to transfer pt out of hospital; offer of support and consoling words given; spouse does not interact much in the conversation but will respond to questions; pt is a member of a local catholic but has not been active; family friend will make contacts with catholic if family desires; prayer is welcomed and given; will be available as needed while pt is in the hospital today
--- NOTE | 2025-01-21 14:43 | CASEMGMT ---
Social Work SW called [facility]. She reported they called the and are waiting for a call back. SW informed her they are to call [facility] and that information was on the fax cover sheet. She reported they would call the [facility] to schedule. MICHELET Garza
--- NOTE | 2025-01-21 15:06 | CASEMGMT ---
Social Work SW spoke with [facility]. She reported they left the [facility] a message. SW went to the patients room and the [facility] was in the room. Hospice spoke with the [facility] and scheduled for 930am on Friday. The physician and the nurse were notified. MICHELET Garza
[2025-01-21] MEDS: Dext 5%-0.45% NS 1,000 ML 50 ML IV (16:43)
--- NOTE | 2025-01-22 00:50 | NURSING ---
Attempted to insert Garza catheter; met resistance during insertion, procedure not completed. Patient is voiding adequately with no signs of urinary retention. Patient has transitioned to hospice care. In alignment with goals of comfort care, Garza catheter will not be placed.
[2025-01-22 04:06] VITALS: BP 137/59; PULSE 60; RESP 20; TEMP 36.6; O2SAT 99
[2025-01-22] MEDS: Ampicillin/Sulbactam 3 GM in 0.9% Normal Saline (100mL MB+) 100 ML IV ×3 (05:01→17:48)
[2025-01-22] MEDS: 0.9% Saline Lock 10 ML Syringe IV ×2 (05:02→23:33)
[2025-01-22 05:56] VITALS: BMI 24.7
[2025-01-22 09:52] VITALS: BP 125/72; PULSE 60; RESP 18; TEMP 36.6; O2SAT 96
[2025-01-22] MEDS: WATER IV ×2 (10:29→23:21)
[2025-01-22] MEDS: VALPROATE SODIUM IV ×2 (10:29→23:21)
[2025-01-22] MEDS: DEXTROSE 5% IV ×2 (10:29→23:21)
[2025-01-22] MEDS: Pantoprazole Sodium 40 MG in 0.9% Normal Saline (100mL MB+) 100 ML 300 MG IV ×2 (10:33→23:56)
--- NOTE | 2025-01-22 13:29 | CASEMGMT ---
Social Work Todays meeting was delayed as family misunderstood and went to the inpt hospice unit for the meeting today. Family did come to the hospital later this morning for the meeting. Hospice nurse met w/pt's and sister in law today regarding hospice. As per , pt does not qualify for the IPU, however pt could return to [facility] on hospice. Family is undecided on hospice services. Pt's daughter is to be here today and family wants to speak w/daughter about what to do. SW spoke w/physician, physician in agreement that family needs to sign on for hospice prior to pt returning to [facility]. At this time pt is NPO due to aspirating, a speech consult was ordered to reassess pt's swallowing. Pt cannot return to SNF with no diet order, unless returning on hospice. [facility], spoke w/RN Rene. He states pt can return to [facility] on hospice. DIETER explained that this may happen tomorrow, depending on what happens today. As per the conversation w/the director of plant operations, it's unclear, if family is agreeable to hospice, if anyone could return today for family to sign documents, and it would likely be tomorrow. DIETER did place a green sheet on the chart in event a decision is made regarding hospice, with instructions to also call hospice w/the d/c time. DIETER will also put in the report for the nursing staff if family does agree to hospice to call hospice back and have them come back in to sign papers. JOSE Sterling
--- NOTE | 2025-01-22 15:16 | CASEMGMT ---
Social Work now agreeable for hospice, she will be here at the hospital for another hour or so. SW confirmed w/ agreeable to hospice. SW called hospice, asked them to call pt's RN as does not have a cell phone, to try and coordinate a time for a meeting yet today w/hospice while is here. If leaves, RN will ask hospice team lead to call at home. SW updated pt's . She stated initially she could not get here tomorrow as she needs a ride and her sister is busy on Friday. SW reminded pt's tomorrow is Friday. states her sister has tenriism, SW explained if the meeting happens tomorrow it could be after tenriism. then states their daughter is coming into town--and then acknowledged she could also help get pt to the hospital if needed tomorrow. SW will continue to follow should pt still be here Friday. JOSE Sterling
--- NOTE | 2025-01-22 15:43 | PCM.PN.HOSP ---
Reason for Visit Chief Complaint: History unclear. 1 episode of coffee-ground vomiting. Altered mental status. Cough unclear duration Subjective Subjective Patient feeling little bit better today, has a little bit of a cough that is not productive, not feeling particularly short of breath at this time, no abdominal pain or chest pain Objective Data Objective Data Vital Signs: Vital Signs Temp Pulse Resp BP Pulse Ox O2 Del Method O2 Flow Rate 97.8 F 60 18 125/72 H 96 Room Air 2 01/22/25 09:52 01/22/25 09:52 01/22/25 09:52 01/22/25 09:52 01/22/25 09:52 01/22/25 09:52 01/21/25 21:12 FiO2 100 01/21/25 08:15 Oxygen Flow Rate (L/min) 2 Oxygen Delivery Method Room Air Weight: 87.3 kg Body Mass Index (BMI) 24.7 Intake & Output: Intake and Output for Last 24 Hours 01/20/25 01/21/25 01/22/25 23:59 23:59 23:59 Intake Total 2112.5 / 2112.5 2354.00 / 2354.00 1383.75 / 1383.75 Output Total 350 / 350 250 / 250 Balance 2112.5 / 1762.5 200400 / 2003. 1133.75 / 1133.75 Lab / Micro Data 01/21/25 09:29 01/21/25 03:09 Micro: Microbiology 01/20/25 12:45 Blood Culture (Wb) - Right Forearm Blood Culture - Preliminary No growth in 48 hours. 01/20/25 12:25 Blood Culture (Wb) - Right Forearm Blood Culture - Preliminary No growth in 48 hours. 01/20/25 18:05 Sputum, Expectorated/Coughed Gram Stain - Final 01/20/25 18:05 Sputum, Expectorated/Coughed Respiratory Culture - Preliminary Presumptive C albicans Staphylococcus aureus 01/20/25 18:05 Nasal Secretion MRSA (PCR) - Final Meth. resistant Staph. aureus 01/20/25 23:40 Urine Catheter - Catheter Legionella Antigen - Final 01/20/25 23:40 Urine Catheter - Catheter Streptococcus pneumoniae Antigen (M - Final 01/20/25 12:30 Mucosa - Nose SARS-CoV-2, Influenza & RSV (PCR) - Final 01/20/25 11:30 Stool Stool Occult Blood (MAG) - Final Occult Blood Positive Rhythm Strip Rhythm Strip: Sinus Rhythm Rate: 69 Ectopy: None Physical Exam Narrative General: Alert, pleasant HEENT: Atraumatic Eyes: Anicteric, normal conjunctiva, extraocular movements grossly intact Neck: Supple Respiratory: Normal respiratory effort, somewhat diminished at the bases Cardiovascular: Regular rate GI: Soft, nontender, nondistended Extremities: No edema Musculoskeletal: Moving all extremities Neuro: No overt focal neurological deficits Skin: No rashes appreciated Psych: Cooperative and pleasant Assessment & Plan Assessment/Plan (1) Aspiration pneumonia: PLAN: Plan # Aspiration pneumonia - CT on presentation showed patchy airspace consolidation in both lungs - There is concern for aspiration - Patient on IV Unasyn - Had attempted to work with speech however patient was unable to cooperate given mental status - More awake and alert today, asked for repeat speech eval # Concern for possible upper GI bleed - Patient with coffee-ground emesis and positive stool guaiac on presentation - Hemoglobin yesterday 11.3 -He is on Protonix - Plan is for patient to return to [facility] with hospice tomorrow, will cease further lab draws # History of dementia - Patient is on Depakote twice daily, this was changed to IV while admitted giving swallowing concerns - Memantine on hold - Klonopin held and patient more alert today per report #Chronic BPH with obstruction -Continue home medications if patient tolerates #DVT ppx: SCDs Michelle Sherman MD Time spent in the patient's overall evaluation, decision-making process, review of diagnostic data, adjustment of management, discussion with other providers, nursing and ancillary staff involved in patient's care documentation, 62 Minutes Charges/Coding Visit Charges Inpatient E&M: 76915 [facility] Hosp L3
[2025-01-22 22:10] VITALS: BP 129/66; PULSE 60; RESP 20; TEMP 37.8; O2SAT 95
[2025-01-22 22:25] VITALS: BP 126/69; PULSE 64; RESP 18; TEMP 38; O2SAT 96
[2025-01-22] MEDS: Senna/Docusate Sodium 1 Tablet 2 TABLET PO (23:23)
[2025-01-23] MEDS: Ampicillin/Sulbactam 3 GM in 0.9% Normal Saline (100mL MB+) 100 ML IV ×2 (00:28→05:40)
[2025-01-23 05:33] VITALS: BP 129/80; PULSE 60; RESP 20; TEMP 36.6; O2SAT 95
[2025-01-23 05:37] VITALS: BMI 25.2
[2025-01-23] MEDS: 0.9% Saline Lock 10 ML Syringe IV (05:40)
[2025-01-23 09:00] VITALS: O2SAT 100
[2025-01-23 09:28] VITALS: BP 132/69; PULSE 60; RESP 18; TEMP 36.8; O2SAT 100
[2025-01-23] MEDS: Senna/Docusate Sodium 1 Tablet 2 TABLET PO (09:32)
[2025-01-23] MEDS: Polyethylene Glycol 3350 17 GM PACKET PO (09:32)
[2025-01-23] MEDS: Divalproex Sodium 125 MG Tablet PO (09:35)
--- NOTE | 2025-01-23 09:52 | TREXTCAR_ITS ---
Diet Diet Order/Speech Therapy: INPATIENT Hospital Diet / Speech Therapy Order(s) 01/22/25 16:47 Diet: Regular - General Food consistency:: Soft & Bite Sized Liquid Consistency:: Regular/Thin Routine Orders/Code Status Suppository Type: Dulcolax 10mg Suppository Frequency: Daily PRN Code Status: DNRCC DC O2, CPAP, BIPAP needs Home O2 Discharge instructions: No Wound(s) left shoulder: Wound Type: Skin Tear R knee: Wound Type: Abrasion Problem/Diagnosis (1) Aspiration pneumonia: Status: Acute Code(s): J69.0 - Pneumonitis due to inhalation of food and vomit Plan # Aspiration pneumonia # Concern for possible upper GI bleed # History of dementia #Chronic BPH with obstruction 84M with a history of dementia, depression, and BPH who presented to [facility] ED 01/20/2025 due to 1 episode of coffee-ground emesis and confusion. In the ED patient was guaiac positive. He had a CT of the chest and abdomen which showed patchy airspace concerning for multifocal pneumonia and there was concern for aspiration pneumonia and patient was started on IV Unasyn. Patient was also placed on IV PPI for possible GI bleed. Given patient's baseline dementia and functional status palliative was consulted and family was agreeable to DNR CC and meeting with hospice. Initially seem the patient would qualify for inpatient hospice on 01/21 due to his very poor health status and mental status however patient more awake and alert on 01/22 and not deemed a candidate for inpatient hospice. He had repeat speech evaluation as he had failed the day prior due to his mental status and had been made n.p.o. Repeat speech evaluation did show patient would be able to have diet with compensatory strategies and assist with feeding. Family agreeable to go back to [facility] with hospice. Patient discharged back to [facility] with the following discharge instructions: DISCHARGE INSTRUCTIONS PLEASE READ *Please take this with you to your next doctors appointment* - Speech therapy currently recommending soft and bite-size solids with thin liquids with compensatory strategies : Standing up for meals/head of bed at 90 degrees, stay upright 30 minutes after oral intake, small bites, small sips, slow rate, alternate bites/solids and sip/liquids, minimize distractions, and cough and reswallow as needed with total feed supervision - You received 4 days of antibiotics for suspected aspiration pneumonia, recommend a dose of Augmentin tonight followed by 3 days of Augmentin twice daily -You will be discharged on Protonix twice a day - Your Klonopin was held due to your increased confusion and you have done well off of this so this was not resumed on discharge, can consider resuming at discretion of physician assuming care -Please call your primary care provider's office upon discharge to schedule a hospital follow up within 1 week. -For any concerning signs or symptoms please call 911 or proceed to the nearest emergency department Allergies/Procedures Done in Hospital Allergies meperidine Allergy (Unknown, Verified 01/20/25 09:47) PT UNSURE OF REACTION oxycodone Allergy (Unknown, Verified 01/20/25 09:47) PT UNSURE OF REACTION Type of Care/Length of Stay Estimated LOS: More Than 30 Days Type of Care Needed: Intermediate Rehab Potential: Poor Prognosis: Poor Additional Orders/Day of Discharge Day of Discharge: 01/23/25 Dietary and Speech Recommendations Dietitian Recommendations/Changes: Recommend advanced diet as tolerated to regular, no added salt per [employer] recommendations. Will monitor weight trends. Discharge Plan Admission Admit Date/Time: 01/20/25 12:52 Primary Reason for Your Visit: Coffee ground emesis Attending Provider: Michelle Sherman Primary Care Provider: Hazel Hernandez Consulting Providers: Florentino Sanchez; Dean Condon; Gabriela Carlos; Gabbie Mcdonald; Pilar Lemus; Skyler Trivedi; Ericka Roberts; Yoav Plascencia; Ant Melton; Mau Mas; Lidia Villagomez; Bianca Ortiz; Cristo Blanco; Gem Jung; Arcenio Baumann; Sophia Alba; Curtis Jewell; Antonio Gomes; Yanick Boyle; Dianne Baron; Grace Mariano; Cori Duggan; Guido Robertson; Lorin Crane; Kellen Rodarte; Trice Wright; Ángela Alvarado NP; Cammy Denton; David Azul Instructions Patient Instructions: Hospice or Palliative Care ... Additional Instructions / Restrictions: DISCHARGE INSTRUCTIONS PLEASE READ *Please take this with you to your next doctors appointment* - Speech therapy currently recommending soft and bite-size solids with thin liquids with compensatory strategies : Standing up for meals/head of bed at 90 degrees, stay upright 30 minutes after oral intake, small bites, small sips, slow rate, alternate bites/solids and sip/liquids, minimize distractions, and cough and reswallow as needed with total feed supervision - You received 4 days of antibiotics for suspected aspiration pneumonia, recommend a dose of Augmentin tonight followed by 3 days of Augmentin twice daily -You will be discharged on Protonix twice a day - Your Klonopin was held due to your increased confusion and you have done well off of this so this was not resumed on discharge, can consider resuming at discretion of provider assuming care -Please call your primary care provider's office upon discharge to schedule a hospital follow up within 1 week. -For any concerning signs or symptoms please call 911 or proceed to the nearest emergency department Discharge Orders/Prescriptions Prescriptions: New amoxicillin-pot clavulanate 400-57 mg/5 mL suspension for reconstitution 10 ml PO BID 4 Days Qty: 80 0RF Rx Instructions: First dose evening of 10/5 pantoprazole [Protonix] 40 mg tablet,delayed release (DR/EC) 40 mg PO BID 30 Days Qty: 60 0RF Continued divalproex 125 mg tablet,delayed release (DR/EC) 125 mg PO BID memantine 5 mg tablet 5 mg PO BID tamsulosin 0.4 mg capsule 0.4 mg PO QHS polyethylene glycol 3350 [Miralax] 17 gram/dose powder 17 g PO DAILY sertraline [Zoloft] 100 mg tablet 100 mg PO DAILY Discontinued clonazepam 0.5 mg tablet 0.5 mg PO Q12H Rx Instructions: TAKE 1 TAB 0.5mg in the morning and 0.5 tab 0.25mg at QHS sertraline 25 mg tablet 25 mg PO DAILY Patient Comments: completed Referrals / Follow Up: Hazel Hernandez MD [Primary Care Provider, Family Practice] - Within 1 Week Disposition Disposition (needs filled in before D/C Order can be placed): NonSkilled NH/Intermed Care
--- NOTE | 2025-01-23 09:59 | DS.PCM_ITS ---
Providers Date of Admission: 01/20/25 Date of Discharge: 01/23/25 Primary Care Physician: Dr. Hazel Hernandez MD Consultations 01/21/25 08:41 Consult: Tele-Neurology Routine Consulting Provider: [facility] Reason for Consult: AMS, Dementia on Divalroproex, Clonzaepam EMERGENT Consult: No MD Notified: Yes Date Notified: 01/21/25 Time Notified: 09:13 Method of Notification: Answering Service Nursing Unit Staff Notify [facility] of Tele-Neurology Consult: Yes 01/21/25 09:43 Consult: Inpatient Palliative Care Routine Consulting Provider: Cori Duggan Reason for Consult: AMS/aspiration/NH patient, DNRCC-A talked to EMERGENT Consult: No MD Notified: Yes Date Notified: 01/21/25 Time Notified: 09:43 Method of Notification: Text 01/21/25 12:27 Consult: Hospice / Outpatient Palliative Care Routine Consulting Provider: [facility] Reason for Consult: end of life, aspirataion pneumonia, GI bleed, NPO EMERGENT Consult: Yes MD Notified: Yes Date Notified: 01/21/25 Time Notified: 12:27 Method of Notification: Text Reason For Visit: GI BLEED Diagnosis Discharge Diagnosis (1) Aspiration pneumonia: Status: Acute Code(s): J69.0 - Pneumonitis due to inhalation of food and vomit Plan # Aspiration pneumonia # Concern for possible upper GI bleed # History of dementia #Chronic BPH with obstruction Medications at Discharge Home Medications divalproex 125 mg tablet,delayed release 125 mg PO BID dementia 01/20/25 memantine 5 mg tablet 5 mg PO BID dementia 01/20/25 polyethylene glycol 3350 17 gram/dose oral powder (Miralax) 17 g PO DAILY constipation 01/20/25 sertraline 100 mg tablet (Zoloft) 100 mg PO DAILY depression 01/20/25 tamsulosin 0.4 mg capsule 0.4 mg PO QHS BPH 01/20/25 amoxicillin 400 mg-potassium clavulanate 57 mg/5 mL oral suspension 10 ml PO BID 4 days #80 mL 01/23/25 pantoprazole 40 mg tablet,delayed release (Protonix) 40 mg PO BID 30 days #60 tabs 01/23/25 Hospital Course Summary of Care Provided Minutes Spent on Discharge: 35 Hospital Course: 84M with a history of dementia, depression, and BPH who presented to [facility] ED 01/20/2025 due to 1 episode of coffee-ground emesis and confusion. In the ED patient was guaiac positive. He had a CT of the chest and abdomen which showed patchy airspace concerning for multifocal pneumonia and there was concern for aspiration pneumonia and patient was started on IV Unasyn. Patient was also placed on IV PPI for possible GI bleed. Given patient's baseline dementia and functional status palliative was consulted and family was agreeable to DNR CC and meeting with hospice. Initially seem the patient would qualify for inpatient hospice on 01/21 due to his very poor health status and mental status however patient more awake and alert on 01/22 and not deemed a candidate for inpatient hospice. He had repeat speech evaluation as he had failed the day prior due to his mental status and had been made n.p.o. Repeat speech evaluation did show patient would be able to have diet with compensatory strategies and assist with feeding. Family agreeable to go back to [facility] with hospice. Patient discharged back to [facility] with hospice with the following discharge instructions: DISCHARGE INSTRUCTIONS PLEASE READ *Please take this with you to your next doctors appointment* - Speech therapy currently recommending soft and bite-size solids with thin liquids with compensatory strategies : Standing up for meals/head of bed at 90 degrees, stay upright 30 minutes after oral intake, small bites, small sips, slow rate, alternate bites/solids and sip/liquids, minimize distractions, and cough and reswallow as needed with total feed supervision - You received 4 days of antibiotics for suspected aspiration pneumonia, recommend a dose of Augmentin tonight followed by 3 days of Augmentin twice daily -You will be discharged on Protonix twice a day - Your Klonopin was held due to your increased confusion and you have done well off of this so this was not resumed on discharge, can consider resuming at discretion of physician assuming care -Please call your primary care provider's office upon discharge to schedule a hospital follow up within 1 week. -For any concerning signs or symptoms please call 911 or proceed to the nearest emergency department Physical Exam Narrative General: Alert, pleasant HEENT: Atraumatic Eyes: Anicteric, normal conjunctiva, extraocular movements grossly intact Neck: Supple Respiratory: Normal respiratory effort, somewhat diminished at the bases, no wheezes appreciated Cardiovascular: Regular rate GI: Soft, nontender, nondistended Extremities: No edema Musculoskeletal: Moving all extremities Neuro: No overt focal neurological deficits Skin: No rashes appreciated Psych: Cooperative and pleasant Weight / BMI Weight Weight: 89 kg Body Mass Index (BMI) 25.2 ABG / Lab / Microbiology Data 01/21/25 09:29 01/21/25 03:09 Microbiology: Microbiology 01/20/25 12:45 Blood Culture (Wb) - Right Forearm Blood Culture - Preliminary No growth in 48 hours. 01/20/25 12:25 Blood Culture (Wb) - Right Forearm Blood Culture - Preliminary No growth in 48 hours. 01/20/25 18:05 Sputum, Expectorated/Coughed Gram Stain - Final 01/20/25 18:05 Sputum, Expectorated/Coughed Respiratory Culture - Preliminary Presumptive C albicans Staphylococcus aureus 01/20/25 18:05 Nasal Secretion MRSA (PCR) - Final Meth. resistant Staph. aureus 01/20/25 23:40 Urine Catheter - Catheter Legionella Antigen - Final 01/20/25 23:40 Urine Catheter - Catheter Streptococcus pneumoniae Antigen (M - Final 01/20/25 12:30 Mucosa - Nose SARS-CoV-2, Influenza & RSV (PCR) - Final 01/20/25 11:30 Stool Stool Occult Blood (MAG) - Final Occult Blood Positive D/C Instructions DC O2, CPAP, BIPAP Needs Home O2 Discharge instructions: No Meaningful Use Info Meaningful Use Meaningful Use Diagnoses (Choose all that apply): None applicable Discharge Plan Admission Admit Date/Time: 01/20/25 12:52 Primary Reason for Your Visit: Coffee ground emesis Attending Provider: Michelle Sherman Primary Care Provider: Hazel Hernandez Consulting Providers: Florentino Sanchez; Dean Condon; Gabriela Carlos; Gabbie Mcdonald; Pilar Lemus; Skyler Trivedi; Ericka Roberts; Yoav Plascencia; Ant Melton; Mau Mas; Lidia Villagomez; Bianca Ortiz; Cristo Blanco; Gem Jung; Arcenio Baumann; Sophia Alba; Curtis Jewell; Antonio Gomes; Yanick Boyle; Dianne Baron; Grace Mariano; Cori Duggan; Guido Robertson; Lorin Crane; Kellen Rodarte; Trice Wright; Ángela Alvarado NP; Cammy Denton; David Azul Instructions Patient Instructions: Hospice or Palliative Care ... Additional Instructions / Restrictions: DISCHARGE INSTRUCTIONS PLEASE READ *Please take this with you to your next doctors appointment* - Speech therapy currently recommending soft and bite-size solids with thin liquids with compensatory strategies : Standing up for meals/head of bed at 90 degrees, stay upright 30 minutes after oral intake, small bites, small sips, slow rate, alternate bites/solids and sip/liquids, minimize distractions, and cough and reswallow as needed with total feed supervision - You received 4 days of antibiotics for suspected aspiration pneumonia, recommend a dose of Augmentin tonight followed by 3 days of Augmentin twice daily -You will be discharged on Protonix twice a day - Your Klonopin was held due to your increased confusion and you have done well off of this so this was not resumed on discharge, can consider resuming at discretion of provider assuming care -Please call your primary care provider's office upon discharge to schedule a hospital follow up within 1 week. -For any concerning signs or symptoms please call 911 or proceed to the nearest emergency department Discharge Orders/Prescriptions Prescriptions: New amoxicillin-pot clavulanate 400-57 mg/5 mL suspension for reconstitution 10 ml PO BID 4 Days Qty: 80 0RF Rx Instructions: First dose evening of 10/5 pantoprazole [Protonix] 40 mg tablet,delayed release (DR/EC) 40 mg PO BID 30 Days Qty: 60 0RF Continued divalproex 125 mg tablet,delayed release (DR/EC) 125 mg PO BID memantine 5 mg tablet 5 mg PO BID tamsulosin 0.4 mg capsule 0.4 mg PO QHS polyethylene glycol 3350 [Miralax] 17 gram/dose powder 17 g PO DAILY sertraline [Zoloft] 100 mg tablet 100 mg PO DAILY Discontinued clonazepam 0.5 mg tablet 0.5 mg PO Q12H Rx Instructions: TAKE 1 TAB 0.5mg in the morning and 0.5 tab 0.25mg at QHS sertraline 25 mg tablet 25 mg PO DAILY Patient Comments: completed Referrals / Follow Up: Hazel Hernandez MD [Primary Care Provider, Family Practice] - Within 1 Week Disposition Disposition (needs filled in before D/C Order can be placed): NonSkilled NH/Intermed Care Charges/Coding Visit Charges Inpatient E&M: 90999 Disch Hosp >30min
--- NOTE | 2025-01-23 10:18 | NURSING ---
Call received from jasw[facility]. Update provided as request.
--- NOTE | 2025-01-23 11:05 | NURSING ---
Call placed to [facility] for nurse to nurse report. Nurse not available, gave MS call back number to Kira with request for nurse to call when available.
--- NOTE | 2025-01-23 11:22 | NURSING ---
Nurse to nurse report given to Rene @ [facility]. Advised of transfer time of 1130.
== END 2025-01-23 12:04 | disposition intermediate care facility (04) | DRG 177 ==
LOC: ED 11:17 → PCU 15:17 → MS3 01-22 22:12
PROVIDERS: Admitting Provider Internal Medicine; Emergency Provider Emergency Medicine; PCP Hospitalist; Visit Provider Internal Medicine
DX: J69.0 Pneumonitis due to inhalation of food and vomit (principal); G93.41 Metabolic encephalopathy; E87.20 Acidosis, unspecified; K92.2 Gastrointestinal hemorrhage, unspecified; F03.93 Unspecified dementia, unspecified severity, with mood disturbance; F03.94 Unspecified dementia, unspecified severity, with anxiety; N13.8 Other obstructive and reflux uropathy; L89.129 Pressure ulcer of left upper back, unspecified stage; Z51.5 Encounter for palliative care; R62.7 Adult failure to thrive; N18.32 Chronic kidney disease, stage 3b; E86.0 Dehydration; D72.829 Elevated white blood cell count, unspecified; M17.0 Bilateral primary osteoarthritis of knee; K59.09 Other constipation; E87.5 Hyperkalemia; Z66 Do not resuscitate; N40.1 Benign prostatic hyperplasia with lower urinary tract symptoms; R09.02 Hypoxemia; Z79.899 Other long term (current) drug therapy; Z68.25 Body mass index [BMI] 25.0-25.9, adult
CPT/HCPCS: 36415; 36600; 71045; 71250; 74176; 80048; 80053; 80164; 81001; 82274; 82803; 83605; 83690; 83735; 84100; 85014; 85018; 85025; 85610; 85730; 86850; 86900; 86901; 87040; 87070; 87077; 87149; 87184; 87186; 87205; 87449; 87631; 87641; 92526; 92610; 93005; 94668; 99285; A4216; J0295; J1938; J2405